=== PATIENT | male | born 1935 | race Caucasian/White ===

== ENCOUNTER → 2016-08-23 | Outpatient (CLI) | payer OTHER ==
[~2016-08-23] MED LIST: ASPI325T4 PO; CYAN10005 PO; GLC/500 PO; LOVA40TA3 PO; MULT-506 PO; ZOLP5TAB PO
[2016-08-23 09:39] LABS: BASO % 0.2 %; BASO ABS # 0.01 K/uL (0-0.2); COMPLETE YES; HEMATOCRIT 42.3 % (42-52); IG% 0.2 %; LYMPH % 41.2 %; LYMPH ABS # 1.86 K/uL (1.2-3.4); MEAN CELL VOLUME 98.4 fL (80-100); MEAN CORPUSCULAR HEMOGLOBIN 31.6 pg (25-34); MEAN CORPUSCULAR HGB CONC 32.2 g/dl (32-36); MEAN PLATELET VOLUME 10.6 fL (7.4-10.4); MONO % 10.8 %; NEUT % 43.6 %; PLATELET COUNT 193 K/uL (130-400); WHITE BLOOD COUNT 4.52 K/uL (4.8-10.8)
[2016-08-23 09:55] LABS: ESTIMATED AVERAGE GLUCOSE 120 mg/dl; HA1C FLAG Normal (Normal)
[2016-08-23 10:02] LABS: ALT/SGPT 20 U/L (12-78); BLOOD UREA NITROGEN 19 mg/dl (7-18); BUN/CREATININE RATIO 20.9 (10-20); CARBON DIOXIDE 30 mmol/L (21-32); CHLORIDE 109 mmol/L (98-107); CHOLESTEROL 158 mg/dl (0-200); CREATININE 0.89 mg/dl (0.60-1.40); GLUCOSE 114 mg/dl (70-99); POTASSIUM 4.1 mmol/L (3.5-5.1); SODIUM 145 mmol/L (136-145); TRIGLYCERIDES 61 mg/dl (0-150); VERY LOW DENSITY LIPOPROT CALC 12 mg/dl
[2016-08-23 10:07] LABS: ALB/GLOB RATIO 1.1 (0.9-2); ALKALINE PHOSPHATASE 49 U/L (45-117); AST/SGOT 15 U/L (15-37); CHOLESTEROL/HDL RATIO 2.3; HDL CHOLESTEROL 70 mg/dl; LDL CHOLESTEROL CALCULATED 76 mg/dl
== END | disposition home or self-care (01) ==
LOC: C.LAB 08:16
PROVIDERS: ATTEND Family Medicine
DX: E11.9 Type 2 diabetes mellitus without complications (principal); E78.5 Hyperlipidemia, unspecified; G47.30 Sleep apnea, unspecified; Z12.5 Encounter for screening for malignant neoplasm of prostate

== ENCOUNTER → 2017-02-24 | Outpatient (CLI) | payer OTHER ==
[2017-02-24 10:06] LABS: BASO % 0.4 %; BASO ABS # 0.02 K/uL (0-0.2); COMPLETE YES; EOS % 2.8 %; HEMATOCRIT 42.3 % (42-52); IG% 0.4 %; LYMPH % 30.1 %; LYMPH ABS # 1.41 K/uL (1.2-3.4); MEAN CELL VOLUME 98.1 fL (80-100); MEAN CORPUSCULAR HEMOGLOBIN 32.5 pg (25-34); MEAN CORPUSCULAR HGB CONC 33.1 g/dl (32-36); MEAN PLATELET VOLUME 10.4 fL (7.4-10.4); MONO % 11.1 %; NEUT % 55.2 %; PLATELET COUNT 189 K/uL (130-400); RED BLOOD COUNT 4.31 M/uL (4.7-6.1); WHITE BLOOD COUNT 4.68 K/uL (4.8-10.8)
[2017-02-24 10:17] LABS: ESTIMATED AVERAGE GLUCOSE 123 mg/dl; HA1C FLAG Normal (Normal)
[2017-02-24 10:46] LABS: VERY LOW DENSITY LIPOPROT CALC 12 mg/dl
[2017-02-24 10:50] LABS: ALT/SGPT 25 U/L (12-78); AST/SGOT 22 U/L (15-37); BLOOD UREA NITROGEN 16 mg/dl (7-18); BUN/CREATININE RATIO 19.1 (10-20); CALCIUM 8.8 mg/dl (8.5-10.1); CARBON DIOXIDE 28 mmol/L (21-32); CHLORIDE 105 mmol/L (98-107); CHOLESTEROL 143 mg/dl (0-200); CHOLESTEROL/HDL RATIO 2.3; CREATININE 0.83 mg/dl (0.60-1.40); GLUCOSE 120 mg/dl (70-99); LDL CHOLESTEROL CALCULATED 71 mg/dl; POTASSIUM 4.1 mmol/L (3.5-5.1); SODIUM 140 mmol/L (136-145); TRIGLYCERIDES 57 mg/dl (0-150)
[2017-02-24 11:06] LABS: ALKALINE PHOSPHATASE 64 U/L (45-117); HDL CHOLESTEROL 63 mg/dl; TOTAL IRON BINDING CAPACITY 289 mcg/dl (250-450)
== END | disposition home or self-care (01) ==
LOC: C.LAB 09:18
PROVIDERS: ATTEND Family Medicine
DX: E88.81 Metabolic syndrome and other insulin resistance (principal); E55.9 Vitamin D deficiency, unspecified; D51.9 Vitamin B12 deficiency anemia, unspecified; E78.9 Disorder of lipoprotein metabolism, unspecified; R53.83 Other fatigue

== ENCOUNTER → 2017-04-29 | Outpatient (CLI) | payer OTHER ==
--- NOTE | 2017-04-29 11:19 | DIAGNOSTIC IMAGING REPORT ---
CT SCAN OF THE ABDOMEN AND PELVIS WITHOUT IV CONTRAST CLINICAL HISTORY: Benign prostatic hyperplasia with urinary obstruction. COMPARISON STUDY: Abdominal CT dated 11/30/2015. TECHNIQUE: CT scan of the abdomen and pelvis is performed from the lung bases to the proximal femora. Images are reviewed in the axial, sagittal, and coronal planes. IV contrast was not administered for this examination as per the referring clinician. Note that the examination was performed in suboptimal fashion without IV contrast. A dose lowering technique was utilized adhering to the principles of ALARA. CT DOSE: 1515.63 mGy.cm FINDINGS: Lung bases: The heart is top normal in size and without pericardial effusion. Calcified pleural plaques are present at both lung bases. There are foci of bibasilar scarring versus atelectasis. Round atelectasis is suggested at the left lung base image #16. This is unchanged from 2016. There is a tiny hiatal hernia. Liver: The unenhanced liver is normal in size, contour, and attenuation. There is mild central intrahepatic biliary ductal dilatation. A calcified granuloma is noted in the right lobe. Gallbladder: Surgically absent. Spleen: Normal in size and attenuation. There are calcified splenic granulomas. Pancreas: The unenhanced pancreas is moderately atrophic and grossly unremarkable. Adrenal glands: Unremarkable. Kidneys: The unenhanced kidneys are atrophic and without hydronephrosis. There are at least 3 nonobstructing right renal calculi measuring up to 7 mm. No left renal calculi are seen. A 4 cm cyst arises from the upper pole of the left kidney. A 2.7 cm cyst is seen in the interpolar right kidney. Abdominal vasculature: The abdominal aorta is normal in course and caliber noting moderate atherosclerotic calcification. Bowel: There is mild to moderate colonic fecal retention. No bowel obstruction is seen. The appendix is not identified and reported surgically absent. Peritoneum: There is no intraperitoneal free air or abdominal ascites. Lymphadenopathy: None. Pelvic viscera: The the prostate gland is enlarged and heterogeneous, measuring 5.8 cm in transverse diameter. There is median lobe hypertrophy. Although decompressed, the bladder wall appears mildly thickened and trabeculated suggesting the sequelae of chronic outlet obstruction. Skeletal structures: The skeletal structures are osteopenic. Mild to moderate lumbosacral spondylosis is noted. No lytic or blastic lesions are seen. IMPRESSION: 1. Prostatomegaly with evidence of chronic bladder outlet obstruction. 2. Nonobstructing right renal calculi. 3. There are no acute infectious or inflammatory findings in the abdomen or pelvis. 4. Mild to moderate colonic fecal retention. 5. Additional findings as above. Electronically signed by: Kareem Bolden M.D. 04/29/2017 11:18 AM Dictated Date/Time: 04/29/2017 11:11 AM
== END | disposition home or self-care (01) ==
LOC: C.CTS 10:57
PROVIDERS: ATTEND Urology
DX: N40.1 Benign prostatic hyperplasia with lower urinary tract symptoms (principal); K59.00 Constipation, unspecified; N20.0 Calculus of kidney

== ENCOUNTER → 2017-05-26 | Outpatient (CLI) | payer OTHER ==
[~2017-05-26] MED LIST changes: +BERB1TAB PO; +FINA5TAB PO; +FLM4 PO; -GLC/500 PO; +HYDR-5688 PO; +LOVA20TA4 PO; -LOVA40TA3 PO; +PRT/20 PO
--- NOTE | 2017-05-26 13:57 | DIAGNOSTIC IMAGING REPORT ---
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 Appear to be similar compared to the prior study. Possible small calcification overlying the medial aspect left kidney. Bowel pattern is nonobstructive. Fecal material obscures components of the kidneys. 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 These findings are similar as compared to the CT study. The above report was generated using voice recognition software. It may contain grammatical, syntax or spelling errors. Electronically signed by: Vasu Chawla M.D. 05/26/2017 1:56 PM Dictated Date/Time: 05/26/2017 1:55 PM
== END | disposition home or self-care (01) ==
LOC: C.RAD 13:28
PROVIDERS: ATTEND Urology
DX: E83.59 Other disorders of calcium metabolism (principal); N29 Other disorders of kidney and ureter in diseases classified elsewhere

== ENCOUNTER → 2017-05-27 | Day surgery (SDC) | payer OTHER ==
[2017-05-16 13:02] LABS: BASO % 0.1 %; BASO ABS # 0.01 K/uL (0-0.2); EOS % 1.7 %; EOS ABS # 0.12 K/uL (0-0.5); HEMATOCRIT 42.9 % (42-52); HEMOGLOBIN 14.5 g/dL (14.0-18.0); IG# 0.03 K/uL (0.00-0.02); LYMPH % 22.7 %; LYMPH ABS # 1.63 K/uL (1.2-3.4); MEAN CELL VOLUME 96.2 fL (80-100); MEAN CORPUSCULAR HEMOGLOBIN 32.5 pg (25-34); MEAN CORPUSCULAR HGB CONC 33.8 g/dl (32-36); MEAN PLATELET VOLUME 10.3 fL (7.4-10.4); MONO % 7.4 %; MONO ABS # 0.53 K/uL (0.11-0.59); NEUT % 67.7 %; NEUT ABS # 4.86 K/uL (1.4-6.5); PLATELET COUNT 189 K/uL (130-400); RED CELL DISTRIBUTION WIDTH CV 13.2 % (11.5-14.5); RED CELL DISTRIBUTION WIDTH SD 46.9 fL (36.4-46.3); WHITE BLOOD COUNT 7.18 K/uL (4.8-10.8)
--- NOTE | 2017-05-16 13:09 | DIAGNOSTIC IMAGING REPORT ---
CHEST 2 VIEWS ROUTINE CLINICAL HISTORY: N20.0 [id number] COMPARISON STUDY: 12/18/2015 FINDINGS: Underlying emphysema is suspected. The heart is borderline enlarged. There is no lobar consolidation. There is a calcified left midlung zone granuloma. There is a small right pleural effusion. There is slight interstitial thickening at the lung bases right greater than left. Pleural calcifications on the right are suspected.[ IMPRESSION: Small right pleural effusion. Mild interstitial thickening. No evidence of focal pulmonary consolidation Electronically signed by: Portillo Nuñez M.D. 05/16/2017 1:07 PM Dictated Date/Time: 05/16/2017 1:06 PM
[2017-05-16 14:51] LABS: BLOOD UREA NITROGEN 13 mg/dl (7-18); CARBON DIOXIDE 30 mmol/L (21-32); POTASSIUM 4.1 mmol/L (3.5-5.1); SODIUM 142 mmol/L (136-145)
[2017-05-17 13:19] VITALS: Ht 180.3 cm; Wt 118.2 kg
[~2017-05-27] VITALS: Ht 180.3 cm; Wt 118.2 kg
[~2017-05-27] MED LIST changes: +ACETAMINOPHEN 325 MG TAB PO PRN; +ATROPINE SULFATE 0.1 MG/ML 5ML SYR IV PRN; +CIPROFLOXACIN 400MG / D5W IV SCH; +EpHEDrine SULFATE INJ 50 MG/ML AMP IV PRN; +EpHEDrine SULFATE INJ 50 MG/ML AMP ONE; +FENTANYL CITRATE INJ 50 MCG/1 ML 2 ML VIAL IV PRN; +FENTANYL CITRATE INJ 50 MCG/1 ML 2 ML VIAL ONE; +GLYCOPYRROLATE INJ 0.2 MG/ML VIAL ONE; +HYDROCODONE/ACETAMIN 5/325MG TAB PO PRN; +LACTATED RINGER'S 1000ML 1,000 ML IV SCH; +LIDOCAINE HCL 2% 2 ML VIAL (20MG/ML) ONE; +ONDANSETRON INJ 2 MG/ML 2 ML VIAL IV PRN; +PROPOFOL IV EMULSION 10 MG/ML 20 ML VIAL IV ONE; +SODIUM CHLORIDE 0.9% 1000ML 1,000 ML IV SCH
--- NOTE | 2017-05-27 07:29 | History & Physical Bridge Note ---
H&P Re-Evaluation Bridge Note: I have examined the patient, reviewed the History & Physical and in the interval since the performance of the History & Physical I have noted the following changes of clinical significance: No changes noted
--- NOTE | 2017-05-27 08:20 | [facility] Operative Report ---
Operative Report Operative Date May 27, 2017. Pre-Operative Diagnosis nephrolithiasis Post-Operative Diagnosis nephrolithiasis Procedure(s) Performed ESWL (right) Surgeon Ja Fell Cutter Surgeon(s) none Estimated Blood Loss 0cc Findings R renal stone (2 are very visible on fluoro - 3 on KUB) Drains None Anesthesia Type General Complication(s) none Disposition yes Indications stones Description of Procedure The patient was identified in the preoperative holding area, appropriate informed consent was reviewed and completed and the patient was transported to the operating suite. Upon arrival appropriate preoperative antibiotics were administered and general anesthesia induced. The patient was placed in supine position and the stone was localized under fluoroscopy. A total of 2500 shocks were delivered to the stone. There appeared to be good fragmentation of the stone. Details of this procedure can be found on the [facility] information sheet. At the conclusion of the case the patient was extubated and taken to the PACU in stable condition. There were no complications. I attest to the content of the Intraoperative Record and any orders documented therein. Any exceptions are noted below.
--- NOTE | 2017-05-27 08:23 | Discharge Instructions ---
Discharge Instructions Date of Service May 27, 2017. Admission Reason for Admission: Stones Discharge Discharge Diagnosis / Problem: stones Discharge Goals Goal(s): Decrease discomfort, Improve function, Increase independence, Improve disease control Activity Recommendations Activity Limitations: resume your previous activity Lifting Limitations: none Exercise/Sports Limitations: none May Resume Sexual Activity: when tolerated Shower/Bathe: no limitations Driving or Machine Use: resume 1 day after discharge . Instructions / Follow-Up Instructions / Follow-Up Please keep your previously scheduled follow up Current Hospital Diet Patient's current hospital diet: Discharge Diet Recommended Diet: Regular Diet Procedures Procedures Performed: ESWL (right) Pending Studies Studies pending at discharge: no Medical Emergencies . Who to Call and When: Medical Emergencies: If at any time you feel your situation is an emergency, please call 911 immediately. . Non-Emergent Contact Non-Emergency issues call your: Urologist Call Non-Emergent contact if: you have a fever, temperature is above 101.5, your pain is not controlled, your pain is worsening . . "Provider Documentation" section prepared by Hunter Jacome. . [place] Drug Monitoring Program Search Results: patient reviewed within database, no issues identified
[2017-05-27 09:40] VITALS: TEMP 36.2
[2017-05-27 10:12] VITALS: BP 158/81; PULSE 79; O2SAT 98
--- NOTE | 2017-05-27 10:42 | Anesthesia Progress Nt - [facility] ---
Anesthesia Post Op Note Date & Time May 27, 2017 at 10:42 Vital Signs Pain Intensity: 0 Vital Signs Past 12 Hours Date Time Temp Pulse Resp B/P (MAP) Pulse Ox O2 Delivery O2 Flow Rate FiO2 05/27/17 10:12 79 18 158/81 (106) 98 Room Air 05/27/17 09:40 36.2 71 18 142/80 (100) 94 Room Air 05/27/17 09:28 77 16 05/27/17 09:28 77 16 96 05/27/17 09:26 141/95 05/27/17 09:26 36.4 77 13 141/95 96 Room Air 05/27/17 09:23 67 16 100 05/27/17 09:23 67 16 05/27/17 09:20 147/74 05/27/17 09:18 57 15 100 05/27/17 09:18 58 15 05/27/17 09:15 142/76 05/27/17 09:13 74 16 100 05/27/17 09:13 63 16 05/27/17 09:10 141/82 05/27/17 09:08 73 15 05/27/17 09:08 72 15 100 05/27/17 09:05 143/75 05/27/17 09:03 67 16 100 05/27/17 09:03 68 16 05/27/17 09:00 146/80 05/27/17 08:58 75 18 100 05/27/17 08:58 74 18 05/27/17 08:55 138/78 05/27/17 08:53 82 17 100 05/27/17 08:53 80 17 05/27/17 08:50 146/81 05/27/17 08:49 147/86 05/27/17 08:48 36.3 74 16 147/86 100 Mask 6 05/27/17 06:40 36.7 74 18 183/87 (119) 98 Room Air Notes Mental Status: alert / awake / arousable, participated in evaluation Pt Amnestic to Procedure: Yes Nausea / Vomiting: adequately controlled Pain: adequately controlled Airway Patency, RR, SpO2: stable & adequate BP & HR: stable & adequate Hydration State: stable & adequate Anesthetic Complications: no major complications apparent
== END | disposition home or self-care (01) ==
LOC: X.SURG 06:18
PROVIDERS: ATTEND Urology
DX: N20.0 Calculus of kidney (principal); R31.0 Gross hematuria; N40.1 Benign prostatic hyperplasia with lower urinary tract symptoms; N13.8 Other obstructive and reflux uropathy; G47.30 Sleep apnea, unspecified; E78.5 Hyperlipidemia, unspecified; E11.9 Type 2 diabetes mellitus without complications; Z79.82 Long term (current) use of aspirin; Z79.899 Other long term (current) drug therapy

== ENCOUNTER → 2017-06-07 | Outpatient (CLI) | payer OTHER ==
[~2017-06-07] MED LIST changes: -ACETAMINOPHEN 325 MG TAB PO PRN; -ATROPINE SULFATE 0.1 MG/ML 5ML SYR IV PRN; -CIPROFLOXACIN 400MG / D5W IV SCH; -EpHEDrine SULFATE INJ 50 MG/ML AMP IV PRN; -EpHEDrine SULFATE INJ 50 MG/ML AMP ONE; -FENTANYL CITRATE INJ 50 MCG/1 ML 2 ML VIAL IV PRN; -FENTANYL CITRATE INJ 50 MCG/1 ML 2 ML VIAL ONE; -GLYCOPYRROLATE INJ 0.2 MG/ML VIAL ONE; -HYDROCODONE/ACETAMIN 5/325MG TAB PO PRN; -LACTATED RINGER'S 1000ML 1,000 ML IV SCH; -LIDOCAINE HCL 2% 2 ML VIAL (20MG/ML) ONE; -ONDANSETRON INJ 2 MG/ML 2 ML VIAL IV PRN; -PROPOFOL IV EMULSION 10 MG/ML 20 ML VIAL IV ONE; -SODIUM CHLORIDE 0.9% 1000ML 1,000 ML IV SCH
== END | disposition home or self-care (01) ==
LOC: C.LABSPEC 17:29
PROVIDERS: ATTEND Urology
DX: N20.0 Calculus of kidney (principal)

== ENCOUNTER → 2017-06-07 | Outpatient (CLI) | payer OTHER ==
--- NOTE | 2017-06-07 11:44 | DIAGNOSTIC IMAGING REPORT ---
KUB CLINICAL HISTORY: N20.0 NephrolithiasisTO BE DONE EITHER THE NIGHT BEFORE OR MORNI nephrocalcinosis COMPARISON STUDY: 05/26/2017 FINDINGS: Study is again compromised due to overlapping bowel with the kidneys. Right renal calcifications are similar. Left renal calcifications are poorly seen possibly due to overlying bowel content. Several pelvic vascular calcifications are unaltered. IMPRESSION: Stable right renal nephrocalcinosis. Nondiagnostic evaluation of the left kidney due to overlying bowel content. The above report was generated using voice recognition software. It may contain grammatical, syntax or spelling errors. Electronically signed by: Vasu Chawla M.D. 06/07/2017 11:43 AM Dictated Date/Time: 06/07/2017 11:41 AM
== END | disposition home or self-care (01) ==
LOC: C.RAD 11:18
PROVIDERS: ATTEND Urology
DX: N20.0 Calculus of kidney (principal)

== ENCOUNTER 2018-06-25 17:24 | Inpatient (IN) ==
[2018-06-25] MEDS ORDERED: ONDANSETRON INJ 2 MG/ML 2 ML VIAL IV STA (17:36)
[2018-06-25] MEDS ORDERED: SODIUM CHLORIDE 0.9% 1000ML 1,000 ML IV SCH (17:45)
[2018-06-25 17:58] LABS: Basophils # (auto) 0.01 K/uL (0-0.2); Basophils % (auto) 0.1 %; Eosinophils # (auto) 0.04 K/uL (0-0.5); Eosinophils % (auto) 0.4 %; Hematocrit (blood only) 43.9 % (42-52); Hemoglobin 15.3 g/dL (14.0-18.0); Immature Granulocytes # (auto) 0.04 K/uL (0.00-0.02); Immature Granulocytes % (auto) 0.4 %; Lymphocytes # (auto) 1.26 K/uL (1.2-3.4); Lymphocytes % (auto) 11.3 %; Mean Corpuscular Hgb Conc 34.9 g/dL (32-36); Mean Corpuscular Volume 96.9 fL (80-100); Mean Platelet Volume 10.4 fL (7.4-10.4); Monocytes # (auto) 1.02 K/uL (0.11-0.59); Monocytes % (auto) 9.2 %; Neutrophils # (auto) 8.77 K/uL (1.4-6.5); Neutrophils % (auto) 78.6 %; Platelet Count 233 K/uL (130-400); RDW Coefficient of Variation 13.7 % (11.5-14.5); RDW Standard Deviation 48.1 fL (36.4-46.3); Red Blood Count 4.53 M/uL (4.7-6.1); White Blood Count 11.14 K/uL (4.8-10.8)
[2018-06-25 18:07] LABS: iSTAT Creatinine 1.1 mg/dl (0.6-1.3); iSTAT Hemoglobin 15.6 g/dl (14.0-18.0); iSTAT Ionized Calcium 1.17 mmol/l (1.12-1.32)
[2018-06-25 18:09] LABS: INR 1.1 (0.9-1.1); Prothrombin Time 10.9 Seconds (9.0-12.0)
--- NOTE | 2018-06-25 18:17 | Emergency Department Note ---
Entered by Kareem Aguiar acting as a scribe for Sourav Bey DO History of Present Illness General Chief complaint: Abdominal Pain Stated complaint: STOMACH PAIN, VOMITING,DIARRHEA, Source: patient History of Present Illness Provider complaint: Abd pain Onset (ago): unknown Location: abdomen Maximum Pain Intensity: 5 Current Pain Intensity: 5 Quality: + aching Relieved By: + none Exacerbated By: + none Associated symptoms: + denies other symptoms (swelling in abd), + nausea/vomiting and + other (diarrhea); no fever/chills Treatments prior to arrival: none The patient is an 82 year old male who presents to the Emergency Room with complaints of abdominal pain. The patient states he has a "blockage" stating that this has happened to him in the past with the last event 1.5 years ago. He adds that in addition to his abdominal pain, he has nausea/vomiting and diarrhea. He adds that his last BM was 2 days ago. The patient denies fevers. The patient reports not being on blood thinners. He notes he has a history of kidney stones with the last one being 1 year ago. He adds that he has a past surgical history of an appendectomy and cholecystectomy. Home Medications Home Medications Medication Instructions Recorded Confirmed Type allopurinol 100 mg PO DAILY 06/25/18 06/25/18 History aspirin 325 mg PO DAILY 06/25/18 06/25/18 History cholecalciferol (vitamin D3) 1,000 unit PO DAILY 06/25/18 06/25/18 History [Vitamin D3] cyanocobalamin (vitamin B-12) 500 mcg PO DAILY 06/25/18 06/25/18 History [Vitamin B-12] finasteride 5 mg PO DAILY 06/25/18 06/25/18 History lovastatin 20 mg PO HS 06/25/18 06/25/18 History metformin 500 mg PO DAILY 06/25/18 06/25/18 History multivitamin 1 tab PO DAILY 06/25/18 06/25/18 History pantoprazole 40 mg PO BID 06/25/18 06/25/18 History saw palmetto 160 mg PO DAILY 06/25/18 06/25/18 History spironolacton-hydrochlorothiaz 1 tab PO DAILY 06/25/18 06/25/18 History tamsulosin 0.4 mg PO DAILY 06/25/18 06/25/18 History zolpidem 5 mg PO HS PRN 06/25/18 06/25/18 History Allergies Allergy/AdvReac Type Severity Reaction Status Date / Time No Known Allergies Allergy Verified 06/25/18 17:44 Past Med/Surg History Medical History BPH (benign prostatic hyperplasia) Congestive heart failure Diabetes mellitus, type 2 GERD (gastroesophageal reflux disease) Hearing deficit Hyperlipidemia Kidney stones Surgical History History of appendectomy S/P cholecystectomy Social History Preferred Language: Tristanian Communication Ability: Effective [employer] Required: No Beliefs That Will Affect Care: None Current Living Situation: Alone Other Information That Helps Us Care for You: No Feels Safe at Home: Yes Safety Concerns: Feels Safe At This Time Smoking Status: Former smoker Hx Alcohol Use: Yes Hx Substance Use: No Review of Systems See HPI for pertinent positives & negatives. and A total of 10 systems reviewed and were otherwise negative Physical Exam Vital Signs Vital Signs - 24 hr 06/25/18 17:29 06/25/18 19:10 06/25/18 22:53 Temperature 37.1 C 37.2 C 37.1 C Temperature Source Oral Oral Oral Sepsis Recent Fever Within 48 Hours No Sepsis Action Taken by Nursing No Action Required Pulse Rate 107 H Pulse Rate [Right Finger] 85 89 Pulse Rhythm [Right Finger] Pulse Strength [Right Finger] Respiratory Rate 20 16 16 Respiratory Effort / Characteristics Non-Labored Non-Labored Respiratory Depth Normal Normal Respiratory Pattern Regular Blood Pressure 145/85 H Blood Pressure [Right Arm] 154/80 H 126/70 Blood Pressure Mean 105 Blood Pressure Mean [Right Arm] 104 88 Blood Pressure Position [Right Arm] Sitting Pulse Oximetry 96 95 98 Oxygen Delivery Method Room Air Room Air Room Air 06/26/18 07:08 06/26/18 15:22 Temperature 36.8 C 36.7 C Temperature Source Oral Oral Sepsis Recent Fever Within 48 Hours Sepsis Action Taken by Nursing Pulse Rate Pulse Rate [Right Finger] 64 71 Pulse Rhythm [Right Finger] Regular Pulse Strength [Right Finger] Normal Respiratory Rate 16 18 Respiratory Effort / Characteristics Non-Labored Respiratory Depth Normal Respiratory Pattern Regular Blood Pressure Blood Pressure [Right Arm] 116/71 114/69 Blood Pressure Mean Blood Pressure Mean [Right Arm] 86 84 Blood Pressure Position [Right Arm] Lying Sitting Pulse Oximetry 93 97 Oxygen Delivery Method Room Air Room Air GENERAL: Patient is awake alert in no acute distress patient is resting comfortably and showing no signs of anxiety EYES: The conjunctivae are clear. The pupils are round and reactive. EARS, NOSE, MOUTH AND THROAT: The nose is without any evidence of any deformity. Mucous membranes are moist tongue is midline NECK: The neck is nontender and supple. RESPIRATORY: Normal respiratory effort is noted there is no evidence of wheezing rhonchi or rales CARDIOVASCULAR: Tachycardic rate with regular rhythm was noted. There is no definite murmur. GASTROINTESTINAL: Abdomen is moderately distended and diffusely tender. There is no guarding. MUSCULOSKELETAL/EXTREMITIES: There is no evidence of gross deformity full range of motion is noted in the hips and shoulders SKIN: There is no obvious evidence of any rash. Trace pedal edema was noted bilaterally. NEUROLOGIC: Patient is awake alert and oriented x3. Course 1735: The patient was evaluated in room B09, and a complete history and physical examination were performed. 1840: I reviewed the patient's case with Dr. Smith-Hospitalist. She will evaluate the patient for further management. Administered Medications Furosemide 10 mg/ Syringe 1 mls @ 4 mls/min IV DAILY MATT Stop: 07/26/18 08:59 Last Admin: 06/26/18 08:54 Dose: 4 mls/min Documented by: [id number] Pantoprazole Sodium 40 mg/ (Syringe) 10 mls @ 5 mls/min IV DAILY@1100 [facility] Stop: 07/26/18 10:59 Last Admin: 06/26/18 10:39 Dose: 5 mls/min Documented by: [id number] Insulin Aspart (Novolog Flexpen) 0 units SC Q6 MATT Stop: 07/26/18 00:00 Last Admin: 06/26/18 12:10 Dose: Not Given Documented by: [id number] Cosigned by: [id number] Admin: 06/26/18 05:26 Dose: Not Given Documented by: [id number] Cosigned by: [id number] Admin: 06/25/18 23:00 Dose: Not Given Documented by: [id number] Cosigned by: [id number] Ioversol (Optiray 320 100ml) 96 ml IV ONCE PRN PRN Reason: Interaction Checking Stop: 06/29/18 18:18 Last Admin: 06/25/18 18:19 Dose: 96 ml Documented by: [id number] Morphine Sulfate (Morphine Sulfate) 4 mg IV Q15M PRN PRN Reason: Pain Stop: 07/09/18 17:35 Last Admin: 06/26/18 02:13 Dose: 4 mg Documented by: [id number] Admin: 06/25/18 22:56 Dose: 4 mg Documented by: [id number] Zolpidem Tartrate (Ambien) 5 mg PO HS PRN PRN Reason: Sleep Stop: 07/25/18 19:12 Last Admin: 06/25/18 20:50 Dose: 5 mg Documented by: [id number] Discontinued Medications Fentanyl Citrate (Fentanyl Citrate) 50 mcg IV Q15M PRN PRN Reason: Pain Stop: 07/09/18 18:28 Last Admin: 06/25/18 19:05 Dose: 50 mcg Documented by: [id number] Sodium Chloride (Nss 1000ml) 1,000 mls @ 999 mls/hr IV .Q1H1M MATT Stop: 06/25/18 18:45 Last Infusion: 06/25/18 19:05 Dose: 0 mls/hr Documented by: [id number] Admin: 06/25/18 18:00 Dose: 999 mls/hr Documented by: [id number] Lactated Ringer's (Lr) 1,000 mls @ 100 mls/hr IV .Q10H MATT Stop: 07/25/18 19:12 Last Infusion: 06/26/18 10:22 Dose: 100 mls/hr Documented by: [id number] Infusion: 06/26/18 09:54 Dose: 0 mls/hr Documented by: [id number] Admin: 06/26/18 05:19 Dose: 100 mls/hr Documented by: [id number] Infusion: 06/26/18 05:19 Dose: 100 mls/hr Documented by: [id number] Admin: 06/25/18 19:40 Dose: 100 mls/hr Documented by: [id number] Magnesium Sulfate/Dextrose (Magnesium Sulfate / D5w) 1 gm in 100 mls @ 100 mls/hr IV Q1H MATT Stop: 06/26/18 10:59 Last Infusion: 06/26/18 12:10 Dose: 0 mls/hr Documented by: [id number] Admin: 06/26/18 10:36 Dose: 100 mls/hr Documented by: [id number] Infusion: 06/26/18 10:36 Dose: 0 mls/hr Documented by: [id number] Infusion: 06/26/18 09:53 Dose: 0 mls/hr Documented by: [id number] Admin: 06/26/18 08:54 Dose: 100 mls/hr Documented by: [id number] Potassium Chloride (K Clark / Wtr) 10 meq in 100 mls @ 100 mls/hr IV Q1H MATT Stop: 06/26/18 16:14 Last Admin: 06/26/18 14:50 Dose: Not Given Documented by: [id number] Ondansetron HCl (Zofran) 4 mg IV NOW STA Stop: 06/25/18 17:37 Last Admin: 06/25/18 18:00 Dose: 4 mg Documented by: [id number] Medical Decision Making Differential Diagnosis Differential diagnosis: Etiologies such as appendicitis, diverticulitis, PUD, biliary pathology, UTI, pancreatitis, obstruction, mesenteric ischemia, aortic pathology, infections, inflammatory bowel disease, renal colic, as well as others were entertained. Medical Records Attestation: I reviewed the patient's medical records. Home Medications Current Medication List: was personally reviewed by me Laboratory Data Attestation: I reviewed the patient's lab results. Result diagrams: 06/25/18 17:47 06/26/18 04:35 Lab Results 06/25/18 06/25/18 06/25/18 Range/Units 17:47 17:47 17:47 WBC 11.14 H (4.8-10.8) K/uL RBC 4.53 L (4.7-6.1) M/uL Hgb 15.3 (14.0-18.0) g/dL POC Hgb (14.0-18.0) g/dl Hct 43.9 (42-52) % POC Hct (42-52) % MCV 96.9 (80-100) fL MCH 33.8 (25-34) pg MCHC 34.9 (32-36) g/dL RDW Std Deviation 48.1 H (36.4-46.3) fL RDW Coeff of Mik 13.7 (11.5-14.5) % Plt Count 233 (130-400) K/uL MPV 10.4 (7.4-10.4) fL Immature Gran % (Auto) 0.4 % Neut % (Auto) 78.6 % Lymph % (Auto) 11.3 % Wood % (Auto) 9.2 % Eos % (Auto) 0.4 % Baso % (Auto) 0.1 % Immature Gran # (Auto) 0.04 H (0.00-0.02) K/uL Neut # (Auto) 8.77 H (1.4-6.5) K/uL Lymph # (Auto) 1.26 (1.2-3.4) K/uL Wood # (Auto) 1.02 H (0.11-0.59) K/uL Eos # (Auto) 0.04 (0-0.5) K/uL Baso # (Auto) 0.01 (0-0.2) K/uL PT 10.9 (9.0-12.0) Seconds INR 1.1 (0.9-1.1) POC Sodium (135-144) mEq/L Sodium 137 (136-145) mmol/L POC Potassium (3.3-5.0) mEq/L Potassium 3.9 (3.5-5.1) mmol/L POC Chloride (101-112) mEq/L Chloride 102 (98-107) mmol/L Carbon Dioxide 29 (21-32) mmol/L POC Total CO2 (24-31) mEq/l Anion Gap 6.0 (3-11) POC Anion Gap (16-25) mmol/L POC BUN (7-18) mg/dl BUN 21 H (7-18) mg/dl Creatinine 1.32 (0.6-1.4) mg/dl POC Creatinine (0.6-1.3) mg/dl Est Cr Clr Drug Dosing 51.6 ml/min Est GFR ( Amer) 57.8 Est GFR (Non-Af Amer) 49.9 BUN/Creatinine Ratio 15.7 (10-20) Glucose 160 H (70-99) mg/dl POC Glucose (70-99) POC Glucose (other) (70-99) mg/dl Estimat Average Glucose mg/dl Hemoglobin A1c (4.5-5.6) % Calcium 9.4 (8.5-10.1) mg/dl POC Ioniz Calcium Solitario (1.12-1.32) mmol/l Phosphorus (2.5-4.9) mg/dl Magnesium (1.8-2.4) mg/dl Total Bilirubin 0.9 (0.2-1) mg/dl AST 17 (15-37) U/L ALT 20 (12-78) U/L Alkaline Phosphatase 62 (45-117) U/L Total Protein 8.0 (6.4-8.2) gm/dl Albumin 3.9 (3.4-5.0) gm/dl Globulin 4.1 H (2.5-4.0) gm/dl Albumin/Globulin Ratio 1.0 (0.9-2) Lipase 82 (73-393) U/L Urine Color Urine Appearance (Clear) Urine pH (4.5-7.5) POC Urine pH Ur Specific [place] (1.000-1.030) Urine Protein (Negative) POC Urine Protein Urine Glucose (UA) (Negative) POC Ur Glucose (UA) Urine Ketones (Negative) POC Urine Ketones Urine Blood (Negative) POC Urine Blood Urine Nitrite (Negative) POC Urine Nitrite Urine Bilirubin (Negative) POC Urine Bilirubin Urine Urobilinogen (Negative) POC Urine Urobilinogen Ur Leukocyte Esterase (Negative) POC U Leukocyte Esteras 06/25/18 06/25/18 06/25/18 Range/Units 17:52 19:25 19:25 WBC (4.8-10.8) K/uL RBC (4.7-6.1) M/uL Hgb (14.0-18.0) g/dL POC Hgb 15.6 (14.0-18.0) g/dl Hct (42-52) % POC Hct 46 (42-52) % MCV (80-100) fL MCH (25-34) pg MCHC (32-36) g/dL RDW Std Deviation (36.4-46.3) fL RDW Coeff of Mik (11.5-14.5) % Plt Count (130-400) K/uL MPV (7.4-10.4) fL Immature Gran % (Auto) % Neut % (Auto) % Lymph % (Auto) % Wood % (Auto) % Eos % (Auto) % Baso % (Auto) % Immature Gran # (Auto) (0.00-0.02) K/uL Neut # (Auto) (1.4-6.5) K/uL Lymph # (Auto) (1.2-3.4) K/uL Wood # (Auto) (0.11-0.59) K/uL Eos # (Auto) (0-0.5) K/uL Baso # (Auto) (0-0.2) K/uL PT (9.0-12.0) Seconds INR (0.9-1.1) POC Sodium 139 (135-144) mEq/L Sodium (136-145) mmol/L POC Potassium 4.0 (3.3-5.0) mEq/L Potassium (3.5-5.1) mmol/L POC Chloride 99 L (101-112) mEq/L Chloride (98-107) mmol/L Carbon Dioxide (21-32) mmol/L POC Total CO2 26 (24-31) mEq/l Anion Gap (3-11) POC Anion Gap 18.0 (16-25) mmol/L POC BUN 21 H (7-18) mg/dl BUN (7-18) mg/dl Creatinine (0.6-1.4) mg/dl POC Creatinine 1.1 (0.6-1.3) mg/dl Est Cr Clr Drug Dosing ml/min Est GFR ( Amer) Est GFR (Non-Af Amer) BUN/Creatinine Ratio (10-20) Glucose (70-99) mg/dl POC Glucose (70-99) POC Glucose (other) 168 H (70-99) mg/dl Estimat Average Glucose mg/dl Hemoglobin A1c (4.5-5.6) % Calcium (8.5-10.1) mg/dl POC Ioniz Calcium Solitario 1.17 (1.12-1.32) mmol/l Phosphorus (2.5-4.9) mg/dl Magnesium (1.8-2.4) mg/dl Total Bilirubin (0.2-1) mg/dl AST (15-37) U/L ALT (12-78) U/L Alkaline Phosphatase (45-117) U/L Total Protein (6.4-8.2) gm/dl Albumin (3.4-5.0) gm/dl Globulin (2.5-4.0) gm/dl Albumin/Globulin Ratio (0.9-2) Lipase (73-393) U/L Urine Color Yellow Urine Appearance Clear (Clear) Urine pH 7.0 (4.5-7.5) POC Urine pH Cancelled Ur Specific [place] > 1.045 H (1.000-1.030) Urine Protein Negative (Negative) POC Urine Protein Cancelled Urine Glucose (UA) Negative (Negative) POC Ur Glucose (UA) Cancelled Urine Ketones Negative (Negative) POC Urine Ketones Cancelled Urine Blood Negative (Negative) POC Urine Blood Cancelled Urine Nitrite Negative (Negative) POC Urine Nitrite Cancelled Urine Bilirubin Negative (Negative) POC Urine Bilirubin Cancelled Urine Urobilinogen Negative (Negative) POC Urine Urobilinogen Cancelled Ur Leukocyte Esterase Negative (Negative) POC U Leukocyte Esteras Cancelled 06/25/18 06/26/18 06/26/18 Range/Units 22:52 04:35 04:35 WBC (4.8-10.8) K/uL RBC (4.7-6.1) M/uL Hgb (14.0-18.0) g/dL POC Hgb (14.0-18.0) g/dl Hct (42-52) % POC Hct (42-52) % MCV (80-100) fL MCH (25-34) pg MCHC (32-36) g/dL RDW Std Deviation (36.4-46.3) fL RDW Coeff of Mik (11.5-14.5) % Plt Count (130-400) K/uL MPV (7.4-10.4) fL Immature Gran % (Auto) % Neut % (Auto) % Lymph % (Auto) % Wood % (Auto) % Eos % (Auto) % Baso % (Auto) % Immature Gran # (Auto) (0.00-0.02) K/uL Neut # (Auto) (1.4-6.5) K/uL Lymph # (Auto) (1.2-3.4) K/uL Wood # (Auto) (0.11-0.59) K/uL Eos # (Auto) (0-0.5) K/uL Baso # (Auto) (0-0.2) K/uL PT (9.0-12.0) Seconds INR (0.9-1.1) POC Sodium (135-144) mEq/L Sodium 141 (136-145) mmol/L POC Potassium (3.3-5.0) mEq/L Potassium 3.8 (3.5-5.1) mmol/L POC Chloride (101-112) mEq/L Chloride 106 (98-107) mmol/L Carbon Dioxide 29 (21-32) mmol/L POC Total CO2 (24-31) mEq/l Anion Gap 6.0 (3-11) POC Anion Gap (16-25) mmol/L POC BUN (7-18) mg/dl BUN 21 H (7-18) mg/dl Creatinine 1.13 (0.6-1.4) mg/dl POC Creatinine (0.6-1.3) mg/dl Est Cr Clr Drug Dosing 66.6 ml/min Est GFR ( Amer) 69.8 Est GFR (Non-Af Amer) 60.2 BUN/Creatinine Ratio 18.9 (10-20) Glucose 135 H (70-99) mg/dl POC Glucose 121 H (70-99) POC Glucose (other) (70-99) mg/dl Estimat Average Glucose 146 mg/dl Hemoglobin A1c 6.7 H (4.5-5.6) % Calcium 8.5 (8.5-10.1) mg/dl POC Ioniz Calcium Solitario (1.12-1.32) mmol/l Phosphorus 3.1 (2.5-4.9) mg/dl Magnesium 1.6 L (1.8-2.4) mg/dl Total Bilirubin (0.2-1) mg/dl AST (15-37) U/L ALT (12-78) U/L Alkaline Phosphatase (45-117) U/L Total Protein (6.4-8.2) gm/dl Albumin (3.4-5.0) gm/dl Globulin (2.5-4.0) gm/dl Albumin/Globulin Ratio (0.9-2) Lipase (73-393) U/L Urine Color Urine Appearance (Clear) Urine pH (4.5-7.5) POC Urine pH Ur Specific [place] (1.000-1.030) Urine Protein (Negative) POC Urine Protein Urine Glucose (UA) (Negative) POC Ur Glucose (UA) Urine Ketones (Negative) POC Urine Ketones Urine Blood (Negative) POC Urine Blood Urine Nitrite (Negative) POC Urine Nitrite Urine Bilirubin (Negative) POC Urine Bilirubin Urine Urobilinogen (Negative) POC Urine Urobilinogen Ur Leukocyte Esterase (Negative) POC U Leukocyte Esteras 04/08/19 04/08/19 Range/Units 05:21 12:07 WBC (4.8-10.8) K/uL RBC (4.7-6.1) M/uL Hgb (14.0-18.0) g/dL POC Hgb (14.0-18.0) g/dl Hct (42-52) % POC Hct (42-52) % MCV (80-100) fL MCH (25-34) pg MCHC (32-36) g/dL RDW Std Deviation (36.4-46.3) fL RDW Coeff of Mik (11.5-14.5) % Plt Count (130-400) K/uL MPV (7.4-10.4) fL Immature Gran % (Auto) % Neut % (Auto) % Lymph % (Auto) % Wood % (Auto) % Eos % (Auto) % Baso % (Auto) % Immature Gran # (Auto) (0.00-0.02) K/uL Neut # (Auto) (1.4-6.5) K/uL Lymph # (Auto) (1.2-3.4) K/uL Wood # (Auto) (0.11-0.59) K/uL Eos # (Auto) (0-0.5) K/uL Baso # (Auto) (0-0.2) K/uL PT (9.0-12.0) Seconds INR (0.9-1.1) POC Sodium (135-144) mEq/L Sodium (136-145) mmol/L POC Potassium (3.3-5.0) mEq/L Potassium (3.5-5.1) mmol/L POC Chloride (101-112) mEq/L Chloride (98-107) mmol/L Carbon Dioxide (21-32) mmol/L POC Total CO2 (24-31) mEq/l Anion Gap (3-11) POC Anion Gap (16-25) mmol/L POC BUN (7-18) mg/dl BUN (7-18) mg/dl Creatinine (0.6-1.4) mg/dl POC Creatinine (0.6-1.3) mg/dl Est Cr Clr Drug Dosing ml/min Est GFR ( Amer) Est GFR (Non-Af Amer) BUN/Creatinine Ratio (10-20) Glucose (70-99) mg/dl POC Glucose 128 H 111 H (70-99) POC Glucose (other) (70-99) mg/dl Estimat Average Glucose mg/dl Hemoglobin A1c (4.5-5.6) % Calcium (8.5-10.1) mg/dl POC Ioniz Calcium Solitario (1.12-1.32) mmol/l Phosphorus (2.5-4.9) mg/dl Magnesium (1.8-2.4) mg/dl Total Bilirubin (0.2-1) mg/dl AST (15-37) U/L ALT (12-78) U/L Alkaline Phosphatase (45-117) U/L Total Protein (6.4-8.2) gm/dl Albumin (3.4-5.0) gm/dl Globulin (2.5-4.0) gm/dl Albumin/Globulin Ratio (0.9-2) Lipase (73-393) U/L Urine Color Urine Appearance (Clear) Urine pH (4.5-7.5) POC Urine pH Ur Specific [place] (1.000-1.030) Urine Protein (Negative) POC Urine Protein Urine Glucose (UA) (Negative) POC Ur Glucose (UA) Urine Ketones (Negative) POC Urine Ketones Urine Blood (Negative) POC Urine Blood Urine Nitrite (Negative) POC Urine Nitrite Urine Bilirubin (Negative) POC Urine Bilirubin Urine Urobilinogen (Negative) POC Urine Urobilinogen Ur Leukocyte Esterase (Negative) POC U Leukocyte Esteras Imaging Data Radiologist's Impression: Radiology results as stated below per my review and the radiologist's interpretation: CT abd pelvis IV con only CLINICAL HISTORY: 82 years-old Male presenting with Central abdominal pain since last night. TECHNIQUE: Multidetector CT of the abdomen and pelvis was performed after the administration of intravenous contrast. IV contrast: 96 mL of Optiray 320. One or more dose lowering techniques were used consistent with the principles of ALARA (as low as reasonably achievable), including automatic exposure control, mA or kV adjustment to individual patient size, and/or use of iterative recons truction. COMPARISON: 04/29/2017. CT DOSE (mGy.cm): The estimated cumulative dose is 1601.39 mGy.cm. FINDINGS: [employer] topogram: Unremarkable. Lung bases: Normal heart size. Coronary artery calcification. Calcified pleural plaques with trace pleural fluid or pleural thickening. Rounded atelectasis in the medial basal left lower lobe. Liver: Normal morphology. Parenchymal calcification may suggest a history of granulomatous disease. No liver lesion. Patent hepatic vasculature. Biliary: Mild biliary ductal prominence likely a reservoir effect in the post cholecystectomy state. Gallbladder surgically absent. Pancreas: Normal. Spleen: Parenchymal calcification suggest a history of granulomatous disease. Adrenal glands: Normal. Kidneys and ureters: Well-defined hypodensity in the right kidney compatible with simple cysts. Exophytic left renal cyst suspected. No hydronephrosis. Renovascular calcification suspected in addition to few punctate nonobstructing right renal calculi. Bladder: Incompletely evaluated secondary to underdistention. Pelvic organs: Prostate enlargement likely secondary to benign prostatic hyperplasia. Bowel: Few diverticula in the distal sigmoid colon without associated inflammatory change. Intramural lipoma noted at the hepatic flexure. The appendix is absent. Feces noted in the small bowel focally in a short segment in the mid abdomen. This appearance is new from prior. This tapers up stream to distended jejunum, which measures up to 4.4 cm in diameter. A focal transition point is suspected in the anterior mid abdomen (series 3 image 245). No focal mass or inflammatory change in this region. This may indicate the presence of underlying adhesions. Trace hiatal hernia. Peritoneal cavity: No free fluid or intraperitoneal gas. Lymph nodes: No enlarged lymph nodes in the abdomen or pelvis. Vasculature: Atherosclerosis of the normal caliber abdominal aorta. IVC patent. Abdominal wall: Postsurgical changes of the midline ventral abdominal wall. Fat- containing inguinal hernia suspected. Musculoskeletal: Degenerative changes of the spine. IMPRESSION: 1. Small bowel obstruction in the anterior mid abdomen likely secondary to adhesions. This is most likely a high-grade partial obstruction. 2. Postsurgical changes of appendectomy. 3. Postsurgical changes of the midline ventral abdominal wall. This may relate to an open appendectomy among other etiologies. 4. Findings suggest prior asbestos exposure. 5. Findings suggest prior granulomatous disease. Electronically signed by: Jordan Earl M.D. 06/25/2018 6:37 PM Blood Pressure Blood Pressure Findings: Elevated blood pressure Blood Pressure Disposition: further management by hospitalist TIFFANY Narrative The patient is an 82-year-old male who presented to the emergency department for an evaluation of abdominal pain and nausea. The patient is a history of bowel obstruction in the past and felt his presentation today was consistent with a bowel obstruction. He was treated with IV fluids IV pain medication and IV antiemetics. On subsequent reevaluation he was feeling much better. I discussed the patient's laboratory and radiographic studies with him. His CT appear to be consistent with a bowel obstruction. The patient has had similar episodes in the past. He is normally managed medically and is not required surgical intervention on his bowel obstruction. I discussed his case with the on-call [facility] hospitalist group. They have agreed to evaluate the patient in the emergency department for further management and disposition. Impression & Plan SBO (small bowel obstruction), Abdominal pain Discharge Plan Visit Data *Final* Discharge Date/Time: 06/25/18 18:59 Chief Complaint: Abdominal Pain Stated Complaint: STOMACH PAIN, VOMITING,DIARRHEA, ED Provider: Sourav Bey Discharge Problem: SBO (small bowel obstruction), Abdominal pain Patient Disposition: Admitted As Inpatient Discharge Instructions Interventions: ED Discharge Assessment Last Done: 06/25/18 18:59 Discharge Problem: Abdominal pain Qualifiers: Abdominal location: unspecified location Qualified Code(s): R10.9 - Unspecified abdominal pain The scribe's documentation has been prepared under my direction and personally reviewed by me in its entirety. I confirm that the note above accurately reflects all work, treatment, procedures, and medical decision making performed by me.
[2018-06-25] MEDS ORDERED: IOVERSOL 100ml IV PRN (18:19)
[2018-06-25 18:23] LABS: Albumin Level 3.9 gm/dl (3.4-5.0); BUN Creatinine Ratio 15.7 (10-20); Calcium 9.4 mg/dl (8.5-10.1); Creatinine Clr Calc Pharmacy 51.6 ml/min; Est GFR (African American) 57.8; Est GFR (Non-African American) 49.9; Potassium 3.9 mmol/L (3.5-5.1)
[2018-06-25 18:26] LABS: Bilirubin,Total 0.9 mg/dl (0.2-1); Globulin 4.1 gm/dl (2.5-4.0)
[2018-06-25] MEDS ORDERED: fentaNYL citrate 100 MCG/2 ML VIAL IV PRN (18:29)
--- NOTE | 2018-06-25 18:39 | CT Scan Report ---
CT abd pelvis IV con only CLINICAL HISTORY: 82 years-old Male presenting with Central abdominal pain since last night. TECHNIQUE: Multidetector CT of the abdomen and pelvis was performed after the administration of intra venous contrast. IV contrast: 96 mL of Optiray 320. One or more dose lowering techniques were used co nsistent with the principles of ALARA (as low as reasonably achievable), including automatic exposure control, mA or kV adjustment to individual patient size, and/or use of iterative reconstruction. COMPARISON: 04/29/2017. CT DOSE (mGy.cm): The estimated cumulative dose is 1601.39 mGy.cm. FINDINGS: Extension Course Coordinator topogram: Unremarkable. Lung bases: Normal heart size. Coronary artery calcification. Calcified pleural plaques with trace pl eural fluid or pleural thickening. Rounded atelectasis in the medial basal left lower lobe. Liver: Normal morphology. Parenchymal calcification may suggest a history of granulomatous disease. N o liver lesion. Patent hepatic vasculature. Biliary: Mild biliary ductal prominence likely a reservoir effect in the post cholecystectomy state. Gallbladder surgically absent. Pancreas: Normal. Spleen: Parenchymal calcification suggest a history of granulomatous disease. Adrenal glands: Normal. Kidneys and ureters: Well-defined hypodensity in the right kidney compatible with simple cysts. Exoph ytic left renal cyst suspected. No hydronephrosis. Renovascular calcification suspected in addition t o few punctate nonobstructing right renal calculi. Bladder: Incompletely evaluated secondary to underdistention. Pelvic organs: Prostate enlargement likely secondary to benign prostatic hyperplasia. Bowel: Few diverticula in the distal sigmoid colon without associated inflammatory change. Intramural lipoma noted at the hepatic flexure. The appendix is absent. Feces noted in the small bowel focally in a short segment in the mid abdomen. This appearance is new from prior. This tapers up stream to di stended jejunum, which measures up to 4.4 cm in diameter. A focal transition point is suspected in th e anterior mid abdomen (series 3 image 245). No focal mass or inflammatory change in this region. Thi s may indicate the presence of underlying adhesions. Trace hiatal hernia. Peritoneal cavity: No free fluid or intraperitoneal gas. Lymph nodes: No enlarged lymph nodes in the abdomen or pelvis. Vasculature: Atherosclerosis of the normal caliber abdominal aorta. IVC patent. Abdominal wall: Postsurgical changes of the midline ventral abdominal wall. Fat-containing inguinal h ernia suspected. Musculoskeletal: Degenerative changes of the spine. IMPRESSION: 1. Small bowel obstruction in the anterior mid abdomen likely secondary to adhesions. This is most l ikely a high-grade partial obstruction. 2. Postsurgical changes of appendectomy. 3. Postsurgical changes of the midline ventral abdominal wall. This may relate to an open appendecto my among other etiologies. 4. Findings suggest prior asbestos exposure. 5. Findings suggest prior granulomatous disease. Electronically signed by: Jordan Earl M.D. 06/25/2018 6:37 PM
--- NOTE | 2018-06-25 18:50 | History & Physical Report ---
Date of Service June 25, 2018 Assessment & Plan (1) Small bowel obstruction: As noted on CT AP Pt feeling improved, will hold on NGT for now Hx of conservative management, will hold on surgical c/s for now IVF, NPO CBC, PRP WNL (2) Renal stones: Allopurinol use is for renal stones (3) CHF (congestive heart failure): Holding spirono/HCTZ med Lasix 10mg IV (4) Hyperlipidemia: Holding statin (5) GERD (gastroesophageal reflux disease): Change to IV (6) DM type 2 (diabetes mellitus, type 2): Metformin use only, will hold SSI PRN A1c pending (7) BPH (benign prostatic hyperplasia): Holding home meds (8) DVT prophylaxis: SCDs in case of need for OR History of Present Illness Primary Care Provider: [place] Foster 82 y/o M c/o abd pain. Pt states he started to have abd pain and distention yesterday. Abd pain is in the middle of his abd. He developed n/v as well. He was initially throwing up food, however his emesis today has been all liquid. Last emesis was about 3 hours ago. Last bowel movement was last night around 8p. Last PO was also around 8p last night. Pt denies fever, SOB, chest pain, LE pain or swelling. Pt has hx of SBO, he states 6-7 times. He states this happens about every 1-1.5 years. He has had what he describes as a small bowel follow through and "nothing has ever been found". They are believed to be due to adhesions from prior surgeries. Every episode has resolved with conservative management. Pt states that this is very similar to his prior SBO episodes. Pt was given IVF in the ED. No NGT placed. He states he is feeling his abd pain and distention are already improved. Allergies Allergy/AdvReac Type Severity Reaction Status Date / Time No Known Allergies Allergy Verified 06/25/18 17:44 Home Medications Home Medications Medication Instructions Recorded Confirmed Type allopurinol 100 mg PO DAILY 06/25/18 06/25/18 History aspirin 325 mg PO DAILY 06/25/18 06/25/18 History cholecalciferol (vitamin D3) 1,000 unit PO DAILY 06/25/18 06/25/18 History [Vitamin D3] cyanocobalamin (vitamin B-12) 500 mcg PO DAILY 06/25/18 06/25/18 History [Vitamin B-12] finasteride 5 mg PO DAILY 06/25/18 06/25/18 History lovastatin 20 mg PO HS 06/25/18 06/25/18 History metformin 500 mg PO DAILY 06/25/18 06/25/18 History multivitamin 1 tab PO DAILY 06/25/18 06/25/18 History pantoprazole 40 mg PO BID 06/25/18 06/25/18 History saw palmetto 160 mg PO DAILY 06/25/18 06/25/18 History spironolacton-hydrochlorothiaz 1 tab PO DAILY 06/25/18 06/25/18 History tamsulosin 0.4 mg PO DAILY 06/25/18 06/25/18 History zolpidem 5 mg PO HS PRN 06/25/18 06/25/18 History Past Med/Surg History Surgical History History of appendectomy S/P cholecystectomy Social History Feels Safe at Home: Yes Smoking Status: Former smoker Hx Alcohol Use: Yes (1 glass of wine most nights a week) Hx Substance Use: No Review of Systems Pertinent positives and negatives reviewed in HPI--all others negative Physical Exam Vital Signs (Past 24 Hours): Last Vital Signs Temp 37.1 C 06/25/18 17:29 Pulse 107 H 06/25/18 17:29 Resp 20 06/25/18 17:29 BP 145/85 H 06/25/18 17:29 Pulse Ox 96 06/25/18 17:29 Constitutional: WD/WN, vitals as above Eyes: normal visual [place] by confrontation and + anicteric sclerae Neck: normal visual inspection and trachea midline Respiratory: normal respiratory effort, lungs clear to auscultation Cardiovascular: Rate/Rhythm: regular rate and regular rhythm Gastrointestinal (Abdomen): Inspection/Auscultation: + abdomen distended and normal bowel sounds Percussion/Palpation: + abdomen tender (umbilical) and abdomen soft Musculoskeletal: Head/Neck/Chest: normocephalic and head atraumatic negative for edema, peripheral pulses intact Skin: no rashes, warm and dry Neurologic: awake; not confused Speech / Cognition: normal speech Psychiatric: A+Ox3, euthymic affect Results & Data Diagnostic Findings CT AP: 1. Small bowel obstruction in the anterior mid abdomen likely secondary to adhesions. This is most likely a high-grade partial obstruction. 2. Postsurgical changes of appendectomy. 3. Postsurgical changes of the midline ventral abdominal wall. This may relate to an open appendectomy among other etiologies. 4. Findings suggest prior asbestos exposure. 5. Findings suggest prior granulomatous disease Code Status & VTE Plan Code Status Full code VTE Prophylaxis Plan VTE Prophylaxis will be ordered: Yes
[2018-06-25] MEDS ORDERED: GLUCOSE 10 TABS/TUBE PO PRN (19:13)
[2018-06-25] MEDS ORDERED: GLUCAGON FOR INJ 1 MG VIAL SQ PRN (19:13)
[2018-06-25] MEDS ORDERED: ACETAMINOPHEN 325 MG TAB PO PRN (19:13)
[2018-06-25] MEDS ORDERED: MAGNESIUM HYDROXIDE SUSP 30 ML UDC PO PRN (19:13)
[2018-06-25] MEDS ORDERED: GLUCOSE 40% GEL 15 GM TUBE PO PRN (19:13)
[2018-06-25] MEDS ORDERED: DEXTROSE 50% 50 ML SYRINGE IV PRN (19:13)
[2018-06-25] MEDS ORDERED: ONDANSETRON INJ 2 MG/ML 2 ML VIAL IV PRN (19:13)
[2018-06-25] MEDS ORDERED: CARBOHYDRATES FOR HYPOGLYCEMIA PO PRN (19:13)
[2018-06-25] MEDS: LACTATED RINGER'S 1,000 ML IV SCH (19:40)
[2018-06-25 19:51] LABS: Appearance Urine Clear (Clear); Bilirubin Urine Negative (Negative); Blood Urine Negative (Negative); Color Urine Yellow; Glucose Urine UA Negative (Negative); Ketones Urine Negative (Negative); Leukocyte Esterase Urine Negative (Negative); Nitrite Urine Negative (Negative); Protein Urine Negative (Negative); Specific Gravity Urine > 1.045 (1.000-1.030); Urobilinogen Urine Negative (Negative)
[2018-06-25] MEDS ORDERED: Nursing to Pharmacy Communication ONE (19:53)
[2018-06-25] MEDS: ZOLPIDEM TARTRATE 5 MG TAB PO PRN (20:50)
[2018-06-25] MEDS ORDERED: INSULIN ASPART 100 UNITS/ML 3 ML PEN SC SCH (21:00)
[2018-06-25] MEDS: MoRPHine SULFATE 4 MG/ML 1 ML CARP\\VIAL IV PRN (22:56)
[2018-06-25] MEDS: INSULIN ASPART 100 UNITS/ML 3 ML PEN SC SCH (23:00)
[2018-06-26] MEDS: MoRPHine SULFATE 4 MG/ML 1 ML CARP\\VIAL IV PRN (02:13)
[2018-06-26] MEDS: LACTATED RINGER'S 1,000 ML IV SCH (05:19)
[2018-06-26 05:22] LABS: BUN Creatinine Ratio 18.9 (10-20); Calcium 8.5 mg/dl (8.5-10.1); Creatinine Clr Calc Pharmacy 66.6 ml/min; Est GFR (African American) 69.8; Est GFR (Non-African American) 60.2; Magnesium 1.6 mg/dl (1.8-2.4); Potassium 3.8 mmol/L (3.5-5.1)
[2018-06-26 05:25] LABS: Phosphorus 3.1 mg/dl (2.5-4.9)
[2018-06-26] MEDS: INSULIN ASPART 100 UNITS/ML 3 ML PEN SC SCH ×3 (05:26→18:58)
[2018-06-26 08:35] LABS: Estimated Average Glucose 146 mg/dl; Hemoglobin A1C 6.7 % (4.5-5.6)
[2018-06-26] MEDS: MAGNESIUM SULFATE / D5W 1 GM/100 ML BAG IV SCH ×2 (08:54→10:36)
[2018-06-26] MEDS: FUROSEMIDE 10 MG in SYRINGE 0 ML IV SCH (08:54)
[2018-06-26] MEDS: PANTOprazole 40 MG in SYRINGE 0 ML IV SCH (10:39)
--- NOTE | 2018-06-26 13:13 | Hospitalist Progress Note ---
Date of Service June 26, 2018 Assessment & Plan (1) Small bowel obstruction: - Noted on CT of A/P at admission; h/o SBO -- likely related to abdominal adhesions. - Passing flatus, has not had a BM yet. Will continue to monitor. - KUB is pending. - No significant N/V noted -- holding NG tube. - Will hold surgery consult at this time. - NPO except meds; IV fluids at 100 cc/hr. (2) Renal stones: - Follows with urology. - Most recent renal US in May 2018 showed small non obstructiing left renal calcification. - Holding Allopurinol 100 mg daily while NPO. (3) Chronic systolic heart failure: - No recent documented TTE to eval for EF. - Holding home Spironolactone/HCTZ. - Started Lasix 10 mg IV daily as pt. is receiving IV fluids due to NPO status. - Monitor daily weights and I/Os. (4) Hyperlipidemia: - Holding home statin and aspirin due to NPO status. (5) GERD (gastroesophageal reflux disease): - PPI IV while NPO. (6) DM type 2 (diabetes mellitus, type 2): - Hold home Metformin. - SSI with gluc checks q6hr while NPO. - Hemoglobin A1C was 6.7 -- will need to follow up with PCP. (7) BPH (benign prostatic hyperplasia): - Hold home Finasteride and Flomax while NPO. (8) Electrolyte abnormality: - Mag level 1.6 - ordered mag sulfate 2 gm IV. - K level 3.8 -- add KCl 20 mEq to IV fluids to maintain K >4.0. (9) DVT prophylaxis: - SCDs; hold Lovenox for possible procedure. Dispo: Med/surg for conversative treatment of SBO. Supervising Physician Co-Signing Physician Notes PA Supervision Note: I did not personally see or examine the patient today, but I verified all tatum points of ADAM Gale's assessment and plan with the following exceptions/additions: None Subjective Pt. states abdominal pain is now improved -- rated as a 2/10. Pain was rated as a 5/10 on pain scale yesterday. Denies nausea/vomiting. Is passing gas but has not had a BM since admission. Will keep NPO until obstruction is resolving, no indication for NG tube. Review of Systems All systems reviewed & are unremarkable except as noted in HPI & below Constitutional: + fatigue and + weakness; no fever, no chills and no anorexia Respiratory: no cough and no dyspnea Cardiovascular: no chest pain, no palpitations and no edema Gastrointestinal: + abdominal pain and + constipation; no nausea and no vomiting Genitourinary (Male): no difficulty urinating Musculoskeletal: no joint pain Allergy / Immunological: no rash Physical Exam Vital Signs (Past 24 Hours): Last Vital Signs Temp 36.8 C 06/26/18 07:08 Pulse 64 06/26/18 07:08 Resp 16 06/26/18 07:08 BP 116/71 06/26/18 07:08 Pulse Ox 93 06/26/18 07:08 Physical Exam: General: Resting comfortably in no apparent distress; A&OX3 HEENT: NC/AT; PERRLA with EOMI; [place] conjunctiva, MMM. Neck: Supple and nontender Cardiac: RRR w/o murmurs, gallops or rubs Lungs: CTA bilaterally; No rhonchi, wheezing, or rales Abdomen: Bowel normoactive X 4; Tenderness to light palpation over lower abdomen. Extremities: Warm. No edema present Neuro: No focal weakness Skin: No rash Results & Data Laboratory Results 06/26/18 06/26/18 06/26/18 Range/Units 12:07 05:21 04:35 WBC (4.8-10.8) K/uL RBC (4.7-6.1) M/uL Hgb (14.0-18.0) g/dL POC Hgb (14.0-18.0) g/dl Hct (42-52) % POC Hct (42-52) % MCV (80-100) fL MCH (25-34) pg MCHC (32-36) g/dL RDW Std Deviation (36.4-46.3) fL RDW Coeff of Mik (11.5-14.5) % Plt Count (130-400) K/uL MPV (7.4-10.4) fL Immature Gran % (Auto) % Neut % (Auto) % Lymph % (Auto) % [place] % (Auto) % Eos % (Auto) % Baso % (Auto) % Immature Gran # (Auto) (0.00-0.02) K/uL Neut # (Auto) (1.4-6.5) K/uL Lymph # (Auto) (1.2-3.4) K/uL [place] # (Auto) (0.11-0.59) K/uL Eos # (Auto) (0-0.5) K/uL Baso # (Auto) (0-0.2) K/uL PT (9.0-12.0) Seconds INR (0.9-1.1) POC Sodium (135-144) mEq/L Sodium (136-145) mmol/L POC Potassium (3.3-5.0) mEq/L Potassium (3.5-5.1) mmol/L POC Chloride (101-112) mEq/L Chloride (98-107) mmol/L Carbon Dioxide (21-32) mmol/L POC Total CO2 (24-31) mEq/l Anion Gap (3-11) POC Anion Gap (16-25) mmol/L POC BUN (7-18) mg/dl BUN (7-18) mg/dl Creatinine (0.6-1.4) mg/dl POC Creatinine (0.6-1.3) mg/dl Est Cr Clr Drug Dosing ml/min Est GFR ( Amer) Est GFR (Non-Af Amer) BUN/Creatinine Ratio (10-20) Glucose (70-99) mg/dl POC Glucose 111 H 128 H (70-99) POC Glucose (other) (70-99) mg/dl Estimat Average Glucose 146 mg/dl Hemoglobin A1c 6.7 H (4.5-5.6) % Calcium (8.5-10.1) mg/dl POC Ioniz Calcium Solitario (1.12-1.32) mmol/l Phosphorus (2.5-4.9) mg/dl Magnesium (1.8-2.4) mg/dl Total Bilirubin (0.2-1) mg/dl AST (15-37) U/L ALT (12-78) U/L Alkaline Phosphatase (45-117) U/L Total Protein (6.4-8.2) gm/dl Albumin (3.4-5.0) gm/dl Globulin (2.5-4.0) gm/dl Albumin/Globulin Ratio (0.9-2) Lipase (73-393) U/L Urine Color Urine Appearance (Clear) Urine pH (4.5-7.5) POC Urine pH Ur Specific [place] (1.000-1.030) Urine Protein (Negative) POC Urine Protein Urine Glucose (UA) (Negative) POC Ur Glucose (UA) Urine Ketones (Negative) POC Urine Ketones Urine Blood (Negative) POC Urine Blood Urine Nitrite (Negative) POC Urine Nitrite Urine Bilirubin (Negative) POC Urine Bilirubin Urine Urobilinogen (Negative) POC Urine Urobilinogen Ur Leukocyte Esterase (Negative) POC U Leukocyte Esteras 06/26/18 06/25/18 06/25/18 Range/Units 04:35 22:52 19:25 WBC (4.8-10.8) K/uL RBC (4.7-6.1) M/uL Hgb (14.0-18.0) g/dL POC Hgb (14.0-18.0) g/dl Hct (42-52) % POC Hct (42-52) % MCV (80-100) fL MCH (25-34) pg MCHC (32-36) g/dL RDW Std Deviation (36.4-46.3) fL RDW Coeff of Mik (11.5-14.5) % Plt Count (130-400) K/uL MPV (7.4-10.4) fL Immature Gran % (Auto) % Neut % (Auto) % Lymph % (Auto) % [place] % (Auto) % Eos % (Auto) % Baso % (Auto) % Immature Gran # (Auto) (0.00-0.02) K/uL Neut # (Auto) (1.4-6.5) K/uL Lymph # (Auto) (1.2-3.4) K/uL [place] # (Auto) (0.11-0.59) K/uL Eos # (Auto) (0-0.5) K/uL Baso # (Auto) (0-0.2) K/uL PT (9.0-12.0) Seconds INR (0.9-1.1) POC Sodium (135-144) mEq/L Sodium 141 (136-145) mmol/L POC Potassium (3.3-5.0) mEq/L Potassium 3.8 (3.5-5.1) mmol/L POC Chloride (101-112) mEq/L Chloride 106 (98-107) mmol/L Carbon Dioxide 29 (21-32) mmol/L POC Total CO2 (24-31) mEq/l Anion Gap 6.0 (3-11) POC Anion Gap (16-25) mmol/L POC BUN (7-18) mg/dl BUN 21 H (7-18) mg/dl Creatinine 1.13 (0.6-1.4) mg/dl POC Creatinine (0.6-1.3) mg/dl Est Cr Clr Drug Dosing 66.6 ml/min Est GFR ( Amer) 69.8 Est GFR (Non-Af Amer) 60.2 BUN/Creatinine Ratio 18.9 (10-20) Glucose 135 H (70-99) mg/dl POC Glucose 121 H (70-99) POC Glucose (other) (70-99) mg/dl Estimat Average Glucose mg/dl Hemoglobin A1c (4.5-5.6) % Calcium 8.5 (8.5-10.1) mg/dl POC Ioniz Calcium Solitario (1.12-1.32) mmol/l Phosphorus 3.1 (2.5-4.9) mg/dl Magnesium 1.6 L (1.8-2.4) mg/dl Total Bilirubin (0.2-1) mg/dl AST (15-37) U/L ALT (12-78) U/L Alkaline Phosphatase (45-117) U/L Total Protein (6.4-8.2) gm/dl Albumin (3.4-5.0) gm/dl Globulin (2.5-4.0) gm/dl Albumin/Globulin Ratio (0.9-2) Lipase (73-393) U/L Urine Color Urine Appearance (Clear) Urine pH (4.5-7.5) POC Urine pH Cancelled Ur Specific [place] (1.000-1.030) Urine Protein (Negative) POC Urine Protein Cancelled Urine Glucose (UA) (Negative) POC Ur Glucose (UA) Cancelled Urine Ketones (Negative) POC Urine Ketones Cancelled Urine Blood (Negative) POC Urine Blood Cancelled Urine Nitrite (Negative) POC Urine Nitrite Cancelled Urine Bilirubin (Negative) POC Urine Bilirubin Cancelled Urine Urobilinogen (Negative) POC Urine Urobilinogen Cancelled Ur Leukocyte Esterase (Negative) POC U Leukocyte Esteras Cancelled 06/25/18 06/25/18 06/25/18 Range/Units 19:25 17:52 17:47 WBC (4.8-10.8) K/uL RBC (4.7-6.1) M/uL Hgb (14.0-18.0) g/dL POC Hgb 15.6 (14.0-18.0) g/dl Hct (42-52) % POC Hct 46 (42-52) % MCV (80-100) fL MCH (25-34) pg MCHC (32-36) g/dL RDW Std Deviation (36.4-46.3) fL RDW Coeff of Mik (11.5-14.5) % Plt Count (130-400) K/uL MPV (7.4-10.4) fL Immature Gran % (Auto) % Neut % (Auto) % Lymph % (Auto) % [place] % (Auto) % Eos % (Auto) % Baso % (Auto) % Immature Gran # (Auto) (0.00-0.02) K/uL Neut # (Auto) (1.4-6.5) K/uL Lymph # (Auto) (1.2-3.4) K/uL [place] # (Auto) (0.11-0.59) K/uL Eos # (Auto) (0-0.5) K/uL Baso # (Auto) (0-0.2) K/uL PT (9.0-12.0) Seconds INR (0.9-1.1) POC Sodium 139 (135-144) mEq/L Sodium 137 (136-145) mmol/L POC Potassium 4.0 (3.3-5.0) mEq/L Potassium 3.9 (3.5-5.1) mmol/L POC Chloride 99 L (101-112) mEq/L Chloride 102 (98-107) mmol/L Carbon Dioxide 29 (21-32) mmol/L POC Total CO2 26 (24-31) mEq/l Anion Gap 6.0 (3-11) POC Anion Gap 18.0 (16-25) mmol/L POC BUN 21 H (7-18) mg/dl BUN 21 H (7-18) mg/dl Creatinine 1.32 (0.6-1.4) mg/dl POC Creatinine 1.1 (0.6-1.3) mg/dl Est Cr Clr Drug Dosing 51.6 ml/min Est GFR ( Amer) 57.8 Est GFR (Non-Af Amer) 49.9 BUN/Creatinine Ratio 15.7 (10-20) Glucose 160 H (70-99) mg/dl POC Glucose (70-99) POC Glucose (other) 168 H (70-99) mg/dl Estimat Average Glucose mg/dl Hemoglobin A1c (4.5-5.6) % Calcium 9.4 (8.5-10.1) mg/dl POC Ioniz Calcium Solitario 1.17 (1.12-1.32) mmol/l Phosphorus (2.5-4.9) mg/dl Magnesium (1.8-2.4) mg/dl Total Bilirubin 0.9 (0.2-1) mg/dl AST 17 (15-37) U/L ALT 20 (12-78) U/L Alkaline Phosphatase 62 (45-117) U/L Total Protein 8.0 (6.4-8.2) gm/dl Albumin 3.9 (3.4-5.0) gm/dl Globulin 4.1 H (2.5-4.0) gm/dl Albumin/Globulin Ratio 1.0 (0.9-2) Lipase 82 (73-393) U/L Urine Color Yellow Urine Appearance Clear (Clear) Urine pH 7.0 (4.5-7.5) POC Urine pH Ur Specific [place] > 1.045 H (1.000-1.030) Urine Protein Negative (Negative) POC Urine Protein Urine Glucose (UA) Negative (Negative) POC Ur Glucose (UA) Urine Ketones Negative (Negative) POC Urine Ketones Urine Blood Negative (Negative) POC Urine Blood Urine Nitrite Negative (Negative) POC Urine Nitrite Urine Bilirubin Negative (Negative) POC Urine Bilirubin Urine Urobilinogen Negative (Negative) POC Urine Urobilinogen Ur Leukocyte Esterase Negative (Negative) POC U Leukocyte Esteras 06/25/18 06/25/18 Range/Units 17:47 17:47 WBC 11.14 H (4.8-10.8) K/uL RBC 4.53 L (4.7-6.1) M/uL Hgb 15.3 (14.0-18.0) g/dL POC Hgb (14.0-18.0) g/dl Hct 43.9 (42-52) % POC Hct (42-52) % MCV 96.9 (80-100) fL MCH 33.8 (25-34) pg MCHC 34.9 (32-36) g/dL RDW Std Deviation 48.1 H (36.4-46.3) fL RDW Coeff of Mik 13.7 (11.5-14.5) % Plt Count 233 (130-400) K/uL MPV 10.4 (7.4-10.4) fL Immature Gran % (Auto) 0.4 % Neut % (Auto) 78.6 % Lymph % (Auto) 11.3 % [place] % (Auto) 9.2 % Eos % (Auto) 0.4 % Baso % (Auto) 0.1 % Immature Gran # (Auto) 0.04 H (0.00-0.02) K/uL Neut # (Auto) 8.77 H (1.4-6.5) K/uL Lymph # (Auto) 1.26 (1.2-3.4) K/uL [place] # (Auto) 1.02 H (0.11-0.59) K/uL Eos # (Auto) 0.04 (0-0.5) K/uL Baso # (Auto) 0.01 (0-0.2) K/uL PT 10.9 (9.0-12.0) Seconds INR 1.1 (0.9-1.1) POC Sodium (135-144) mEq/L Sodium (136-145) mmol/L POC Potassium (3.3-5.0) mEq/L Potassium (3.5-5.1) mmol/L POC Chloride (101-112) mEq/L Chloride (98-107) mmol/L Carbon Dioxide (21-32) mmol/L POC Total CO2 (24-31) mEq/l Anion Gap (3-11) POC Anion Gap (16-25) mmol/L POC BUN (7-18) mg/dl BUN (7-18) mg/dl Creatinine (0.6-1.4) mg/dl POC Creatinine (0.6-1.3) mg/dl Est Cr Clr Drug Dosing ml/min Est GFR ( Amer) Est GFR (Non-Af Amer) BUN/Creatinine Ratio (10-20) Glucose (70-99) mg/dl POC Glucose (70-99) POC Glucose (other) (70-99) mg/dl Estimat Average Glucose mg/dl Hemoglobin A1c (4.5-5.6) % Calcium (8.5-10.1) mg/dl POC Ioniz Calcium Solitario (1.12-1.32) mmol/l Phosphorus (2.5-4.9) mg/dl Magnesium (1.8-2.4) mg/dl Total Bilirubin (0.2-1) mg/dl AST (15-37) U/L ALT (12-78) U/L Alkaline Phosphatase (45-117) U/L Total Protein (6.4-8.2) gm/dl Albumin (3.4-5.0) gm/dl Globulin (2.5-4.0) gm/dl Albumin/Globulin Ratio (0.9-2) Lipase (73-393) U/L Urine Color Urine Appearance (Clear) Urine pH (4.5-7.5) POC Urine pH Ur Specific [place] (1.000-1.030) Urine Protein (Negative) POC Urine Protein Urine Glucose (UA) (Negative) POC Ur Glucose (UA) Urine Ketones (Negative) POC Urine Ketones Urine Blood (Negative) POC Urine Blood Urine Nitrite (Negative) POC Urine Nitrite Urine Bilirubin (Negative) POC Urine Bilirubin Urine Urobilinogen (Negative) POC Urine Urobilinogen Ur Leukocyte Esterase (Negative) POC U Leukocyte Esteras
[2018-06-26] MEDS ORDERED: POTASSIUM CHLORIDE / WTR 10 MEQ/100 ML PLCT IV SCH (14:15)
--- NOTE | 2018-06-26 15:42 | XRay Report ---
KUB HISTORY: Acute generalized abdominal pain with reported small bowel obstruction Eval for obstruction COMPARISON: CT abdomen and pelvis 06/25/2018 FINDINGS: Mildly dilated air-filled loops of small bowel are again seen about the central abdomen measuring up to 3.4 cm transversely. No pneumatosis or pneumoperitoneum identified. Right nephrolithiasis redemons trated. No definite ureteral calculi. Degenerative changes of the pelvis, hips and spine. IMPRESSION: 1. Persistent air-filled loops of small bowel within the central abdomen are suggestive of ongoing ob struction. 2. No pneumatosis or pneumoperitoneum. 3. Right nephrolithiasis. Electronically signed by: Nils Arana M.D. 06/26/2018 3:41 PM
[2018-06-26] MEDS: POTASSIUM CHLORIDE 20 MEQ in LACTATED RINGER'S 1,000 ML IV SCH (16:28)
[2018-06-26] MEDS: ZOLPIDEM TARTRATE 5 MG TAB PO PRN (21:46)
[2018-06-27] MEDS: INSULIN ASPART 100 UNITS/ML 3 ML PEN SC SCH ×5 (00:15→22:25)
[2018-06-27] MEDS: POTASSIUM CHLORIDE 20 MEQ in LACTATED RINGER'S 1,000 ML IV SCH ×2 (02:59→13:53)
[2018-06-27 06:10] LABS: Hematocrit (blood only) 37.4 % (42-52); Hemoglobin 12.3 g/dL (14.0-18.0); Mean Corpuscular Hgb Conc 32.9 g/dL (32-36); Mean Corpuscular Volume 101.4 fL (80-100); Mean Platelet Volume 10.4 fL (7.4-10.4); Platelet Count 156 K/uL (130-400); RDW Coefficient of Variation 13.7 % (11.5-14.5); RDW Standard Deviation 50.6 fL (36.4-46.3); Red Blood Count 3.69 M/uL (4.7-6.1); White Blood Count 4.76 K/uL (4.8-10.8)
[2018-06-27 06:22] LABS: BUN Creatinine Ratio 21.8 (10-20); Calcium 8.3 mg/dl (8.5-10.1); Creatinine Clr Calc Pharmacy 86.7 ml/min; Est GFR (African American) 93.2; Est GFR (Non-African American) 80.4; Magnesium 1.9 mg/dl (1.8-2.4); Potassium 3.9 mmol/L (3.5-5.1)
[2018-06-27 06:26] LABS: Phosphorus 2.3 mg/dl (2.5-4.9)
[2018-06-27] MEDS ORDERED: POTASSIUM PHOS 3 MMOL/1 ML INFUSION IV STA (08:10)
[2018-06-27] MEDS ORDERED: POTASSIUM PHOSPHATE 15 MMOL in SODIUM CHLORIDE 0.9% 250 ML IV ONE (08:30)
[2018-06-27] MEDS: FUROSEMIDE 10 MG in SYRINGE 0 ML IV SCH (08:36)
[2018-06-27] MEDS: PANTOprazole 40 MG in SYRINGE 0 ML IV SCH (11:24)
--- NOTE | 2018-06-27 13:00 | XRay Report ---
XR KUB/Abdomen 1 view CLINICAL HISTORY: Eval for improvement in obstruction. COMPARISON STUDY: 06/26/2018 FINDINGS: There is a nonspecific bowel gas pattern with mildly dilated small bowel loops measuring up to 4.2 cm in diameter. There are suspected right-sided nephrolithiasis. IMPRESSION: 1. Right-sided nephrolithiasis 2. Slight interval increase in the diameter of the mildly distended small bowel loops. Electronically signed by: Portillo Nuñez M.D. 06/27/2018 12:59 PM
[2018-06-27] MEDS ORDERED: BISACODYL 5 MG TABEC PO ONE (15:14)
[2018-06-27] MEDS ORDERED: BISACODYL 10 MG SUPP PR STA (15:15)
--- NOTE | 2018-06-27 15:27 | Surgery Consultation ---
Date of Consultation June 27, 2018 Assessment & Plan (1) Small bowel obstruction: pt is a 82 year-old male who was admitted to [facility] for SBO, pt is doing better, passed some gas, no stool yet, Plan,agree with conservative treatment, miralax 17g, dulcolax 10 mg po, will F/U History of Present Illness Attending Physician: Frandy Hernandez Toshiaarcadio pt is a 82 year-old male who was admitted to hospital for SBO 2 days ago, pt started abdominal pain with nausea and vomiting 2 days ago, pt had PMH for SBO 6-7 times in the past, every time pt had conservative treatment, pt had open, cholecystectomy and open lower middle line for appendectomy in the past. now pt feels better, passed some gas, no abdominal pain, no nausea, and vomiting in past 2 days, last BM 3 days ago. pt denies fever. Allergies Allergy/AdvReac Type Severity Reaction Status Date / Time No Known Allergies Allergy Verified 06/25/18 17:44 Home Medications Home Medications Medication Instructions Recorded Confirmed Type allopurinol 100 mg PO DAILY 06/25/18 06/25/18 History aspirin 325 mg PO DAILY 06/25/18 06/25/18 History cholecalciferol (vitamin D3) 1,000 unit PO DAILY 06/25/18 06/25/18 History [Vitamin D3] cyanocobalamin (vitamin B-12) 500 mcg PO DAILY 06/25/18 06/25/18 History [Vitamin B-12] finasteride 5 mg PO DAILY 06/25/18 06/25/18 History lovastatin 20 mg PO HS 06/25/18 06/25/18 History metformin 500 mg PO DAILY 06/25/18 06/25/18 History multivitamin 1 tab PO DAILY 06/25/18 06/25/18 History pantoprazole 40 mg PO BID 06/25/18 06/25/18 History saw palmetto 160 mg PO DAILY 06/25/18 06/25/18 History spironolacton-hydrochlorothiaz 1 tab PO DAILY 06/25/18 06/25/18 History tamsulosin 0.4 mg PO DAILY 06/25/18 06/25/18 History zolpidem 5 mg PO HS PRN 06/25/18 06/25/18 History Patient History Medical History Small bowel obstruction (Resolved) BPH (benign prostatic hyperplasia) Congestive heart failure Diabetes mellitus, type 2 GERD (gastroesophageal reflux disease) Hearing deficit Hyperlipidemia Kidney stones Surgical History History of appendectomy S/P cholecystectomy Social History Communication Ability: Effective Beliefs That Will Affect Care: None marital status: Current Living Situation: Alone Other Information That Helps Us Care for You: No Feels Safe at Home: Yes Safety Concerns: Feels Safe At This Time Smoking Status: Former smoker Hx Alcohol Use: Yes Hx Substance Use: No Review of Systems Constitutional: as per Subjective / HPI Ear, Nose, Mouth, Throat: as per Subjective / HPI Respiratory: as per Subjective / HPI Cardiovascular: as per Subjective / HPI Gastrointestinal: as per Subjective / HPI SBO, appendectomy, cholecystectomy Genitourinary (Male): as per Subjective / HPI Musculoskeletal: as per Subjective / HPI Integumentary: as per Subjective / HPI Neurologic: as per Subjective / HPI Psychiatric: as per Subjective / HPI DM Hematologic / Lymphatic: as per Subjective / HPI Physical Exam Vital Signs (Past 24 Hours): Last Vital Signs Temp 36.8 C 06/27/18 07:16 Pulse 55 L 06/27/18 07:16 Resp 16 06/27/18 07:16 BP 96/57 L 06/27/18 07:16 Pulse Ox 91 06/27/18 07:16 Constitutional: WD/WN, vitals as above well developed and well nourished Neck: trachea midline, no thyromegaly Respiratory: normal respiratory effort, lungs clear to auscultation normal respiratory effort Cardiovascular: RRR, no murmur, no edema Rate/Rhythm: regular rate and regular rhythm Heart Sounds: normal S1 and normal S2 Gastrointestinal (Abdomen): normal bowel sounds, soft, nontender, no hepatosplenomegaly Percussion/Palpation: abdomen soft no tenderness, no d istend, BS + Musculoskeletal: no cyanosis or clubbing, extremities motor strength 5/5 Neurologic: awake Psychiatric: Orientation: alert and oriented x 3 Results & Data Laboratory Results Abnormal lab results 06/27/18 06/27/18 06/27/18 Range/Units 05:20 05:20 05:53 WBC 4.76 L (4.8-10.8) K/uL RBC 3.69 L (4.7-6.1) M/uL Hgb 12.3 L D (14.0-18.0) g/dL Hct 37.4 L (42-52) % MCV 101.4 H (80-100) fL RDW Std Deviation 50.6 H (36.4-46.3) fL Chloride 109 H (98-107) mmol/L BUN 19 H (7-18) mg/dl BUN/Creatinine Ratio 21.8 H (10-20) Glucose 105 H (70-99) mg/dl POC Glucose 112 H (70-99) Calcium 8.3 L (8.5-10.1) mg/dl Phosphorus 2.3 L (2.5-4.9) mg/dl 06/27/18 Range/Units 12:07 WBC (4.8-10.8) K/uL RBC (4.7-6.1) M/uL Hgb (14.0-18.0) g/dL Hct (42-52) % MCV (80-100) fL RDW Std Deviation (36.4-46.3) fL Chloride (98-107) mmol/L BUN (7-18) mg/dl BUN/Creatinine Ratio (10-20) Glucose (70-99) mg/dl POC Glucose 111 H (70-99) Calcium (8.5-10.1) mg/dl Phosphorus (2.5-4.9) mg/dl Diagnostic Findings CT abd pelvis IV con only CLINICAL HISTORY: 82 years-old Male presenting with Central abdominal pain since last night. TECHNIQUE: Multidetector CT of the abdomen and pelvis was performed after the administration of intravenous contrast. IV contrast: 96 mL of Optiray 320. One or more dose lowering techniques were used consistent with the principles of ALARA (as low as reasonably achievable), including automatic exposure control, mA or kV adjustment to individual patient size, and/or use of iterative reconstruction. COMPARISON: 04/29/2017. CT DOSE (mGy.cm): The estimated cumulative dose is 1601.39 mGy.cm. FINDINGS: [employer] topogram: Unremarkable. Lung bases: Normal heart size. Coronary artery calcification. Calcified pleural plaques with trace pleural fluid or pleural thickening. Rounded atelectasis in the medial basal left lower lobe. Liver: Normal morphology. Parenchymal calcification may suggest a history of granulomatous disease. No liver lesion. Patent hepatic vasculature. Biliary: Mild biliary ductal prominence likely a reservoir effect in the post cholecystectomy state. Gallbladder surgically absent. Pancreas: Normal. Spleen: Parenchymal calcification suggest a history of granulomatous disease. Adrenal glands: Normal. Kidneys and ureters: Well-defined hypodensity in the right kidney compatible with simple cysts. Exophytic left renal cyst suspected. No hydronephrosis. Renovascular calcification suspected in addition to few punctate nonobstructing right renal calculi. Bladder: Incompletely evaluated secondary to underdistention. Pelvic organs: Prostate enlargement likely secondary to benign prostatic hyperplasia. Bowel: Few diverticula in the distal sigmoid colon without associated inflammatory change. Intramural lipoma noted at the hepatic flexure. The appendix is absent. Feces noted in the small bowel focally in a short segment in the mid abdomen. This appearance is new from prior. This tapers up stream to distended jejunum, which measures up to 4.4 cm in diameter. A focal transition point is suspected in the anterior mid abdomen (series 3 image 245). No focal mass or inflammatory change in this region. This may indicate the presence of underlying adhesions. Trace hiatal hernia. Peritoneal cavity: No free fluid or intraperitoneal gas. Lymph nodes: No enlarged lymph nodes in the abdomen or pelvis. Vasculature: Atherosclerosis of the normal caliber abdominal aorta. IVC patent. Abdominal wall: Postsurgical changes of the midline ventral abdominal wall. Fat- containing inguinal hernia suspected. Musculoskeletal: Degenerative changes of the spine. IMPRESSION: 1. Small bowel obstruction in the anterior mid abdomen likely secondary to adhesions. This is most likely a high-grade partial obstruction. 2. Postsurgical changes of appendectomy. 3. Postsurgical changes of the midline ventral abdominal wall. This may relate to an open appendectomy among other etiologies. 4. Findings suggest prior asbestos exposure. 5. Findings suggest prior granulomatous disease. KUB(06/26/2018) HISTORY: Acute generalized abdominal pain with reported small bowel obstruction Eval for obstruction COMPARISON: CT abdomen and pelvis 06/25/2018 FINDINGS: Mildly dilated air-filled loops of small bowel are again seen about the central abdomen measuring up to 3.4 cm transversely. No pneumatosis or pneumoperitoneum identified. Right nephrolithiasis redemonstrated. No definite ureteral calculi. Degenerative changes of the pelvis, hips and spine. IMPRESSION: 1. Persistent air-filled loops of small bowel within the central abdomen are suggestive of ongoing obstruction. 2. No pneumatosis or pneumoperitoneum. 3. Right nephrolithiasis. XR KUB/Abdomen 1 view (06/27/2018) CLINICAL HISTORY: Eval for improvement in obstruction. COMPARISON STUDY: 06/26/2018 FINDINGS: There is a nonspecific bowel gas pattern with mildly dilated small bowel loops measuring up to 4.2 cm in diameter. There are suspected right-sided nephrolithiasis. IMPRESSION: 1. Right-sided nephrolithiasis 2. Slight interval increase in the diameter of the mildly distended small bowel loops.
--- NOTE | 2018-06-27 15:51 | Hospitalist Progress Note ---
Date of Service June 27, 2018 Assessment & Plan (1) Small bowel obstruction: - Noted on CT of A/P at admission; h/o SBO -- likely related to abdominal adhesions. - Passing flatus, has not had a BM yet. - KUB this morning showed persistent SBO; will repeat imaging on 06/28/18. - No significant N/V noted -- holding NG tube. - Consulted surgery, recommend Dulcolax 10 mg PO, Dulcolax suppository x 1 dose and Miralax scheduled daily. - NPO except meds; IV fluids at 80 cc/hr. (2) Renal stones: - Follows with urology. - Most recent renal US in May 2018 showed small non obstructiing left renal calcification. - Holding Allopurinol 100 mg daily while NPO. (3) Chronic systolic heart failure: - No recent documented TTE to eval for EF. - Holding home Spironolactone/HCTZ. - Started Lasix 10 mg IV daily as pt. is receiving IV fluids due to NPO status. - Monitor daily weights and I/Os - weight is increased ~1.5 kg since admission. (4) Hyperlipidemia: - Holding home statin and aspirin due to NPO status. (5) GERD (gastroesophageal reflux disease): - PPI IV while NPO. (6) DM type 2 (diabetes mellitus, type 2): - Hold home Metformin. - SSI with gluc checks q6hr while NPO. - Hemoglobin A1C was 6.7 -- will need to follow up with PCP. (7) BPH (benign prostatic hyperplasia): - Hold home Finasteride and Flomax while NPO. (8) Electrolyte abnormality: - Mag level 1.9 - did not order additional replacement. - K level 3.9, Phos 2.3 -- ordered K Phos 15 mmol IV. - Maintain K >4.0, Mag >2.0. (9) DVT prophylaxis: - SCDs; hold Lovenox for possible procedure. Dispo: Med/surg for conservative treatment of SBO. Supervising Physician Co-Signing Physician Notes Attending Attestation - Chart reviewed in detail, care plan d/w ADAM Christopher. I agree w/ the tatum components of her documentation. Pt with resolving SBO - continue supportive care. Labs/vitals acceptable. Frandy Cueto MD Subjective Review of Systems All systems reviewed & are unremarkable except as noted in HPI & below Pt. states abd pain is improved, describes pain as a minor discomfort at this point. Is passing gas, no BM yet. KUB showed persistent SBO, no improvement. Surgery was consulted. Constitutional: no fever, no chills, no fatigue, no weakness and no anorexia Respiratory: no cough and no dyspnea Cardiovascular: no chest pain, no palpitations and no edema Gastrointestinal: + abdominal pain, + bloating and + constipation; no nausea, no vomiting and no diarrhea/loose stools Genitouri nary (Male): no dysuria and no difficulty urinating Musculoskeletal: no joint pain Integumentary: no non-healing lesions Allergy / Immunological: no rash Physical Exam Vital Signs (Past 24 Hours): Last Vital Signs Temp 36.8 C 06/27/18 07:16 Pulse 55 L 06/27/18 07:16 Resp 16 06/27/18 07:16 BP 96/57 L 06/27/18 07:16 Pulse Ox 91 06/27/18 07:16 Physical Exam: General: Resting comfortably in no apparent distress; A&OX3 HEENT: NC/AT; PERRLA with EOMI; [place] conjunctiva, MMM. Neck: Supple and nontender Cardiac: RRR w/o murmurs, gallops or rubs Lungs: CTA bilaterally; No rhonchi, wheezing, or rales Abdomen: Bowel normoactive X 4; Tenderness over lower abdomen. Extremities: Warm. No edema present Neuro: No focal weakness Skin: No rash Results & Data Laboratory Results 06/27/18 06/27/18 06/27/18 Range/Units 12:07 05:53 05:20 WBC (4.8-10.8) K/uL RBC (4.7-6.1) M/uL Hgb (14.0-18.0) g/dL Hct (42-52) % MCV (80-100) fL MCH (25-34) pg MCHC (32-36) g/dL RDW Std Deviation (36.4-46.3) fL RDW Coeff of Mik (11.5-14.5) % Plt Count (130-400) K/uL MPV (7.4-10.4) fL Sodium 141 (136-145) mmol/L Potassium 3.9 (3.5-5.1) mmol/L Chloride 109 H (98-107) mmol/L Carbon Dioxide 28 (21-32) mmol/L Anion Gap 4.0 (3-11) BUN 19 H (7-18) mg/dl Creatinine 0.87 (0.6-1.4) mg/dl Est Cr Clr Drug Dosing 86.7 ml/min Est GFR ( Amer) 93.2 Est GFR (Non-Af Amer) 80.4 BUN/Creatinine Ratio 21.8 H (10-20) Glucose 105 H (70-99) mg/dl POC Glucose 111 H 112 H (70-99) Calcium 8.3 L (8.5-10.1) mg/dl Phosphorus 2.3 L (2.5-4.9) mg/dl Magnesium 1.9 (1.8-2.4) mg/dl 06/27/18 06/26/18 06/26/18 Range/Units 05:20 23:58 18:20 WBC 4.76 L (4.8-10.8) K/uL RBC 3.69 L (4.7-6.1) M/uL Hgb 12.3 L D (14.0-18.0) g/dL Hct 37.4 L (42-52) % MCV 101.4 H (80-100) fL MCH 33.3 (25-34) pg MCHC 32.9 (32-36) g/dL RDW Std Deviation 50.6 H (36.4-46.3) fL RDW Coeff of Mik 13.7 (11.5-14.5) % Plt Count 156 (130-400) K/uL MPV 10.4 (7.4-10.4) fL Sodium (136-145) mmol/L Potassium (3.5-5.1) mmol/L Chloride (98-107) mmol/L Carbon Dioxide (21-32) mmol/L Anion Gap (3-11) BUN (7-18) mg/dl Creatinine (0.6-1.4) mg/dl Est Cr Clr Drug Dosing ml/min Est GFR ( Amer) Est GFR (Non-Af Amer) BUN/Creatinine Ratio (10-20) Glucose (70-99) mg/dl POC Glucose 96 89 (70-99) Calcium (8.5-10.1) mg/dl Phosphorus (2.5-4.9) mg/dl Magnesium (1.8-2.4) mg/dl
[2018-06-27] MEDS ORDERED: Nursing to Pharmacy Communication ONE (16:10)
[2018-06-27] MEDS: POLYETHYLENE (MIRALAX) 17 GM PACK PO SCH (16:25)
[2018-06-27] MEDS: ZOLPIDEM TARTRATE 5 MG TAB PO PRN (22:02)
[2018-06-28] MEDS: POTASSIUM CHLORIDE 20 MEQ in LACTATED RINGER'S 1,000 ML IV SCH (02:13)
[2018-06-28 06:13] LABS: Hematocrit (blood only) 35.9 % (42-52); Mean Corpuscular Hgb Conc 33.4 g/dL (32-36); Mean Corpuscular Volume 100.6 fL (80-100); Mean Platelet Volume 10.2 fL (7.4-10.4); Platelet Count 150 K/uL (130-400); RDW Coefficient of Variation 13.4 % (11.5-14.5); RDW Standard Deviation 48.8 fL (36.4-46.3); Red Blood Count 3.57 M/uL (4.7-6.1); White Blood Count 3.97 K/uL (4.8-10.8)
[2018-06-28 06:29] LABS: Calcium 8.3 mg/dl (8.5-10.1); Creatinine Clr Calc Pharmacy 96.9 ml/min; Est GFR (African American) 97.4; Est GFR (Non-African American) 84.1; Magnesium 1.7 mg/dl (1.8-2.4); Potassium 3.9 mmol/L (3.5-5.1)
[2018-06-28] MEDS ORDERED: MAGNESIUM OXIDE 400 MG TAB PO ONE (07:47)
[2018-06-28] MEDS ORDERED: MAGNESIUM SULFATE / D5W 1 GM/100 ML BAG IV SCH (08:00)
--- NOTE | 2018-06-28 08:09 | XRay Report ---
KUB CLINICAL HISTORY: Small bowel obstruction. FINDINGS: 2 AP supine abdominal radiographs are compared to study dated 06/27/2018 correlated with abdo ugo CT dated 06/25/2018. There is persistent gaseous distention of the small bowel loops consistent w ith small bowel obstruction. This is similar to yesterday. There is increasing gas throughout the col on. No evidence of intraperitoneal free air is seen on these supine images. There are no abnormal abd ominal calcifications. The skeletal structures are osteopenic. The bony structures are grossly intact . IMPRESSION: 1. There is evidence of persistent low-grade/partial small bowel obstruction. 2. Increasing gas is noted throughout the colon. Electronically signed by: Kareem Bolden M.D. 06/28/2018 8:07 AM
[2018-06-28] MEDS: POLYETHYLENE (MIRALAX) 17 GM PACK PO SCH (08:39)
[2018-06-28] MEDS: INSULIN ASPART 100 UNITS/ML 3 ML PEN SC SCH ×2 (08:40→12:52)
[2018-06-28] MEDS ORDERED: ALLOPURINOL 100 MG TAB PO SCH (09:00)
[2018-06-28] MEDS ORDERED: ASPIRIN 325 MG ECTAB PO SCH (09:00)
[2018-06-28] MEDS ORDERED: FINASTERIDE 5 MG TAB PO SCH (09:00)
[2018-06-28] MEDS ORDERED: SPIRONOLACTONE/HCTZ 25-25 PO SCH (09:00)
--- NOTE | 2018-06-28 12:26 | Surgery Progress Note ---
Date of Service June 28, 2018 Assessment & Plan (1) Small bowel obstruction: 82 year-old male who was admitted to hospital for SBO, with history of recurrent SBO (6-7 in past) treated conservatively. - vitals stable, afebrile - + bowel function - KUB showing persistent low grade/partial SBO however increasing gas in throughout colon - abdomen is soft, nondistended, nontender Plan: Although patient's KUB showing persistent SBO, patient is having no abdominal pain, no n/v, tolerating advanced diet (slowly), no distention and having positive bowel function. Okay from surgical standpoint for discharge this afternoon if tolerates lunch Given his recurrent SBO, he should be on bowel regimen at home (stool softener at least daily, Miralax as needed) Dr. Londono has seen pt, agrees with above. Subjective feeling good no abdominal pain had bowel movement yesterday evening prior to suppository and then has had about 5 bowel movements, mostly liquid no nausea or vomiting tolerated clears last night and full liquids for breakfast ready to go home Physical Exam Vital Signs (Past 24 Hours): Last Vital Signs Temp 37.0 C 06/28/18 06:56 Pulse 49 L 06/28/18 06:56 Resp 18 06/28/18 06:56 BP 123/71 06/28/18 06:56 Pulse Ox 95 06/28/18 06:56 Constitutional: WD/WN, vitals as above no acute distress and not ill appearing Respiratory: normal respiratory effort; no respiratory distress Gastrointestinal (Abdomen): Inspection/Auscultation: abdomen not distended Percussion/Palpation: abdomen soft; abdomen nontender, no guarding and abdomen not rigid Skin: no rashes, warm and dry Psychiatric: A+Ox3, euthymic affect Results & Data Laboratory Results 06/28/18 06/28/18 06/28/18 Range/Units 08:22 05:54 05:54 WBC (4.8-10.8) K/uL RBC (4.7-6.1) M/uL Hgb (14.0-18.0) g/dL Hct (42-52) % MCV (80-100) fL MCH (25-34) pg MCHC (32-36) g/dL RDW Std Deviation (36.4-46.3) fL RDW Coeff of Mik (11.5-14.5) % Plt Count (130-400) K/uL MPV (7.4-10.4) fL Sodium 142 (136-145) mmol/L Potassium 3.9 (3.5-5.1) mmol/L Chloride 111 H (98-107) mmol/L Carbon Dioxide 26 (21-32) mmol/L Anion Gap 5.0 (3-11) BUN 16 (7-18) mg/dl Creatinine 0.78 (0.6-1.4) mg/dl Est Cr Clr Drug Dosing 96.9 ml/min Est GFR ( Amer) 97.4 Est GFR (Non-Af Amer) 84.1 BUN/Creatinine Ratio 20.0 (10-20) Glucose 105 H (70-99) mg/dl POC Glucose 117 H (70-99) Calcium 8.3 L (8.5-10.1) mg/dl Phosphorus 2.3 L (2.5-4.9) mg/dl Magnesium 1.7 L (1.8-2.4) mg/dl 06/28/18 06/27/18 06/27/18 Range/Units 05:54 20:34 17:08 WBC 3.97 L (4.8-10.8) K/uL RBC 3.57 L (4.7-6.1) M/uL Hgb 12.0 L (14.0-18.0) g/dL Hct 35.9 L (42-52) % MCV 100.6 H (80-100) fL MCH 33.6 (25-34) pg MCHC 33.4 (32-36) g/dL RDW Std Deviation 48.8 H (36.4-46.3) fL RDW Coeff of Mik 13.4 (11.5-14.5) % Plt Count 150 (130-400) K/uL MPV 10.2 (7.4-10.4) fL Sodium (136-145) mmol/L Potassium (3.5-5.1) mmol/L Chloride (98-107) mmol/L Carbon Dioxide (21-32) mmol/L Anion Gap (3-11) BUN (7-18) mg/dl Creatinine (0.6-1.4) mg/dl Est Cr Clr Drug Dosing ml/min Est GFR ( Amer) Est GFR (Non-Af Amer) BUN/Creatinine Ratio (10-20) Glucose (70-99) mg/dl POC Glucose 90 112 H (70-99) Calcium (8.5-10.1) mg/dl Phosphorus (2.5-4.9) mg/dl Magnesium (1.8-2.4) mg/dl Diagnostic Findings KUB CLINICAL HISTORY: Small bowel obstruction. FINDINGS: 2 AP supine abdominal radiographs are compared to study dated 06/27/[address] dated 06/25/2018. There is persistent gaseous distention of the small bowel loops consistent with small bowel obstruction. This is similar to yesterday. There is increasing gas throughout the colon. No evidence of intraperitoneal free air is seen on these supine images. There are no abnormal abdominal calcifications. The skeletal structures are osteopenic. The bony structures are grossly intact. IMPRESSION: 1. There is evidence of persistent low-grade/partial small bowel obstruction. 2. Increasing gas is noted throughout the colon.
[2018-06-28] MEDS ORDERED: POT PHOSPHATE MONOBASIC W/ SOD TAB PO ONE (13:46)
--- NOTE | 2018-06-28 14:59 | Discharge Summary ---
Date of Service June 28, 2018 Admission HPI Per Admitting Provider 82 y/o M c/o abd pain. Pt states he started to have abd pain and distention yesterday. Abd pain is in the middle of his abd. He developed n/v as well. He was initially throwing up food, however his emesis today has been all liquid. Last emesis was about 3 hours ago. Last bowel movement was last night around 8p. Last PO was also around 8p last night. Pt denies fever, SOB, chest pain, LE pain or swelling. Pt has hx of SBO, he states 6-7 times. He states this happens about every 1-1.5 years. He has had what he describes as a small bowel follow through and "nothing has ever been found". They are believed to be due to adhesions from prior surgeries. Every episode has resolved with conservative management. Pt states that this is very similar to his prior SBO episodes. Pt was given IVF in the ED. No NGT placed. He states he is feeling his abd pain and distention are already improved. Admission Exam Per Admitting Provider Constitutional: WD/WN, vitals as above Eyes: normal visual stephens by confrontation and + anicteric sclerae Neck: normal visual inspection and trachea midline Respiratory: normal respiratory effort, lungs clear to auscultation Cardiovascular: Rate/Rhythm: regular rate and regular rhythm Gastrointestinal (Abdomen): Inspection/Auscultation: + abdomen distended and normal bowel sounds Percussion/Palpation: + abdomen tender (umbilical) and abdomen soft Musculoskeletal: Head/Neck/Chest: normocephalic and head atraumatic negative for edema, peripheral pulses intact Skin: no rashes, warm and dry Neurologic: awake; not confused Speech / Cognition: normal speech Psychiatric: A+Ox3, euthymic affect Principal Diagnosis Small Bowel Obstruction Discharge Exam General: Resting comfortably in no apparent distress; A&OX3 HEENT: NC/AT; PERRLA with EOMI; [place] conjunctiva, MMM. Neck: Supple and nontender Cardiac: RRR w/o murmurs, gallops or rubs Lungs: CTA bilaterally; No rhonchi, wheezing, or rales Abdomen: Bowel normoactive X 4; Nontender to light palpation. Extremities: Warm. No edema present Neuro: No focal weakness Skin: No rash Discharge Data Allergies Allergy/AdvReac Type Severity Reaction Status Date / Time No Known Allergies Allergy Verified 06/25/18 17:44 Consultations 06/25/18 18:29 ED Decision to Admit Stat 06/27/18 13:17 Consult General Surgery Routine Ordered Studies 06/25/18 17:36 CT abd pelvis IV con only Stat KUB 06/26, 06/27 and 06/28 Hospital Course (1) Small bowel obstruction: Noted on CT of A/P at admission; h/o SBO -- likely related to abdominal adhesions. NPO at admission, on IV fluids. NG tube was held as patient did not have significant N/V. PO meds were also held. KUB on 06/26 and 06/27 showed ongoing obstruction. Surgery was consulted on 06/27 due to lack of improvement. He received Dulcolax PO and [place] and Miralax - pt. had multiple BMs following meds. He was advanced to CLD then full liquid diet. He was tolerating diet on day of discharge and having multiple BMs. He was instructed to advance diet very slowly at discharge. (2) Renal stones: Follows with urology. Most recent renal US in May 2018 showed small non obstructiing left renal calcification. Continued allopurinol. (3) Chronic systolic heart failure: No recent documented TTE to eval for EF. Home Spironolactone/HCTZ held at admission due to being NPO, started Lasix 10 mg IV daily. Home med was resumed prior to discharge. (4) Hyperlipidemia: Resumed home statin/aspirin after patient was tolerating PO meds. (5) GERD (gastroesophageal reflux disease): PPI IV while inpt. Resumed PPO PO BID at discharge. (6) DM type 2 (diabetes mellitus, type 2): Held home Metformin. SSI was ordered. Hemoglobin A1C was 6.7. Will resume oral med at discharge. (7) BPH (benign prostatic hyperplasia): Held home Finasteride and Flomax while NPO. (8) Electrolyte abnormality: Mag, Phos and K were replaced as needed. Will take Mag 400 mg daily x 7 days and KPhos neutral 2 tabs daily for 7 days following discharge. (9) DVT prophylaxis: SCDs. Stable for discharge to home on 06/28/18. Will need to follow up with PCP. Total Time Total Time Spent Total Time Spent (In Minutes): >30 minutes Total Time Includes: Examination of the Patient, Discharge Planning, Medication Reconciliation, Communication With Other Providers and Other Discharge Plan Discharge Items Patient Disposition: Home - Self-Care Reason For Visit: SBO Discharge Diagnosis: Small Bowel Obstruction Condition: Good Discharge Goals: Decrease discomfort, Improve disease control, Improve function, Increase independence, Improve nutritional status and Prevent disease Activity: As commented below Exercise/Sports: Gradually increase as tolerated Non-emergency contact: Primary Care Provider Call non-emergency contact if: you have any medication questions, your symptoms worsen, your pain is not controlled, your pain is worsening, your pain is unusual for you, your pain is concerning for you and you have a fever Follow-up/Referrals: Indio Foster [Primary Care Provider] - (Please, follow up with Dr. Foster. The nurse from this office is supposed to call you with the appointment details. *If you have any questions, call the office at [phone].) Diet: Full liquid Diet Comment: Advance diet very slowly over the next 5-7 days. Addtl Provider Instructions: 1. Small Bowel Obstruction * Please continue a full liquid diet following discharge. You may advance diet very slowly at home over the next 5-7 days. * Please continue a bowel regimen to prevent constipation -- Colace 100 mg twice daily scheduled with Miralax as needed (both over the counter) * Please follow up with your primary care provider in 1-2 weeks to discus this hospital admission. * Please call your primary care provider if you develop recurrent severe abdominal pain, constipation or diarrhea, nausea or vomiting. 2. Electrolyte Abnormalities * Please take Magnesium 400 mg daily over the next 7 days due to persistently low magnesium levels. * Please take K-Phos neutral tablets (1 tablet twice daily) over the next 7 days due to persistently low potassium and phosphorus levels. * Prescriptions for medications were sent to your pharmacy; they may not be covered by your insurance -- these meds can be purchased over the counter. Prescriptions: New docusate sodium [Colace] 100 mg capsule 100 mg PO BID Qty: 1 RF: 0 polyethylene glycol 3350 [Miralax] 17 gram powder in packet 17 gm PO DAILY Qty: 1 RF: 0 magnesium 200 mg tablet 400 mg PO DAILY Qty: 14 RF: 0 Phospha 250 Neutral 250 mg tablet 1 tab PO BID Qty: 14 RF: 0 Continued metformin 500 mg tablet 500 mg PO DAILY RF: 0 spironolacton-hydrochlorothiaz 25-25 mg tablet 1 tab PO DAILY RF: 0 allopurinol 100 mg tablet 100 mg PO DAILY RF: 0 pantoprazole 40 mg tablet,delayed release (DR/EC) 40 mg PO BID RF: 0 zolpidem 5 mg tablet 5 mg PO HS PRN (Reason: Sleep) RF: 0 lovastatin 20 mg tablet 20 mg PO HS RF: 0 finasteride 5 mg tablet 5 mg PO DAILY RF: 0 multivitamin Tablet 1 tab PO DAILY RF: 0 aspirin 325 mg Tablet 325 mg PO DAILY RF: 0 cyanocobalamin (vitamin B-12) [Vitamin B-12] 500 mcg Tablet 500 mcg PO DAILY RF: 0 tamsulosin 0.4 mg Capsule 0.4 mg PO DAILY RF: 0 saw palmetto 160 mg Capsule 160 mg PO DAILY RF: 0 cholecalciferol (vitamin D3) [Vitamin D3] 1,000 unit Capsule 1,000 unit PO DAILY RF: 0 Stand-Alone Forms: [facility] Discharge Orders: Discharge Order (Routine); Ordered 06/28/18 Ordered By: Angy Christopher Admission Data Admit Date/Time: 06/25/18 18:45 Attending Provider: Frandy Cueto Admit Provider: Danica Smith Primary Care Provider: Indio Foster Other Providers: Danica Smith ; Kannan Londono Service: Medical Other Interventions: Discharge Summary Assessment (RN) Last Done: 06/28/18 14:16 Pending Studies at Discharge: No DC Date/Time DO NOT enter until pt leaves facility: 06/28/18 14:56 Supervising Physician Co-Signing Physician Notes Attending Attestation & Discharge Note: Pt seen/examined, chart reviewed, discharge care plan d/w ADAM Christopher. I agree w/ the tatum components of her discharge summary. 82yo male who presented with SBO likely due to adhesions. Seen by general surgery -- conservative measures employed. SBO resolved with passage of flatus and was tolerating PO prior to discharge. Discharge examination: gen- obese, NAD neck - no JVD mouth - MMM heart - RRR, s1, s2, no murmur lungs - CTA b/l abd - minimal distension, BS+, NT, no hsm ext - no edema Low fiber diet recommended for 1-2 weeks post-discharge. Frandy Cueto MD
[2018-06-28] MEDS ORDERED: LOVASTATIN 20 MG TAB PO SCH (17:00)
[2018-06-28] MEDS ORDERED: TAMSULOSIN HCL 0.4 MG CAP PO SCH (21:00)
[2018-06-29] MEDS ORDERED: PANTOprazole 40 MG TAB PO SCH (09:00)
== END 2018-06-28 14:56 | disposition home or self-care (01) | DRG 389 ==
LOC: ED 17:24 → SUATTDRO 18:45 → 3E 18:45
DX: E11.9 Type 2 diabetes mellitus without complications; Z79.82 Long term (current) use of aspirin; E78.5 Hyperlipidemia, unspecified; E87.8 Other disorders of electrolyte and fluid balance, not elsewhere classified; N40.0 Benign prostatic hyperplasia without lower urinary tract symptoms; K21.9 Gastro-esophageal reflux disease without esophagitis; Z87.891 Personal history of nicotine dependence; N20.0 Calculus of kidney; K56.609 Unspecified intestinal obstruction, unspecified as to partial versus complete obstruction; Z90.49 Acquired absence of other specified parts of digestive tract; Z79.84 Long term (current) use of oral hypoglycemic drugs; I50.22 Chronic systolic (congestive) heart failure

== ENCOUNTER 2021-02-07 16:57 | Inpatient (IN) ==
--- NOTE | 2021-02-07 17:58 | XRay Report ---
XR chest 2V PA/lateral CLINICAL HISTORY: Cough, dyspnea, weakness TECHNIQUE: AP and lateral frontal radiograph of the chest was obtained. Comparison: Comparison is made to chest 2 views 12/19/2019 FINDINGS: No lines and tubes are seen. Calcified aortic knob is seen. Right lower lung airspace opacity noted. No evidence of pleural effusion or pneumothorax. IMPRESSION: Right lower lung airspace opacity. This may represent atelectasis, pneumonia, and/or aspiration. ACT 112: Negative or not required by law. Electronically signed by: Cordell Mcdonald M.D. 02/07/2021 5:56 PM
[2021-02-07] MEDS ORDERED: ACETAMINOPHEN 1,000 MG/100 ML VIAL IV STA (18:51)
[2021-02-07] MEDS ORDERED: ONDANSETRON INJ 2 MG/ML 2 ML VIAL IV STA (18:51)
[2021-02-07] MEDS ORDERED: SODIUM CHLORIDE 0.9% 1000ML 500 ML IV ONE (18:53)
[2021-02-07] MEDS ORDERED: SODIUM CHLORIDE 0.9% 1000ML 1,000 ML IV STA ×2 (18:53→22:23)
[2021-02-07 19:12] LABS: Appearance Urine Clear (Clear); Bacteria Urine Automated Negative (Negative); Bilirubin Urine Negative (Negative); Blood Urine 2+ (Negative); Color Urine Dark Yellow; Glucose Urine UA Negative (Negative); Ketones Urine Trace (Negative); Leukocyte Esterase Urine Negative (Negative); Nitrite Urine Negative (Negative); Protein Urine 2+ (Negative); Specific Gravity Urine 1.024 (1.000-1.030); Urobilinogen Urine Negative (Negative)
[2021-02-07 19:21] LABS: Alanine Aminotransferase 55 U/L (12-78); Albumin Level 3.1 gm/dl (3.4-5.0); Aspartate Aminotransferase 130 U/L (15-37); BUN Creatinine Ratio 15.2 (10-20); Blood Urea Nitrogen 22 mg/dl (7-18); Calcium 8.9 mg/dl (8.5-10.1); Carbon Dioxide 28 mmol/L (21-32); Chloride 99 mmol/L (98-107); Est GFR (African American) 50.5 ml/min; Est GFR (Non-African American) 43.6 ml/min; Glucose 139 mg/dl (70-99); Potassium 4.1 mmol/L (3.5-5.1); Sodium 131 mmol/L (136-145)
[2021-02-07 19:22] LABS: Basophils # (auto) 0.01 K/uL (0-0.2); Basophils % (auto) 0.3 %; Eosinophils # (auto) 0.01 K/uL (0-0.5); Eosinophils % (auto) 0.3 %; Hematocrit (blood only) 38.1 % (42-52); Hemoglobin 12.8 g/dL (14.0-18.0); Immature Granulocytes # (auto) 0.01 K/uL (0.00-0.02); Immature Granulocytes % (auto) 0.3 %; Lymphocytes # (auto) 0.73 K/uL (1.2-3.4); Lymphocytes % (auto) 19.9 %; Mean Corpuscular Hemoglobin 32.4 pg (25-34); Mean Corpuscular Hgb Conc 33.6 g/dL (32-36); Mean Corpuscular Volume 96.5 fL (80-100); Mean Platelet Volume 9.7 fL (7.4-10.4); Monocytes # (auto) 0.72 K/uL (0.11-0.59); Monocytes % (auto) 19.7 %; Neutrophils # (auto) 2.18 K/uL (1.4-6.5); Neutrophils % (auto) 59.5 %; Platelet Count 99 K/uL (130-400); Platelet Estimate Decreased (Normal); RDW Coefficient of Variation 13.9 % (11.5-14.5); RDW Standard Deviation 49.3 fL (36.4-46.3); Red Blood Count 3.95 M/uL (4.7-6.1); White Blood Count 3.66 K/uL (4.8-10.8)
[2021-02-07 19:24] LABS: Albumin Globulin Ratio 0.8 (0.9-2); Alkaline Phosphatase 48 U/L (45-117); Bilirubin,Total 0.6 mg/dl (0.2-1); Globulin 4.1 gm/dl (2.5-4.0); Total Protein 7.2 gm/dl (6.4-8.2)
--- NOTE | 2021-02-07 19:28 | Emergency Department Note ---
Impression & Plan COVID-19, Fever, Abdominal pain ED Provider Note INFORMANT: Patient and daughter ED PROVIDER(S): Arpit Marks MD CHIEF COMPLAINT: Abdominal pain PLAN: Disposition: Admitted Condition: Good Outpatient prescription management: none Referral: None MEDICAL DECISION MAKING: Patient presented because of GI complaints. He had a fever. There was some concern due to his travel and patient was tested for Covid. His imaging did not reveal any evidence of obstruction however there were findings concerning for viral pneumonia. The patient's blood work showed suppression of his CBC and chemistry panel was rather unremarkable. The patient's Lyme and anaplasmosis testing were negative. The patient did have a positive Covid test. He did develop some mild hypoxia. He responded well to supplemental oxygen. The patient was given IV Decadron. He will need further management in the hospital. I did have a discussion with the patient and his daughter. I did advise the daughter to quarantine and to get tested if she develops any symptoms. I gave my usual and customary discussion regarding this issue. Consultation was made with Dr. Jean Brenner of the [facility] service. Patient was evaluated in the ER for further management. Triage Nursing notes reviewed and agree them. Vital Signs: reviewed and remarkable for fever Differential diagnosis: Etiologies such as bowel obstruction,gastroenteritis, food borne illness, infections, appendicitis, diverticulitis, inflammatory bowel disease, GI bleed, biliary pathology, COVID-19, infectious diarrhea, as well as others were entertained. Diagnostics interpreted by me: EC Lead ECG performed and revealed Normal sinus rhythym at 99, normal Ray. No elevation or depression. No PACs or PVCs. Left anterior fascicular block. Cardiac Monitoring: Cardiac monitoring ordered by me: The patient was placed on continuous cardiac monitoring and observed. It revealed a normal sinus rhythm at 98 beats per minute without ectopy or evidence of dysrhythmia. Imaging studies: Chest x-ray reveals findings consistent with viral pneumonia. CT scan of the abdomen pelvis reveals no evidence of acute intra-abdominal pathology. Bilateral bases concerning for infiltrative change. I refer you to the EMR for further details. HPI: The patient is a 85 year old male who presents to the Emergency Room with complaints of abdominal pain. This started 2 days ago and is worsening. The patient also notes the following associated symptoms, diarrhea, nausea, fever, nasal congestion. The patient has used Imodium forrelieving factors. Current pain is rated as 5/10. Patient states that he did travel out of the country 10 days ago. He has a history of small bowel obstruction and was concerned for the same. Pt denies LOC, headache, chills, diaphoresis, visual changes, neck pain, chest pain, breathing difficulties, vomiting, back pain, melena, hematochezia, urinary symptoms, numbness, weakness, lymphadenopathy, rash, or other complaints. ROS: See above HPI for pertinent positives & negatives. A total of 10 systems reviewed and were otherwise negative. PAST MEDICAL HISTORY:See Below , SBO, diabetes PAST SURGICAL HISTORY:See Below, FAMILY HISTORY:See Below SOCIAL HISTORY:See Below, retired HOME MEDICATIONS:See Below ALLERGIES:See Below VITALS:See Below PHYSICAL EXAMINATION: GENERAL: Awake, alert, mildly ill-appearing, in no distress HENT: Normocephalic, atraumatic. Oropharynx unremarkable. EYES: Normal conjunctiva. Sclera non-icteric. NECK: Inspection normal. Non-tender. Supple. No nuchal rigidity. FROM. No masses. RESPIRATORY: Clear to auscultation. No wheezes. No rales. Normal respiratory effort. CARDIAC: Borderline tachycardic rate. Normal rhythm. No murmurs. No rubs. Extremities warm and well perfused. Pulses equal. No JVD. GI: Soft, non-distended. No tenderness to palpation. No rebound or guarding. No masses. RECTAL: Deferred. MUSCULOSKELETAL: Atraumatic. Chest examination reveals no tenderness. The back is symmetrical on inspection without obvious abnormality. There is no CVA tenderness to palpation. No joint edema. LOWER EXTREMITIES: Calves are equal size bilaterally and non-tender. No edema. No discoloration. NEURO: Normal sensorium. No sensory or motor deficits noted. SKIN: Flushed. No rash or jaundice noted. Arpit Marks MD Past Med/Surg History Medical History BPH (benign prostatic hyperplasia) Diabetes mellitus, type 2 Emphysema of lung GERD (gastroesophageal reflux disease) Hearing deficit Hyperlipidemia Kidney stones Small bowel obstruction Surgical History History of appendectomy Hx of lithotripsy S/P cholecystectomy Family History Mother Diabetes Breast cancer Father Prostate cancer Denies family history of Myocardial infarction Stroke Social History Smoking Status: Never smoker Second Hand Exposure: No; Hx Alcohol Use: Yes Alcohol type: wine Hx Substance Use: No Preferred Language: Macedonian Communication Ability: Effective 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 Beliefs That Will Affect Care: None marital status: Current Living Situation: Alone Feels Safe at Home: Yes Assistive Devices: Glasses and Hearing Aid - Bilateral Allergies Allergies Allergy/AdvReac Type Severity Reaction Status Date / Time No Known Allergies Allergy Verified 02/07/21 19:29 Home Meds Home Medications Medication Instructions Recorded Confirmed allopurinol 100 mg tablet 100 mg PO HS 06/25/18 02/07/21 aspirin 325 mg tablet 325 mg PO HS 06/25/18 02/07/21 cholecalciferol (vitamin D3) 25 1,000 unit PO HS 06/25/18 02/07/21 mcg (1,000 unit) capsule (Vitamin D3) cyanocobalamin (vitamin B-12) 500 500 mcg PO HS 06/25/18 02/07/21 mcg tablet (Vitamin B-12) lovastatin 20 mg tablet 20 mg PO HS 06/25/18 02/07/21 metformin 500 mg tablet 500 mg PO HS 06/25/18 02/07/21 multivitamin 1 tab PO HS 06/25/18 02/07/21 pantoprazole 40 mg tablet,delayed 40 mg PO BID 06/25/18 02/07/21 release spironolactone 25 1 tab PO HS 06/25/18 02/07/21 mg-hydrochlorothiazide 25 mg tablet zolpidem 5 mg tablet 5 mg PO HS PRN 06/25/18 02/07/21 thiamine HCl (vitamin B1) 25 mg 25 mg PO HS 12/18/19 02/07/21 tablet finasteride 5 mg tablet 5 mg PO DAILY 02/07/21 02/07/21 Previous Rx's Medication Instructions Recorded docusate sodium 100 mg capsule 100 mg PO BID #1 cap 06/28/18 (Colace) sildenafil (pulm.hypertension) 20 100 mg PO ONCE PRN #30 tab 06/03/20 mg tablet Results & Data (ED) Vital Signs Vital Signs - 24 hr 02/07/21 17:11 02/07/21 19:02 02/07/21 20:30 Temperature 38.2 C H Temperature Source Temporal Artery Scan Pulse Rate 109 H 98 H Pulse Rate [Left] 103 H Pulse Rate from SpO2 Sensor 97 H Pulse Rhythm [Left] Regular Pulse Strength [Left] Normal Respiratory Rate 20 20 24 Respiratory Effort / Characteristics Non-Labored Spontaneous Non-Labored Respiratory Depth Normal Normal Respiratory Pattern Regular Blood Pressure 123/66 135/62 Blood Pressure [Left Arm] 136/73 Blood Pressure Mean 85 86 Blood Pressure Mean [Left Arm] 94 Blood Pressure Position [Left Arm] Sitting Pulse Oximetry 94 94 93 Oxygen Delivery Method Room Air Room Air Oxygen Flow Rate Sepsis Recent Fever Within 48 Hours No Sepsis New/Unexplained Change in Mental Status No Sepsis Action Taken by Nursing No Action Required 02/07/21 21:33 02/07/21 21:34 Temperature 37.1 C Temperature Source Oral Pulse Rate Pulse Rate [Left] Pulse Rate from SpO2 Sensor Pulse Rhythm [Left] Pulse Strength [Left] Respiratory Rate Respiratory Effort / Characteristics Respiratory Depth Respiratory Pattern Blood Pressure Blood Pressure [Left Arm] Blood Pressure Mean Blood Pressure Mean [Left Arm] Blood Pressure Position [Left Arm] Pulse Oximetry 89 L 96 Oxygen Delivery Method Room Air Nasal Cannula Oxygen Flow Rate 2 Sepsis Recent Fever Within 48 Hours Sepsis New/Unexplained Change in Mental Status Sepsis Action Taken by Nursing Laboratory Data Result diagrams: 02/07/21 18:55 02/07/21 18:55 Lab Results 02/07/21 02/07/21 02/07/21 Range/Units 18:48 18:55 18:55 WBC 3.66 L (4.8-10.8) K/uL RBC 3.95 L (4.7-6.1) M/uL Hgb 12.8 L (14.0-18.0) g/dL Hct 38.1 L (42-52) % MCV 96.5 (80-100) fL MCH 32.4 (25-34) pg MCHC 33.6 (32-36) g/dL RDW Std Deviation 49.3 H (36.4-46.3) fL RDW Coeff of Mik 13.9 (11.5-14.5) % Plt Count 99 L (130-400) K/uL MPV 9.7 (7.4-10.4) fL Immature Gran % (Auto) 0.3 % Neut % (Auto) 59.5 % Lymph % (Auto) 19.9 % [place] % (Auto) 19.7 % Eos % (Auto) 0.3 % Baso % (Auto) 0.3 % Neut # (Auto) 2.18 (1.4-6.5) K/uL Lymph # (Auto) 0.73 L (1.2-3.4) K/uL [place] # (Auto) 0.72 H (0.11-0.59) K/uL Eos # (Auto) 0.01 (0-0.5) K/uL Baso # (Auto) 0.01 (0-0.2) K/uL Immature Gran # (Auto) 0.01 (0.00-0.02) K/uL Platelet Estimate Decreased L (Normal) Sodium 131 L (136-145) mmol/L Potassium 4.1 (3.5-5.1) mmol/L Chloride 99 (98-107) mmol/L Carbon Dioxide 28 (21-32) mmol/L Anion Gap 4.0 (3-11) BUN 22 H (7-18) mg/dl Creatinine 1.45 H (0.6-1.4) mg/dl Est Cr Clr Drug Dosing Not Reportable Est GFR ( Amer) 50.5 ml/min Est GFR (Non-Af Amer) 43.6 ml/min BUN/Creatinine Ratio 15.2 (10-20) Glucose 139 H (70-99) mg/dl Calcium 8.9 (8.5-10.1) mg/dl Total Bilirubin 0.6 (0.2-1) mg/dl AST 130 H (15-37) U/L ALT 55 (12-78) U/L Alkaline Phosphatase 48 (45-117) U/L Total Protein 7.2 (6.4-8.2) gm/dl Albumin 3.1 L (3.4-5.0) gm/dl Globulin 4.1 H (2.5-4.0) gm/dl Albumin/Globulin Ratio 0.8 L (0.9-2) Urine Color Dark Yellow Urine Appearance Clear (Clear) Urine pH 5.0 (4.5-7.5) Ur Specific [place] 1.024 (1.000-1.030) Urine Protein 2+ H (Negative) Urine Glucose (UA) Negative (Negative) Urine Ketones Trace H (Negative) Urine Blood 2+ H (Negative) Urine Nitrite Negative (Negative) Urine Bilirubin Negative (Negative) Urine Urobilinogen Negative (Negative) Ur Leukocyte Esterase Negative (Negative) Urine WBC (Auto) 1-5 (0-5) /hpf Urine RBC (Auto) 5-10 H (0-4) /hpf U Hyaline Cast (Auto) 1-5 (0-5) /lpf U Epithel Cells (Auto) 10-20 H (0-5) /lpf Urine Bacteria (Auto) Negative (Negative) Urine Mucus Present A (None Prsent) Anaplasma Smear See Comment Lyme Disease IgG Ab (Negative) Lyme Disease IgM Ab (Negative) Influ A Molecular Assay Influ B Molecular Assay SARS-CoV-2, RNA, NAAT (NEGATIVE) 02/07/21 02/07/21 02/07/21 Range/Units 18:55 18:55 20:28 WBC (4.8-10.8) K/uL RBC (4.7-6.1) M/uL Hgb (14.0-18.0) g/dL Hct (42-52) % MCV (80-100) fL MCH (25-34) pg MCHC (32-36) g/dL RDW Std Deviation (36.4-46.3) fL RDW Coeff of Mik (11.5-14.5) % Plt Count (130-400) K/uL MPV (7.4-10.4) fL Immature Gran % (Auto) % Neut % (Auto) % Lymph % (Auto) % [place] % (Auto) % Eos % (Auto) % Baso % (Auto) % Neut # (Auto) (1.4-6.5) K/uL Lymph # (Auto) (1.2-3.4) K/uL [place] # (Auto) (0.11-0.59) K/uL Eos # (Auto) (0-0.5) K/uL Baso # (Auto) (0-0.2) K/uL Immature Gran # (Auto) (0.00-0.02) K/uL Platelet Estimate (Normal) Sodium (136-145) mmol/L Potassium (3.5-5.1) mmol/L Chloride (98-107) mmol/L Carbon Dioxide (21-32) mmol/L Anion Gap (3-11) BUN (7-18) mg/dl Creatinine (0.6-1.4) mg/dl Est Cr Clr Drug Dosing Est GFR ( Amer) ml/min Est GFR (Non-Af Amer) ml/min BUN/Creatinine Ratio (10-20) Glucose (70-99) mg/dl Calcium (8.5-10.1) mg/dl Total Bilirubin (0.2-1) mg/dl AST (15-37) U/L ALT (12-78) U/L Alkaline Phosphatase (45-117) U/L Total Protein (6.4-8.2) gm/dl Albumin (3.4-5.0) gm/dl Globulin (2.5-4.0) gm/dl Albumin/Globulin Ratio (0.9-2) Urine Color Urine Appearance (Clear) Urine pH (4.5-7.5) Ur Specific [place] (1.000-1.030) Urine Protein (Negative) Urine Glucose (UA) (Negative) Urine Ketones (Negative) Urine Blood (Negative) Urine Nitrite (Negative) Urine Bilirubin (Negative) Urine Urobilinogen (Negative) Ur Leukocyte Esterase (Negative) Urine WBC (Auto) (0-5) /hpf Urine RBC (Auto) (0-4) /hpf U Hyaline Cast (Auto) (0-5) /lpf U Epithel Cells (Auto) (0-5) /lpf Urine Bacteria (Auto) (Negative) Urine Mucus (None Prsent) Anaplasma Smear Cancelled Lyme Disease IgG Ab Negative (Negative) Lyme Disease IgM Ab Negative (Negative) Influ A Molecular Assay Cancelled Influ B Molecular Assay Cancelled SARS-CoV-2, RNA, NAAT (NEGATIVE) 02/07/21 Range/Units 20:28 WBC (4.8-10.8) K/uL RBC (4.7-6.1) M/uL Hgb (14.0-18.0) g/dL Hct (42-52) % MCV (80-100) fL MCH (25-34) pg MCHC (32-36) g/dL RDW Std Deviation (36.4-46.3) fL RDW Coeff of Mik (11.5-14.5) % Plt Count (130-400) K/uL MPV (7.4-10.4) fL Immature Gran % (Auto) % Neut % (Auto) % Lymph % (Auto) % [place] % (Auto) % Eos % (Auto) % Baso % (Auto) % Neut # (Auto) (1.4-6.5) K/uL Lymph # (Auto) (1.2-3.4) K/uL [place] # (Auto) (0.11-0.59) K/uL Eos # (Auto) (0-0.5) K/uL Baso # (Auto) (0-0.2) K/uL Immature Gran # (Auto) (0.00-0.02) K/uL Platelet Estimate (Normal) Sodium (136-145) mmol/L Potassium (3.5-5.1) mmol/L Chloride (98-107) mmol/L Carbon Dioxide (21-32) mmol/L Anion Gap (3-11) BUN (7-18) mg/dl Creatinine (0.6-1.4) mg/dl Est Cr Clr Drug Dosing Est GFR ( Amer) ml/min Est GFR (Non-Af Amer) ml/min BUN/Creatinine Ratio (10-20) Glucose (70-99) mg/dl Calcium (8.5-10.1) mg/dl Total Bilirubin (0.2-1) mg/dl AST (15-37) U/L ALT (12-78) U/L Alkaline Phosphatase (45-117) U/L Total Protein (6.4-8.2) gm/dl Albumin (3.4-5.0) gm/dl Globulin (2.5-4.0) gm/dl Albumin/Globulin Ratio (0.9-2) Urine Color Urine Appearance (Clear) Urine pH (4.5-7.5) Ur Specific [place] (1.000-1.030) Urine Protein (Negative) Urine Glucose (UA) (Negative) Urine Ketones (Negative) Urine Blood (Negative) Urine Nitrite (Negative) Urine Bilirubin (Negative) Urine Urobilinogen (Negative) Ur Leukocyte Esterase (Negative) Urine WBC (Auto) (0-5) /hpf Urine RBC (Auto) (0-4) /hpf U Hyaline Cast (Auto) (0-5) /lpf U Epithel Cells (Auto) (0-5) /lpf Urine Bacteria (Auto) (Negative) Urine Mucus (None Prsent) Anaplasma Smear Lyme Disease IgG Ab (Negative) Lyme Disease IgM Ab (Negative) Influ A Molecular Assay Influ B Molecular Assay SARS-CoV-2, RNA, NAAT POSITIVE A* (NEGATIVE) Administered Medications Sodium Chloride (Nss 1000ml) 1,000 mls @ 80 mls/hr IV .[id number] STA Stop: 02/08/21 10:52 Last Admin: 02/07/21 22:41 Dose: 80 mls/hr Documented by: [id number] Discontinued Medications Dexamethasone Sodium Phosphate (DexamethasonePf 10 Mg/Ml Vial) 6 mg IV NOW ONE Stop: 02/07/21 21:24 Last Admin: 02/07/21 21:29 Dose: 6 mg Documented by: [id number] Acetaminophen (Ofirmev) 1,000 mg in 100 mls @ 400 mls/hr IV NOW STA Stop: 02/07/21 19:05 Last Infusion: 02/07/21 21:30 Dose: 0 mls/hr Documented by: [id number] Admin: 02/07/21 20:03 Dose: 400 mls/hr Documented by: [id number] Sodium Chloride (Nss 1000ml) 1,000 mls @ 125 mls/hr IV .Q8H STA Stop: 02/08/21 02:52 Last Infusion: 02/07/21 22:40 Dose: 0 mls/hr Documented by: [id number] Admin: 02/07/21 21:30 Dose: 125 mls/hr Documented by: [id number] Sodium Chloride (Nss 1000ml) 500 mls @ 999 mls/hr IV .Q31M ONE Stop: 02/07/21 19:23 Last Infusion: 02/07/21 21:30 Dose: 0 mls/hr Documented by: [id number] Admin: 02/07/21 20:09 Dose: 999 mls/hr Documented by: [id number] Ondansetron HCl (Ondansetron Inj 2 Mg/Ml 2 Ml Vial) 4 mg IV NOW STA Stop: 02/07/21 18:52 Last Admin: 02/07/21 20:04 Dose: 4 mg Documented by: [id number] Imaging Data Radiologist's Impression: Chest X-Ray 02/07/21 17:16 XR chest 2V PA/lateral CLINICAL HISTORY: Cough, dyspnea, weakness TECHNIQUE: AP and lateral frontal radiograph of the chest was obtained. Comparison: Comparison is made to chest 2 views 12/19/2019 FINDINGS: No lines and tubes are seen. Calcified aortic knob is seen. Right lower lung airspace opacity noted. No evidence of pleural effusion or pneumothorax. IMPRESSION: Right lower lung airspace opacity. This may represent atelectasis, pneumonia, and/or aspiration. ACT 112: Negative or not required by law. Electronically signed by: Cordell Mcdonald M.D. 02/07/2021 5:56 PM Abdomen/Pelvis CT 02/07/21 18:51 CT abd pelvis wo con CLINICAL HISTORY: abd pain, hx of obstruction TECHNIQUE: Helical axial images of the abdomen and pelvis were obtained. Automated dose lowering techniques and/or adjustment according to patient size were utilized for this exam. This exam was performed without intravenous cont rast. COMPARISON: Comparison is made to CT abdomen and pelvis 04/09/2019 FINDINGS: Lower chest: Bibasilar atelectasis is seen at the left lung base. Scattered groundglass and reticular opacities are seen compatible with scarring with possible superimposed infectious/inflammatory process. Liver: Punctate calcification is again noted in the right lobe of the liver. Gallbladder and biliary tree: Patient is status post cholecystectomy. No intra- or extrahepatic biliary ductal dilation. Pancreas: Unremarkable, no focal lesions. Spleen: Calcifications are noted in the spleen compatible with prior granulomatous disease. Adrenals: Unremarkable. Kidneys and ureters: Bilateral simple cysts are seen. Bladder: Unremarkable. Reproductive organs: Prostatic calcifications are seen which may represent prior hemorrhage or granulomatous disease. Bowel: No evidence of bowel obstruction. The appendix is surgically absent. There is a small hiatal hernia. Lymph nodes Retroperitoneal: Unremarkable. Mesenteric: Unremarkable. Pelvic: Unremarkable. Peritoneum: Normal Vessels: Atherosclerotic calcifications are seen. Abdominal wall: Bilateral fat-containing inguinal hernias are seen. Midline incisional scar is seen. Bones: Degenerative changes in the visualized spine. IMPRESSION: 1. No acute abdominal abnormality and in particular no evidence of bowel obstruction. 2. Ground glass opacities in the right greater than left lung bases which may represent infectious/inflammatory process. ACT 112: Negative or not required by law. Electronically signed by: Cordell Mcdonald M.D. 02/07/2021 8:23 PM Discharge Plan Visit Data Chief Complaint: Abdominal Pain Stated Complaint: A LOT OF ABD PAIN,NOT STEADY ED Provider: Arpit Marks Discharge Problem: COVID-19, Fever, Abdominal pain Discharge Instructions Interventions: ED Discharge Assessment Last Done: 02/07/21 22:56
[2021-02-07 19:53] LABS: Mucus Urine Present (None Prsent)
--- NOTE | 2021-02-07 20:23 | CT Scan Report ---
CT abd pelvis wo con CLINICAL HISTORY: abd pain, hx of obstruction TECHNIQUE: Helical axial images of the abdomen and pelvis were obtained. Automated dose lowering tech niques and/or adjustment according to patient size were utilized for this exam. This exam was perfor med without intravenous contrast. COMPARISON: Comparison is made to CT abdomen and pelvis 04/09/2019 FINDINGS: Lower chest: Bibasilar atelectasis is seen at the left lung base. Scattered groundglass and reticula r opacities are seen compatible with scarring with possible superimposed infectious/inflammatory proc ess. Liver: Punctate calcification is again noted in the right lobe of the liver. Gallbladder and biliary tree: Patient is status post cholecystectomy. No intra- or extrahepatic bilia ry ductal dilation. Pancreas: Unremarkable, no focal lesions. Spleen: Calcifications are noted in the spleen compatible with prior granulomatous disease. Adrenals: Unremarkable. Kidneys and ureters: Bilateral simple cysts are seen. Bladder: Unremarkable. Reproductive organs: Prostatic calcifications are seen which may represent prior hemorrhage or granul omatous disease. Bowel: No evidence of bowel obstruction. The appendix is surgically absent. There is a small hiatal h ernia. Lymph nodes Retroperitoneal: Unremarkable. Mesenteric: Unremarkable. Pelvic: Unremarkable. Peritoneum: Normal Vessels: Atherosclerotic calcifications are seen. Abdominal wall: Bilateral fat-containing inguinal hernias are seen. Midline incisional scar is seen. Bones: Degenerative changes in the visualized spine. IMPRESSION: 1. No acute abdominal abnormality and in particular no evidence of bowel obstruction. 2. Ground glass opacities in the right greater than left lung bases which may represent infectious/i nflammatory process. ACT 112: Negative or not required by law. Electronically signed by: Cordell Mcdonald M.D. 02/07/2021 8:23 PM
[2021-02-07 20:52] LABS: Lyme Ab IgG w/WB Rflx Negative (Negative); Lyme Ab IgM w/WB Rflx Negative (Negative)
[2021-02-07] MEDS ORDERED: dexAMETHasone**PF** 10 MG/ML VIAL IV ONE (21:23)
[2021-02-07] MEDS ORDERED: REMDESIVIR 200 MG in SODIUM CHLORIDE 0.9% 210 ML IV STA (22:22)
--- NOTE | 2021-02-07 22:23 | History & Physical Report ---
Date of Service February 07, 2021 Assessment & Plan (1) Pneumonia due to COVID-19 virus: Plan: Pneumonia due to COVID-19 virus with hypoxia- From the ED the patient received: Dexamethasone 6 mg IV, NSS 500 mL, Zofran 4 mg IV, Tylenol 1 g p.o. Dexamethasone 6 mg IV every morning Remdesivir IV per protocol Azithromycin 500 mg IV every morning Duonebs every 4 hours while awake and every 2 hours when necessary. Vitamin D 1000 international units p.o. every morning Zinc sulfate 220 mg p.o. every morning Nasal cannula oxygen, titrate to keep pulse ox 94-95% Guaifenesin extended release 1200 mg p.o. twice daily (2) Hypoxia: Plan: See above (3) Hyperlipidemia: Plan: Continue lovastatin (4) GERD (gastroesophageal reflux disease): Plan: Continue pantoprazole (5) DM type 2 (diabetes mellitus, type 2): Plan: Hold Metformin Place on Accu-Cheks before meals and at bedtime with NovoLog coverage per scale (6) BPH (benign prostatic hyperplasia): Plan: Continue finasteride (7) Gout: Plan: Continue allopurinol (8) Hypertension: Plan: Continue aspirin Hold spironolactone/HCTZ History of Present Illness Chief Complaint: The patient presents to the emergency department with complaint of generalized abdominal discomfort and fever. Primary Care Provider: Indio Foster MD The patient is an 85-year-old male with a past medical history including small bowel obstruction, renal stones, hyperlipidemia, GERD, diabetes mellitus type 2, BPH, gout, vitamin B12 deficiency, hypertension and erectile dysfunction. He presents emergency department because of generalized abdominal discomfort, and a temperature. Chest x-ray: Right lower lobe infiltrate CT of abdomen and pelvis showed right greater than left lower lung groundglass opacities Abnormal laboratories: Hemoglobin 12.8, hematocrit 38.1, platelets 99, AST 130, glucose 139, creatinine 1.45, albumin 3.1. COVID-19 test was positive Pulse ox on room air was 89% Allergies Allergy/AdvReac Type Severity Reaction Status Date / Time No Known Allergies Allergy Verified 02/07/21 19:29 Home Medications Medication Instructions Recorded Confirmed Type allopurinol 100 mg tablet 100 mg PO HS 06/25/18 02/07/21 History aspirin 325 mg tablet 325 mg PO HS 06/25/18 02/07/21 History cholecalciferol (vitamin D3) 25 1,000 unit PO HS 06/25/18 02/07/21 History mcg (1,000 unit) capsule (Vitamin D3) cyanocobalamin (vitamin B-12) 500 500 mcg PO HS 06/25/18 02/07/21 History mcg tablet (Vitamin B-12) lovastatin 20 mg tablet 20 mg PO HS 06/25/18 02/07/21 History metformin 500 mg tablet 500 mg PO HS 06/25/18 02/07/21 History multivitamin 1 tab PO HS 06/25/18 02/07/21 History pantoprazole 40 mg tablet,delayed 40 mg PO BID 06/25/18 02/07/21 History release spironolactone 25 1 tab PO HS 06/25/18 02/07/21 History mg-hydrochlorothiazide 25 mg tablet zolpidem 5 mg tablet 5 mg PO HS PRN 06/25/18 02/07/21 History docusate sodium 100 mg capsule 100 mg PO BID #1 cap 06/28/18 02/07/21 Rx (Colace) thiamine HCl (vitamin B1) 25 mg 25 mg PO HS 12/18/19 02/07/21 History tablet sildenafil (pulm.hypertension) 20 100 mg PO ONCE PRN #30 tab 06/03/20 02/07/21 Rx mg tablet finasteride 5 mg tablet 5 mg PO DAILY 02/07/21 02/07/21 History Past Med/Surg History Medical History (Updated 02/08/21 @ 01:51 by Jean Brenner MD) BPH (benign prostatic hyperplasia) Diabetes mellitus, type 2 Emphysema of lung CXR and previous chest CT findings consistent with emphysema and asbestos - related disease. GERD (gastroesophageal reflux disease) Gout Hearing deficit Hyperlipidemia Hypertension Kidney stones hx Small bowel obstruction a few times and no surgery Surgical History History of appendectomy Hx of lithotripsy S/P cholecystectomy Family History Mother Diabetes Breast cancer Father Prostate cancer Denies family history of Myocardial infarction Stroke Social History Smoking Status: Former smoker Second Hand Exposure: No; Do You Dip or Chew Tobacco: No; Tobacco Cessation Education Requested by Patient: No Hx Alcohol Use: Yes Alcohol type: beer Hx Substance Use: No Preferred Language: Icelandic Communication Ability: Effective Egg Trayer Required: No Beliefs That Will Affect Care: None marital status: Current Living Situation: Alone Other Information That Helps Us Care for You: No Feels Safe at Home: Yes Safety Concerns: Feels Safe At This Time Assistive Devices: Glasses and Hearing Aid - Bilateral Review of Systems Review of Systems: The patient denies chest pain, palpitations, cough, lower extremity swelling, sore throat, chills, sweats, weight change, fatigue, nausea, vomiting, diarrhea , constipation, blood in urine or stool, dysuria, urinary frequency or urgency, lightheadedness, dizziness, headache, memory loss, loss of consciousness, rash, abnormal bruising or bleeding, imbalance, focal or generalized weakness, numbness or tingling in arms or legs, generalized arthralgias or myalgias, back or neck pain, or night sweats. The review of systems is otherwise negative other than for that already noted above, and at least 10 systems have been reviewed. Physical Exam Physical Exam: The patient is awake, alert and oriented 3, well developed and well nourished, normocephalic and atraumatic, lying in bed and in no acute distress. HEENT--PERRL, EOMI, mucous membranes and oropharynx normal. Neck--supple. No JVD. No bruits. Thyroid normal, trachea midline, no adenopathy. Heart--normal S1 and S2. No murmurs, rubs or gallops. Lungs--coarse breath sounds bilaterally. No respiratory distress, no accessory muscle use. Abdomen--normal bowel sounds and soft. Nontender. Nondistended. Morbid obesity Extremities--no cyanosis or clubbing. No edema. Dermatologic--normal skin turgor, normal color, no abnormal lymph nodes, no rash. Neurologic--cranial nerves II through XII grossly intact. Rheumatologic--normal range of motion. Psychiatric--normal affect. Results & Data Results & Data ([facility]) Vital Signs (Past 12 Hours) Vital Signs Temp Pulse Pulse Resp BP BP Pulse Ox 02/07/21 21:34 96 02/07/21 21:33 98.8 F 89 L 02/07/21 20:30 98 H 24 135/62 93 02/07/21 19:02 103 H 20 136/73 94 02/07/21 17:11 100.8 F H 109 H 20 123/66 94 Laboratory Results Laboratory Results WBC 3.66 K/uL (4.8-10.8) L 02/07/21 18:55 RBC 3.95 M/uL (4.7-6.1) L 02/07/21 18:55 Hgb 12.8 g/dL (14.0-18.0) L 02/07/21 18:55 Hct 38.1 % (42-52) L 02/07/21 18:55 MCV 96.5 fL (80-100) 02/07/21 18:55 MCH 32.4 pg (25-34) 02/07/21 18:55 MCHC 33.6 g/dL (32-36) 02/07/21 18:55 RDW Std Deviation 49.3 fL (36.4-46.3) H 02/07/21 18:55 RDW Coeff of Mik 13.9 % (11.5-14.5) 02/07/21 18:55 Plt Count 99 K/uL (130-400) L 02/07/21 18:55 MPV 9.7 fL (7.4-10.4) 02/07/21 18:55 Immature Gran % (Auto) 0.3 % 02/07/21 18:55 Neut % (Auto) 59.5 % 02/07/21 18:55 Lymph % (Auto) 19.9 % 02/07/21 18:55 [place] % (Auto) 19.7 % 02/07/21 18:55 Eos % (Auto) 0.3 % 02/07/21 18:55 Baso % (Auto) 0.3 % 02/07/21 18:55 Neut # (Auto) 2.18 K/uL (1.4-6.5) 02/07/21 18:55 Lymph # (Auto) 0.73 K/uL (1.2-3.4) L 02/07/21 18:55 [place] # (Auto) 0.72 K/uL (0.11-0.59) H 02/07/21 18:55 Eos # (Auto) 0.01 K/uL (0-0.5) 02/07/21 18:55 Baso # (Auto) 0.01 K/uL (0-0.2) 02/07/21 18:55 Immature Gran # (Auto) 0.01 K/uL (0.00-0.02) 02/07/21 18:55 Platelet Estimate Decreased (Normal) L 02/07/21 18:55 Sodium 131 mmol/L (136-145) L 02/07/21 18:55 Potassium 4.1 mmol/L (3.5-5.1) 02/07/21 18:55 Chloride 99 mmol/L (98-107) 02/07/21 18:55 Carbon Dioxide 28 mmol/L (21-32) 02/07/21 18:55 Anion Gap 4.0 (3-11) 02/07/21 18:55 BUN 22 mg/dl (7-18) H 02/07/21 18:55 Creatinine 1.45 mg/dl (0.6-1.4) H 02/07/21 18:55 Est Cr Clr Drug Dosing Not Reportable 02/07/21 18:55 Est GFR ( Amer) 50.5 ml/min 02/07/21 18:55 Est GFR (Non-Af Amer) 43.6 ml/min 02/07/21 18:55 BUN/Creatinine Ratio 15.2 (10-20) 02/07/21 18:55 Glucose 139 mg/dl (70-99) H 02/07/21 18:55 Calcium 8.9 mg/dl (8.5-10.1) 02/07/21 18:55 Total Bilirubin 0.6 mg/dl (0.2-1) 02/07/21 18:55 AST 130 U/L (15-37) H 02/07/21 18:55 ALT 55 U/L (12-78) 02/07/21 18:55 Alkaline Phosphatase 48 U/L (45-117) 02/07/21 18:55 Total Protein 7.2 gm/dl (6.4-8.2) 02/07/21 18:55 Albumin 3.1 gm/dl (3.4-5.0) L 02/07/21 18:55 Globulin 4.1 gm/dl (2.5-4.0) H 02/07/21 18:55 Albumin/Globulin Ratio 0.8 (0.9-2) L 02/07/21 18:55 Urine Color Dark Yellow 02/07/21 18:48 Urine Appearance Clear (Clear) 02/07/21 18:48 Urine pH 5.0 (4.5-7.5) 02/07/21 18:48 Ur Specific [place] 1.024 (1.000-1.030) 02/07/21 18:48 Urine Protein 2+ (Negative) H 02/07/21 18:48 Urine Glucose (UA) Negative (Negative) 02/07/21 18:48 Urine Ketones Trace (Negative) H 02/07/21 18:48 Urine Blood 2+ (Negative) H 02/07/21 18:48 Urine Nitrite Negative (Negative) 02/07/21 18:48 Urine Bilirubin Negative (Negative) 02/07/21 18:48 Urine Urobilinogen Negative (Negative) 02/07/21 18:48 Ur Leukocyte Esterase Negative (Negative) 02/07/21 18:48 Urine WBC (Auto) 1-5 /hpf (0-5) 02/07/21 18:48 Urine RBC (Auto) 5-10 /hpf (0-4) H 02/07/21 18:48 U Hyaline Cast (Auto) 1-5 /lpf (0-5) 02/07/21 18:48 U Epithel Cells (Auto) 10-20 /lpf (0-5) H 02/07/21 18:48 Urine Bacteria (Auto) Negative (Negative) 02/07/21 18:48 Urine Mucus Present (None Prsent) A 02/07/21 18:48 Anaplasma Smear Cancelled 02/07/21 18:55 Anaplasma Smear See Comment 02/07/21 18:55 Lyme Disease IgG Ab Negative (Negative) 02/07/21 18:55 Lyme Disease IgM Ab Negative (Negative) 02/07/21 18:55 Influenza Type A Ag Neg for Influ A (Neg) 02/07/21 Unknown Influ A Molecular Assay Cancelled 02/07/21 20:28 Influenza Type B Ag Neg for Influ B (Neg) 02/07/21 Unknown Influ B Molecular Assay Cancelled 02/07/21 20:28 SARS-CoV-2, RNA, NAAT POSITIVE (NEGATIVE) A* 02/07/21 20:28 Impressions Chest X-Ray 02/07/21 17:16 XR chest 2V PA/lateral CLINICAL HISTORY: Cough, dyspnea, weakness TECHNIQUE: AP and lateral frontal radiograph of the chest was obtained. Comparison: Comparison is made to chest 2 views 12/19/2019 FINDINGS: No lines and tubes are seen. Calcified aortic knob is seen. Right lower lung airspace opacity noted. No evidence of pleural effusion or pneumothorax. IMPRESSION: Right lower lung airspace opacity. This may represent atelectasis, pneumonia, and/or aspiration. ACT 112: Negative or not required by law. Electronically signed by: Cordell Mcdonald M.D. 02/07/2021 5:56 PM Abdomen/Pelvis CT 02/07/21 18:51 CT abd pelvis wo con CLINICAL HISTORY: abd pain, hx of obstruction TECHNIQUE: Helical axial images of the abdomen and pelvis were obtained. Automated dose lowering techniques and/or adjustment according to patient size were utilized for this exam. This exam was performed without intravenous contrast. COMPARISON: Comparison is made to CT abdomen and pelvis 04/09/2019 FINDINGS: Lower chest: Bibasilar atelectasis is seen at the left lung base. Scattered groundglass and reticular opacities are seen compatible with scarring with possible superimposed infectious/inflammatory process. Liver: Punctate calcification is again noted in the right lobe of the liver. Gallbladder and biliary tree: Patient is status post cholecystectomy. No intra- or extrahepatic biliary ductal dilation. Pancreas: Unremarkable, no focal lesions. Spleen: Calcifications are noted in the spleen compatible with prior granulomatous disease. Adrenals: Unremarkable. Kidneys and ureters: Bilateral simple cysts are seen. Bladder: Unremarkable. Reproductive organs: Prostatic calcifications are seen which may represent prior hemorrhage or granulomatous disease. Bowel: No evidence of bowel obstruction. The appendix is surgically absent. There is a small hiatal hernia. Lymph nodes Retroperitoneal: Unremarkable. Mesenteric: Unremarkable. Pelvic: Unremarkable. Peritoneum: Normal Vessels: Atherosclerotic calcifications are seen. Abdominal wall: Bilateral fat-containing inguinal hernias are seen. Midline incisional scar is seen. Bones: Degenerative changes in the visualized spine. IMPRESSION: 1. No acute abdominal abnormality and in particular no evidence of bowel obstru ction. 2. Ground glass opacities in the right greater than left lung bases which may represent infectious/inflammatory process. ACT 112: Negative or not required by law. Electronically signed by: Cordell Mcdonald M.D. 02/07/2021 8:23 PM Code Status & VTE Plan Code Status Full code VTE Prophylaxis Plan VTE Prophylaxis will be ordered: Yes PG Care Time/CCT Total # of Minutes Spent Total Time Spent with Patient: Total time spent is greater than 50% in coordination of care (as documented) at patient's floor/unit and/or counseling patient: Coding Level of Care Code 01005 Initial Inpt Care Lvl 3 Diagnoses Pneumonia due to COVID-19 virus U07.1; J12.82 Hypoxia R09.02 Hyperlipidemia E78.5 Hyperlipidemia type: unspecified GERD (gastroesophageal reflux disease) K21.9 Esophagitis presence: esophagitis presence not specified DM type 2 (diabetes mellitus, type 2) E11.9 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: without watermelon harvesting supervisor use Diabetes mellitus complication status: without complication BPH (benign prostatic hyperplasia) N40.0 Lower urinary tract symptom presence: symptoms absent Gout M10.9 Hypertension I10 (1) Hyperlipidemia Hyperlipidemia type: unspecified Qualified Code(s): E78.5 - Hyperlipidemia, unspecified (2) GERD (gastroesophageal reflux disease) Esophagitis presence: esophagitis presence not specified Qualified Code(s): K21.9 - Gastro-esophageal reflux disease without esophagitis (3) DM type 2 (diabetes mellitus, type 2) 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
[2021-02-07] MEDS ORDERED: NITROGLYCERIN SL 0.4 MG/TAB TAB SL PRN (22:57)
[2021-02-07] MEDS ORDERED: ONDANSETRON INJ 2 MG/ML 2 ML VIAL IV PRN (22:57)
[2021-02-07] MEDS ORDERED: ZOLPIDEM TARTRATE 5 MG TAB PO PRN (22:57)
[2021-02-07] MEDS ORDERED: INFLUENZA VACCINE HIGH DOSE PF 65+ 0.7 ML SYR IM ONE (23:16)
[2021-02-08] MEDS: PANTOprazole 40 MG TAB PO SCH ×3 (00:20→21:14)
[2021-02-08] MEDS ORDERED: ACETAMINOPHEN 325 MG TAB PO STA (00:30)
[2021-02-08] MEDS ORDERED: ACETAMINOPHEN 325 MG TAB ONE (00:30)
[2021-02-08] MEDS: AZITHROMYCIN 500 MG in DEXTROSE 5% 250 ML IV SCH (06:05)
[2021-02-08] MEDS ORDERED: ALBUT/IPRATROP 3MG/0.5MG NEB 3 ML VIAL NEB SCH (07:00)
[2021-02-08] MEDS ORDERED: PNEUMOCOCCAL POLYSACCHARIDES 25 MCG/0.5 ML VIAL/SYR IM ONE (09:00)
[2021-02-08] MEDS: guaiFENesin 600 MG TABCR PO SCH ×2 (09:18→21:15)
[2021-02-08] MEDS: ZINC SULFATE 220 MG CAPSULE PO SCH (09:18)
[2021-02-08] MEDS: dexAMETHasone 6 MG in SYRINGE 0 ML IV SCH (09:18)
[2021-02-08] MEDS: FINASTERIDE 5 MG TAB PO SCH (09:18)
--- NOTE | 2021-02-08 09:52 | Hospitalist Progress Note ---
Date of Service February 08, 2021 Assessment & Plan (1) Pneumonia due to COVID-19 virus: Plan: Pneumonia due to COVID-19 virus Acute respiratory failure with hypoxia- o. Dexamethasone 6 mg IV every morning Remdesivir IV per protocol Azithromycin 500 mg IV every morning Duonebs every 4 hours while awake and every 2 hours when necessary. Vitamin D 1000 international units p.o. every morning Zinc sulfate 220 mg p.o. every morning Nasal cannula oxygen, titrate to keep pulse ox 94-95% Guaifenesin extended release 1200 mg p.o. 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 He has a nonproductive cough no diarrhea not loss taste or smell Review of Systems Review of Systems: Mild distress and fatigue no headache, no visual changes no speech or swallowing issues no chest pain, pressure or palpitations mild shortness of breath, non productive cough no wheezes no abdominal pain, nausea or vomiting, diarrhea or constipation no dysuria, hematuria or frequency no focal joint pain or swelling no back pain, CVA tenderness or radicular pain no bruising, bleeding or rashes no focal signs of weakness or numbness or altered sensation no complaints of anxiety or depression.. Physical Exam Physical Exam: The patient appeared well nourished and normally developed. Vital signs as documented. Head exam is normocephalic atraumatic Neck is without JVD, thyromegaly, or carotid bruits. Lungs are rales at the right base only Cardiac exam, Rhythm is regular.. No murmurs, rubs or gallops. Abdominal exam reveals normal bowel sounds, soft non tender, no masses Extremities are nonedematous and both pedal pulses are present Neurologic exam is alert and oriented, no focal loss of strength or sensation Skin is without bruises or rashes Psychologically is without concerns for anxiety or depression.. Results & Data Results & Data ([facility]) Vital Signs (Past 12 Hours) Vital Signs Temp Pulse Resp BP Pulse Ox Pulse Ox 02/08/21 09:21 64 20 124/91 96 02/08/21 07:43 67 20 98 02/08/21 06:00 66 12 95 02/08/21 02:30 97.9 F 02/08/21 00:18 100.2 F H 82 20 106/56 L 94 02/07/21 23:06 90 19 114/70 94 02/07/21 23:04 83 20 114/70 94 94 PG Care Time/CCT Total # of Minutes Spent Total Time Spent with Patient: Total time spent is greater than 50% in coordination of care (as documented) at patient's floor/unit and/or counseling patient: Coding Level of Care Code 77359 Subseq Hosp Care Lvl 2 Diagnoses Pneumonia due to COVID-19 virus U07.1; J12.82 Hypoxia R09.02 Hyperlipidemia E78.5 Hyperlipidemia type: unspecified GERD (gastroesophageal reflux disease) K21.9 Esophagitis presence: esophagitis presence not specified DM type 2 (diabetes mellitus, type 2) E11.9 Diabetes mellitus complication status: without complication 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 use: without buttermaker helper use BPH (benign prostatic hyperplasia) N40.0 Lower urinary tract symptom presence: symptoms absent Gout M10.9 Hypertension I10 DVT prophylaxis Z29.9 (1) BPH (benign prostatic hyperplasia) Lower urinary tract symptom presence: symptoms absent Qualified Code(s): N40.0 - Benign prostatic hyperplasia without lower urinary tract symptoms (2) DM type 2 (diabetes mellitus, type 2) Diabetes mellitus complication status: without complication Diabetes mellitus long-term insulin use: without buttermaker helper use Qualified Code(s): E11.9 - Type 2 diabetes mellitus without complications (3) Hyperlipidemia Hyperlipidemia type: unspecified Qualified Code(s): E78.5 - Hyperlipidemia, unspecified (4) GERD (gastroesophageal reflux disease) Esophagitis presence: esophagitis presence not specified Qualified Code(s): K21.9 - Gastro-esophageal reflux disease without esophagitis
--- NOTE | 2021-02-08 10:34 | Electrocardiogram Report ---
Test Reason : Blood Pressure : / mmHG Vent. Rate : 099 BPM Atrial Rate : 099 BPM P-R Int : 158 ms QRS Dur : 106 ms QT Int : 352 ms P-R-T Axes : 060 -46 042 degrees QTc Int : 451 ms Normal sinus rhythm Left anterior fascicular block Abnormal ECG When compared with ECG of 21-MAR-2019 13:03, No significant change was found Confirmed by Juwan Walls ([id number]) on 02/08/2021 10:33:43 AM Referred By: REFERRED SELF Confirmed By:Juwan Walls
[2021-02-08] MEDS ORDERED: ALBUT/IPRATROP 3MG/0.5MG NEB 3 ML VIAL NEB PRN (10:43)
[2021-02-08] MEDS: ENOXAPARIN INJ 60 MG/0.6 ML SYR SQ SCH ×2 (11:30→21:13)
[2021-02-08] MEDS ORDERED: REMDESIVIR 100 MG in SODIUM CHLORIDE 0.9% 230 ML IV SCH (20:00)
[2021-02-08] MEDS ORDERED: SODIUM CHLORIDE 0.9% 10ML FLUSH IV SCH (20:00)
[2021-02-08] MEDS ORDERED: LOVASTATIN 20 MG TAB PO SCH (21:00)
[2021-02-08] MEDS ORDERED: THIAMINE HCL 50 MG TABLET PO SCH (21:00)
[2021-02-08] MEDS ORDERED: CYANOCOBALAMIN 500 MCG TABLET (VITAMIN B-12) PO SCH (21:00)
[2021-02-08] MEDS ORDERED: ASPIRIN 325 MG ECTAB PO SCH (21:00)
[2021-02-08] MEDS ORDERED: allopurinoL 100 MG TAB PO SCH (21:00)
[2021-02-08] MEDS ORDERED: CHOLECALCIFEROL 1,000 UNITS 25 MCG TAB PO SCH (21:00)
[2021-02-08] MEDS ORDERED: MULTIVITAMIN TAB PO SCH (21:00)
[2021-02-09 06:22] LABS: Hematocrit (blood only) 38.2 % (42-52); Hemoglobin 12.8 g/dL (14.0-18.0); Immature Granulocytes # (auto) 0.01 K/uL (0.00-0.02); Immature Granulocytes % (auto) 0.3 %; Lymphocytes # (auto) 1.06 K/uL (1.2-3.4); Lymphocytes % (auto) 26.6 %; Mean Corpuscular Hemoglobin 32.2 pg (25-34); Mean Corpuscular Hgb Conc 33.5 g/dL (32-36); Mean Platelet Volume 10.5 fL (7.4-10.4); Monocytes # (auto) 0.48 K/uL (0.11-0.59); Neutrophils # (auto) 2.44 K/uL (1.4-6.5); Neutrophils % (auto) 61.1 %; Platelet Count 107 K/uL (130-400); RDW Coefficient of Variation 13.8 % (11.5-14.5); RDW Standard Deviation 48.8 fL (36.4-46.3); Red Blood Count 3.98 M/uL (4.7-6.1); White Blood Count 3.99 K/uL (4.8-10.8)
[2021-02-09 06:50] LABS: Albumin Level 2.4 gm/dl (3.4-5.0); BUN Creatinine Ratio 29.6 (10-20); Calcium 8.3 mg/dl (8.5-10.1); Creatinine Clr Calc Pharmacy 63.3 ml/min; Est GFR (African American) 68.3 ml/min; Est GFR (Non-African American) 58.9 ml/min; Potassium 4.4 mmol/L (3.5-5.1)
[2021-02-09 06:53] LABS: Albumin Globulin Ratio 0.6 (0.9-2); Bilirubin,Total 0.4 mg/dl (0.2-1); Total Protein 6.4 gm/dl (6.4-8.2)
[2021-02-09 07:10] LABS: Echinocytes 1+
[2021-02-09] MEDS: PANTOprazole 40 MG TAB PO SCH (07:50)
[2021-02-09] MEDS: ZINC SULFATE 220 MG CAPSULE PO SCH (07:50)
[2021-02-09] MEDS: FINASTERIDE 5 MG TAB PO SCH (07:50)
[2021-02-09] MEDS: guaiFENesin 600 MG TABCR PO SCH (07:50)
[2021-02-09] MEDS: ENOXAPARIN INJ 60 MG/0.6 ML SYR SQ SCH (07:51)
[2021-02-09] MEDS: AZITHROMYCIN 500 MG in DEXTROSE 5% 250 ML IV SCH (07:55)
[2021-02-09] MEDS: dexAMETHasone 6 MG in SYRINGE 0 ML IV SCH (08:51)
--- NOTE | 2021-02-09 15:42 | Discharge Summary ---
Date of Service February 09, 2021 Admission HPI Per Admitting Provider The patient is an 85-year-old male with a past medical history including small bowel obstruction, renal stones, hyperlipidemia, GERD, diabetes mellitus type 2, BPH, gout, vitamin B12 deficiency, hypertension and erectile dysfunction. He presents emergency department because of generalized abdominal discomfort, and a temperature. Chest x-ray: Right lower lobe infiltrate CT of abdomen and pelvis showed right greater than left lower lung groundglass opacities Abnormal laboratories: Hemoglobin 12.8, hematocrit 38.1, platelets 99, AST 130, glucose 139, creatinine 1.45, albumin 3.1. COVID-19 test was positive Pulse ox on room air was 89% Principal Diagnosis COVID 19 pneumonia Discharge Exam General: well developed, well nourished, elderly male, no acute distress, comfortable Neck: supple, trachea midline, normal thyroid Lungs: clear to auscultation bilaterally, normal respiratory effort, no accessory muscle use, no distress Heart: regular S1 and S2, no murmur, peripheral pulses normal, capillary refill normal, no edema Abdomen: soft, NT, ND, + BS, no hepatomegaly, normal to percussion Extremities: normal in appearance, no cyanosis, no petechiae, strength is 5/5 bilaterally Neuro: awake, cooperative, moves all extremities, no focal motor deficits, CN II-XII intact, sensation in extremities intact, normal speech Skin: warm, dry, no rash, normal turgor Psych: Awake, alert oriented x 3, euthymic affect Discharge Data Allergies Allergy/AdvReac Type Severity Reaction Status Date / Time No Known Allergies Allergy Verified 02/07/21 19:29 Consultations 02/07/21 21:47 ED Decision to Admit Stat Ordered Studies 02/07/21 18:51 CT abd pelvis wo con Stat Hospital Course (1) Pneumonia due to COVID-19 virus: Pneumonia due to COVID-19 virus Dexamethasone 6 mg IV daily, change to PO on discharge to complete 10 day course Remdesivir IV per protocol, no need to continue on discharge Azithromycin 500 mg IV daily, doubt bacterial infection, will stop on discharge Duonebs used PRN, no wheezing today Vitamin D 1000 international units p.o. every morning Zinc sulfate 220 mg p.o. every morning down to room air at rest, 2 step shows he needs 2L on exertion, arranged for home oxygen d/c to home, complete 7 more days of dexamethasone stay well nourished, well hydrated, well rested (2) Hypoxia: down to room air at rest, needs 2L on exertion (3) Hyperlipidemia: Continue lovastatin (4) GERD (gastroesophageal reflux disease): Continue pantoprazole (5) DM type 2 (diabetes mellitus, type 2): resume Metformin on discharge follow low carb diet (6) BPH (benign prostatic hyperplasia): Continue finasteride (7) Gout: Continue allopurinol (8) Hypertension: Continue aspirin Hold spironolactone/HCTZ for several more days on discharge, BP is low normal want him to stay well hydrated so avoid diuretic therapy for now (9) DVT prophylaxis: Marc I certify that this patient is under my care and that I, or a physicians trade sales assistant working with me, had a face to-face encounter that meets the home health [id number] encounter requirements with this patient. The encounter with the patient was in whole, or in part, for the following medical condition, which is the primary reason for home health care (list medical condition): Covid I certify that, based on my findings, the following services are medically necessary home health services: My clinical findings support the need for the above services because: Skilled Nsg Assessment Further, I certify that my clinical findings support that this patient is homebound (i.e. absences from home require considerable and taxing effort and are for medical reasons or faith services or infrequently or of short duration when for other reasons) because: Transportation Assistance/Unable to Leave Home Unassisted Certification for Home Health Services: Based on the above findings, I certify that this patient is confined to the home and needs intermittent residential care, physical therapy and/or speech therapy or continues to need occupational therapy. The patient is under my care, and I have initiated the establishment of the plan of care. This patient will be followed by a physician who will periodically review the plan of care. Total Time Total Time Spent Total Time Spent (In Minutes): 32 minutes Total Time Includes: Examination of the Patient, Discharge Planning, Medication Reconciliation and Other (speaking with his daughter over the phone) Discharge Plan Discharge Items Patient Disposition: Home - Self-Care Reason For Visit: A LOT OF ABD PAIN,NOT STEADY Discharge Diagnosis: COVID 19 pneumonia Acute hypoxic respiratory failure Condition on Discharge: Good Goals: complete course of dexamethasone improve strength and mobility stay well nourished, well hydrated Activity: Resume your previous activity Weightbearing: Full weightbearing Non-emergency contact: Primary Care Provider Call non-emergency contact if: you have any medication questions and your symptoms worsen Follow-up/Referrals: Indio Foster MD [Primary Care Provider] - (one week) Diet: Carb Consistent or DM2 Addtl Attending Provider Instructions: Medications: - DEXAMETHASONE: 6mg daily for 7 more days, start tomorrow morning - SPIRONOLACTONE/HCTZ: hold this medication for 3 more days but then you can resume, morning of 02/13 COVID 19 pneumonia, not severe, down to room air at rest today you need to use 2L of oxygen on exertion (any time you are walking, even around the house) anticipate you will need the oxygen for a week, maybe less follow up with Dr. Foster stay well nourished, well hydrated Pending Studies at Discharge: No Stand-Alone Forms: [facility], Smoking Cessation Medications and DC Order Prescriptions: New dexamethasone 4 mg tablet 6 mg PO DAILY 7 Days Qty: 11 RF: 0 Continued sildenafil (pulm.hypertension) 20 mg tablet 100 mg PO ONCE PRN (Reason: sexual activity) Qty: 30 RF: 11 thiamine HCl (vitamin B1) 25 mg Tablet 25 mg PO HS RF: 0 metformin 500 mg tablet 500 mg PO HS RF: 0 allopurinol 100 mg tablet 100 mg PO HS RF: 0 pantoprazole 40 mg tablet,delayed release (DR/EC) 40 mg PO BID RF: 0 zolpidem 5 mg tablet 5 mg PO HS PRN (Reason: Sleep) RF: 0 lovastatin 20 mg tablet 20 mg PO HS RF: 0 multivitamin Tablet 1 tab PO HS RF: 0 aspirin 325 mg Tablet 325 mg PO HS RF: 0 cyanocobalamin (vitamin B-12) [Vitamin B-12] 500 mcg Tablet 500 mcg PO HS RF: 0 cholecalciferol (vitamin D3) [Vitamin D3] 1,000 unit Capsule 1,000 unit PO HS RF: 0 docusate sodium [Colace] 100 mg capsule 100 mg PO BID Qty: 1 RF: 0 finasteride 5 mg tablet 5 mg PO DAILY RF: 0 Discontinued spironolacton-hydrochlorothiaz 25-25 mg tablet 1 tab PO HS RF: 0 Discharge Orders: Discharge Order (Routine); Ordered 02/09/21 Ordered By: Cordell Wallace Admission Data Admit Date/Time: 02/07/21 22:22 Attending Provider: Cordell Wallace Admit Provider: Jean Brenner Primary Care Provider: Indio Foster Other Providers: Jean Brenner ; [facility] Other Interventions: Discharge Summary Assessment (RN) Last Done: 02/09/21 16:41 Coding Level of Care Code D/C DAY MANAGEMENT >30 MINS Diagnoses Pneumonia due to COVID-19 virus U07.1; J12.82 Hypoxia R09.02 Hyperlipidemia E78.5 Hyperlipidemia type: unspecified GERD (gastroesophageal reflux disease) K21.9 Esophagitis presence: esophagitis presence not specified DM type 2 (diabetes mellitus, type 2) E11.9 Diabetes mellitus complication status: without complication Diabetes mellitus intermediate designer insulin use: without fdc use BPH (benign prostatic hyperplasia) N40.0 Lower urinary tract symptom presence: symptoms absent Gout M10.9 Hypertension I10 DVT prophylaxis Z29.9
== END 2021-02-09 18:23 | disposition home health service (06) | DRG 177 ==
LOC: ED 16:57 → SUATTDRO 22:22 → EDINP 22:22 → 2S 22:56

== ENCOUNTER 2021-12-28 18:43 | Inpatient (IN) ==
[2021-12-28 20:02] LABS: Basophils # (auto) 0.02 K/uL (0-0.2); Basophils % (auto) 0.2 %; Eosinophils # (auto) 0.06 K/uL (0-0.50); Eosinophils % (auto) 0.6 %; Hematocrit (blood only) 42.6 % (40.1-51.0); Hemoglobin 14.9 g/dl (14.0-18.0); Lymphocytes # (auto) 1.15 K/uL (1.2-3.4); Lymphocytes % (auto) 11.5 %; Mean Corpuscular Hemoglobin 32.9 pg (25.0-34.0); Mean Platelet Volume 10.1 fL (9.4-12.4); Monocytes # (auto) 0.69 K/uL (0.24-0.82); Monocytes % (auto) 6.9 %; Neutrophils # (auto) 7.88 K/uL (1.4-6.5); Neutrophils % (auto) 78.8 %; Platelet Count 211 K/uL (130-400); RDW Coefficient of Variation 13.6 % (11.5-14.5); RDW Standard Deviation 46.3 fL (36.4-46.3); Red Blood Count 4.53 M/uL (4.63-6.08)
[2021-12-28 20:24] LABS: Albumin Globulin Ratio 1.2 (0.9-2); Albumin Level 4.1 gm/dl (3.4-5.0); BUN Creatinine Ratio 16.5 (10-20); Bilirubin,Total 1.1 mg/dl (0.2-1.0); Calcium 10.6 mg/dl (8.5-10.1); Creatinine Clr Calc Pharmacy 55.1 ml/min; Est GFR (African American) 58.9 ml/min; Est GFR (Non-African American) 50.8 ml/min; Globulin 3.5 gm/dl (2.5-4.0); Potassium 4.4 mmol/L (3.5-5.1); Total Protein 7.6 gm/dl (6.0-8.3)
[2021-12-28 20:52] LABS: Appearance Urine Cloudy (Clear); Bacteria Urine Automated Negative (Negative); Blood Urine Negative (Negative); Color Urine Dark Yellow; Glucose Urine UA Negative (Negative); Ketones Urine Trace (Negative); Leukocyte Esterase Urine Trace (Negative); Nitrite Urine Negative (Negative); Protein Urine 2+ (Negative); RBC Urine Automated 0-4 /hpf (0-4); Specific Gravity Urine 1.027 (1.000-1.030); Urobilinogen Urine Negative (Negative)
[2021-12-28 20:56] LABS: Bilirubin Urine 1+ (Negative)
[2021-12-28 21:04] LABS: Cast Urine Automated >30 /lpf (0-5)
[2021-12-28] MEDS ORDERED: MoRPHine SULFATE 4 MG/ML 1 ML CARP\\VIAL IV STA (22:26)
[2021-12-28] MEDS ORDERED: SODIUM CHLORIDE 0.9% 1000ML 500 ML IV ONE (22:26)
--- NOTE | 2021-12-28 22:30 | Emergency Department Note ---
Impression & Plan SBO (small bowel obstruction) ED Provider Note Provider: Sander Mancuso MD DATE OF SERVICE: 12/28/2021 CHIEF COMPLAINT: Abdominal pain and distention, nausea and vomiting HISTORY OF PRESENT ILLNESS: Patient is a 86-year-old gentleman history of small bowel obstruction, BPH, type 2 diabetes, and hypertension presenting here today reporting onset of some nausea and vomiting and abdominal discomfort last evening. Vomited overnight but improved midmorning to afternoon today. Around 5 PM this evening however began to get significantly nauseous and vomiting with abdominal distention and diffuse abdominal pain then. Denies any trauma. Denies any chest pain. Little bit of gas but denies significant bowel movements. Did try an Ex-Lax earlier this evening without improvement. States it feels similar to prior history of bowel obstructions. REVIEW OF SYSTEMS: A total of 10 review of systems was obtained and negative except as stated above in the HPI. PAST MEDICAL HISTORY: As noted above MEDICATIONS: Reviewed home medication list SOCIAL HISTORY: Former smoker PHYSICAL EXAM: GENERAL: alert and oriented in no acute distress on stretcher Head: normocephalic and atraumatic EYES: No injection, discharge or icterus. NECK: Trachea midline. LUNGS: Airway patent. No retractions or tachycardia HEART: Regular rate and rhythm. No chest wall tenderness ABDOMEN: Moderately distended with mild diffuse tenderness. SKIN: Acyanotic, warm, dry, without rashes EXTREMITIES: Without swelling, tenderness or deformity NEUROLOGICAL: No focal deficits. No aphasia. No facial droop or slurred speech. Patient's laboratory studies and imaging reviewed. Differential includes Appendicitis, testicular torsion, infections, diverticulitis, UTI, obstruction, mesenteric ischemia, aortic pathology, inflammatory bowel disease, renal colic, PUD, pancreatitis, biliary pathology, hernia, volvulus, constipation, as well as other pathologies. IMPRESSION/MEDICAL DECISION MAKING: Patient seen and extremely busy time here in the ER and triage protocols were initiated. Patient's protocol blood work and urinalysis without significant anemia and no leukocytosis. No severe electrolyte abnormality noted. Bilirubin 1.1. No significant LFT abnormality or evidence of pancreatitis with normal lipase. Urinalysis with nonspecific contamination findings not indicative of infection. Patient and daughter were understandably upset about the length of wait tonight due to the volume & acuity here in the ER. Since for CT scan to evaluate for possible intra-abdominal pathology in particular SBO. Given some morphine for pain. CT with evidence of a high-grade small bowel obstruction possibly related to adhesions. Did make the general surgery PA aware of the patient to evaluate given the high-grade nature of the SBO although the patient indicates he wishes to avoid surgery it at all possible. He was resting comfortably currently. Not having significant nausea but NG tube will be placed to help with decompression. Hospitalist to be contacted for admission. DIAGNOSIS: SBO DISPOSITION: Hospitalist and surgery team will evaluate. Patient agreeable with this. Preliminary Findings Only See Final Report For Complete Findings CT ABDOMEN & PELVIS With Contrast: Dilated loops of small bowel measure up to 4.5 cm with a collapsed appearance of distal small bowel loops compatible with high-grade small bowel obstruction potentially related to adhesions C Radiologist: Cordell Sena MD Study ready at 23:38 and initial results transmitted at 00:27 Past Med/Surg History Medical History BPH (benign prostatic hyperplasia) Diabetes mellitus, type 2 Emphysema of lung CXR and previous chest CT findings consistent with emphysema and asbestos - related disease. 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: No Beliefs That Will Affect Care: None marital status: Current Living Situation: Alone Feels Safe at Home: Yes Assistive Devices: Hearing Aid - Bilateral Allergies Allergies Allergy/AdvReac Type Severity Reaction Status Date / Time No Known Allergies Allergy Verified 12/28/21 22:39 Home Meds Home Medications Medication Instructions Recorded Confirmed allopurinol 100 mg tablet 100 mg PO HS 06/25/18 12/28/21 aspirin 325 mg tablet 325 mg PO HS 06/25/18 12/28/21 cyanocobalamin (vitamin B-12) 500 500 mcg PO HS 06/25/18 12/28/21 mcg tablet (Vitamin B-12) lovastatin 20 mg tablet 20 mg PO HS 06/25/18 12/28/21 metformin 500 mg tablet 500 mg PO HS 06/25/18 12/28/21 multivitamin 1 tab PO HS 06/25/18 12/28/21 pantoprazole 40 mg tablet,delayed 40 mg PO BID 06/25/18 12/28/21 release zolpidem 5 mg tablet 5 mg PO HS PRN Sleep 06/25/18 12/28/21 thiamine HCl (vitamin B1) 25 mg 25 mg PO HS 12/18/19 12/28/21 tablet finasteride 5 mg tablet 5 mg PO DAILY 02/07/21 12/28/21 ergocalciferol (vitamin D2) 1,250 50,000 unit PO BID 12/28/21 12/28/21 mcg (50,000 unit) capsule (Vitamin D2) guaifenesin 600 mg tablet, 600 mg PO Q12H PRN Congestion 12/28/21 12/28/21 extended release 12 hr (Mucinex) Previous Rx's Medication Instructions Recorded docusate sodium 100 mg capsule 100 mg PO BID #1 cap 06/28/18 (Colace) sildenafil (pulm.hypertension) 20 100 mg PO ONCE PRN sexual activity 12/10/21 mg tablet #30 tabs Results & Data (ED) Vital Signs Vital Signs - 24 hr 12/28/21 18:56 12/28/21 21:10 Temperature 36.8 C Temperature Source Temporal Artery Scan Pulse Rate 102 H Pulse Rate [Right Finger] 98 H Pulse Rhythm Regular Pulse Rhythm [Right Finger] Regular Pulse Strength Normal Pulse Strength [Right Finger] Normal Respiratory Rate 20 18 Respiratory Effort / Characteristics Non-Labored Spontaneous Non-Labored Respiratory Depth Normal Normal Respiratory Pattern Regular Regular Blood Pressure [Right Arm] 156/72 H Blood Pressure Mean [Right Arm] 100 Blood Pressure Position Sitting Blood Pressure Position [Right Arm] Lying Pulse Oximetry 93 94 Oxygen Delivery Method Room Air Room Air Sepsis Recent Fever Within 48 Hours No Sepsis New/Unexplained Change in Mental Status No Sepsis Action Taken by Nursing No Action Required Laboratory Data Result diagrams: 12/28/21 19:52 12/28/21 19:52 Lab Results 12/28/21 12/28/21 12/28/21 Range/Units 19:52 19:52 20:36 WBC 10.00 (4.8-10.8) K/ul RBC 4.53 L (4.63-6.08) M/uL Hgb 14.9 (14.0-18.0) g/dl Hct 42.6 (40.1-51.0) % MCV 94.0 (80.0-100.0) fL MCH 32.9 (25.0-34.0) pg MCHC 35.0 (32.0-36.0) g/dL RDW Std Deviation 46.3 (36.4-46.3) fL RDW Coeff of Mik 13.6 (11.5-14.5) % Plt Count 211 (130-400) K/uL MPV 10.1 (9.4-12.4) fL Immature Gran % (Auto) 2.0 % Neut % (Auto) 78.8 % Lymph % (Auto) 11.5 % Wal[place] % (Auto) 6.9 % Eos % (Auto) 0.6 % Baso % (Auto) 0.2 % Neut # (Auto) 7.88 H (1.4-6.5) K/uL Lymph # (Auto) 1.15 L (1.2-3.4) K/uL Waldo # (Auto) 0.69 (0.24-0.82) K/uL Eos # (Auto) 0.06 (0-0.50) K/uL Baso # (Auto) 0.02 (0-0.2) K/uL Immature Gran # (Auto) 0.20 H (0.00-0.02) K/uL Sodium 138 (136-145) mmol/L Potassium 4.4 (3.5-5.1) mmol/L Chloride 102 (98-107) mmol/L Carbon Dioxide 26 (21-32) mmol/L Anion Gap 10 (3-11) BUN 21 (6-23) mg/dl Creatinine 1.27 (0.6-1.4) mg/dl Est Cr Clr Drug Dosing 55.1 ml/min Est GFR ( Amer) 58.9 ml/min Est GFR (Non-Af Amer) 50.8 ml/min BUN/Creatinine Ratio 16.5 (10-20) Glucose 192 H (70-99(Fasting)) mg/dl Calcium 10.6 H (8.5-10.1) mg/dl Total Bilirubin 1.1 H (0.2-1.0) mg/dl AST 18 (13-39) U/L ALT 13 (7-52) U/L Alkaline Phosphatase 60 (34-104) U/L Total Protein 7.6 (6.0-8.3) gm/dl Albumin 4.1 (3.4-5.0) gm/dl Globulin 3.5 (2.5-4.0) gm/dl Albumin/Globulin Ratio 1.2 (0.9-2) Lipase 12 (11-82) U/L Urine Color Dark Yellow Urine Appearance Cloudy A (Clear) Urine pH 5.0 (4.5-7.5) Ur Specific [place] 1.027 (1.000-1.030) Urine Protein 2+ H (Negative) Urine Glucose (UA) Negative (Negative) Urine Ketones Trace H (Negative) Urine Blood Negative (Negative) Urine Nitrite Negative (Negative) Urine Bilirubin 1+ H (Negative) Urine Urobilinogen Negative (Negative) Ur Leukocyte Esterase Trace H (Negative) Urine WBC (Auto) 1-5 (0-5) /hpf Urine RBC (Auto) 0-4 (0-4) /hpf U Hyaline Cast (Auto) >30 H (0-5) /lpf U Epithel Cells (Auto) 10-20 H (0-5) /lpf Urine Bacteria (Auto) Negative (Negative) SARS-CoV-2, RNA, NAAT (NEGATIVE) 12/28/21 Range/Units 23:11 WBC (4.8-10.8) K/ul RBC (4.63-6.08) M/uL Hgb (14.0-18.0) g/dl Hct (40.1-51.0) % MCV (80.0-100.0) fL MCH (25.0-34.0) pg MCHC (32.0-36.0) g/dL RDW Std Deviation (36.4-46.3) fL RDW Coeff of Mik (11.5-14.5) % Plt Count (130-400) K/uL MPV (9.4-12.4) fL Immature Gran % (Auto) % Neut % (Auto) % Lymph % (Auto) % [place] % (Auto) % Eos % (Auto) % Baso % (Auto) % Neut # (Auto) (1.4-6.5) K/uL Lymph # (Auto) (1.2-3.4) K/uL [place] # (Auto) (0.24-0.82) K/uL Eos # (Auto) (0-0.50) K/uL Baso # (Auto) (0-0.2) K/uL Immature Gran # (Auto) (0.00-0.02) K/uL Sodium (136-145) mmol/L Potassium (3.5-5.1) mmol/L Chloride (98-107) mmol/L Carbon Dioxide (21-32) mmol/L Anion Gap (3-11) BUN (6-23) mg/dl Creatinine (0.6-1.4) mg/dl Est Cr Clr Drug Dosing ml/min Est GFR ( Amer) ml/min Est GFR (Non-Af Amer) ml/min BUN/Creatinine Ratio (10-20) Glucose (70-99(Fasting)) mg/dl Calcium (8.5-10.1) mg/dl Total Bilirubin (0.2-1.0) mg/dl AST (13-39) U/L ALT (7-52) U/L Alkaline Phosphatase (34-104) U/L Total Protein (6.0-8.3) gm/dl Albumin (3.4-5.0) gm/dl Globulin (2.5-4.0) gm/dl Albumin/Globulin Ratio (0.9-2) Lipase (11-82) U/L Urine Color Urine Appearance (Clear) Urine pH (4.5-7.5) Ur Specific [place] (1.000-1.030) Urine Protein (Negative) Urine Glucose (UA) (Negative) Urine Ketones (Negative) Urine Blood (Negative) Urine Nitrite (Negative) Urine Bilirubin (Negative) Urine Urobilinogen (Negative) Ur Leukocyte Esterase (Negative) Urine WBC (Auto) (0-5) /hpf Urine RBC (Auto) (0-4) /hpf U Hyaline Cast (Auto) (0-5) /lpf U Epithel Cells (Auto) (0-5) /lpf Urine Bacteria (Auto) (Negative) SARS-CoV-2, RNA, NAAT NEGATIVE (NEGATIVE) Administered Medications Discontinued Medications Sodium Chloride (Nss 1000ml) 500 mls @ 999 mls/hr IV .Q31M ONE Stop: 12/28/21 22:56 Last Infusion: 12/29/21 00:13 Dose: 0 mls/hr Documented By: Admin: 12/28/21 23:10 Dose: 999 mls/hr Documented By: LIZ Ioversol (Ioversol 350 Mg 100ml Prefilled Syringe) 94 ml IV ONCE ONE Stop: 12/28/21 22:34 Last Admin: 12/28/21 22:33 Dose: 94 ml Documented By: MARIANA Morphine Sulfate (Morphine Sulfate 4 Mg/Ml 1 Ml Carp\Vial) 4 mg IV NOW STA Stop: 12/28/21 22:27 Last Admin: 12/28/21 23:09 Dose: 4 mg Documented By: LIZ Morphine Sulfate (Morphine Sulfate 4 Mg/Ml 1 Ml Carp\Vial) 4 mg IV NOW STA Stop: 12/29/21 00:37 Last Admin: 12/29/21 00:48 Dose: 4 mg Documented By: LIZ Discharge Plan Visit Data Chief Complaint: Abdominal Pain Stated Complaint: ABD PAIN, VOMITTING, NO BOWEL MOVEMENT ED Provider: Sander Mancuso Discharge Problem: SBO (small bowel obstruction) Patient Disposition: Being Evaluated by Hospitalist Forms Stand Alone Forms: [facility] Prescriptions Prescriptions: No Action sildenafil (pulm.hypertension) 20 mg tablet 100 mg PO ONCE PRN (Reason: sexual activity) Qty: 30 5RF Rx Instructions: Take approx 1 hour prior to activity. Avoid large or heavy meals for maximum effectiveness. thiamine HCl (vitamin B1) 25 mg Tablet 25 mg PO HS metformin 500 mg tablet 500 mg PO HS allopurinol 100 mg tablet 100 mg PO HS pantoprazole 40 mg tablet,delayed release (DR/EC) 40 mg PO BID zolpidem 5 mg tablet 5 mg PO HS PRN (Reason: Sleep) lovastatin 20 mg tablet 20 mg PO HS multivitamin Tablet 1 tab PO HS aspirin 325 mg Tablet 325 mg PO HS cyanocobalamin (vitamin B-12) [Vitamin B-12] 500 mcg Tablet 500 mcg PO HS docusate sodium [Colace] 100 mg capsule 100 mg PO BID Qty: 1 0RF finasteride 5 mg tablet 5 mg PO DAILY ergocalciferol (vitamin D2) [Vitamin D2] 1,250 mcg (50,000 unit) capsule 50,000 unit PO BID guaifenesin [Mucinex] 600 mg Tablet Extended Release 12hr 600 mg PO Q12H PRN (Reason: Congestion) Referrals Referrals: Indio Foster MD [Primary Care Provider] -
[2021-12-28] MEDS ORDERED: IOVERSOL 350 MG 100mL Prefilled Syringe IV ONE (22:33)
[2021-12-29] MEDS ORDERED: MoRPHine SULFATE 4 MG/ML 1 ML CARP\\VIAL IV STA (00:36)
--- NOTE | 2021-12-29 00:56 | Surgery Consultation ---
Date of Consultation December 29, 2021 Assessment & Plan (1) SBO (small bowel obstruction): Due to the patient's clinical presentation and imaging he will be admitted to the hospital on the hospital service proceeding as follows: We will implement n.p.o. status The treating emergency room physician has ordered an NG tube to be placed. I agree with this modality and it should be continued until patient has return of bowel function and improvement of his clinical exam. Once his NG tube is removed we can consider advancing his diet slowly beginning with clear liquids Provide hydration with IV fluids Provide analgesics Provide antiemetics At the present time the patient is noted to be normotensive with only a slight tachycardia (heart rate is in the 90s) he does not have an elevated white blood cell count and he also does not have acute kidney injury. He is only minimal discomfort at this time, therefore I do not feel an urgent surgical procedure is required and I feel a trial of conservative management as outlined above is reasonable approach. Additional recommendations will be forthcoming based on patient's clinical response to the above plan. as above. pt seen. feeling ok. mild mid abdominal discomfort. feeling better than yesterday. has hx of similar episosodes last one in 2019. ct reviewed cont NPO/ice chips. IVF. NGT. will repeat KUB tomorrow pt does not want surgery unless no other option which I agree with. will continue to follow closely. History of Present Illness Reason for Consultation: Small bowel obstruction History of Present Illness This is an 86-year-old male who presented to [facility] emergency department secondary to abdominal pain. The patient notes that his abdominal pain began yesterday. Following development of abdominal pain he has had associated nausea and vomiting. The patient reports his most recent emesis was at approximately 5:00 PM on 12/28/2021. Patient notes that he has not had a bowel movement for approximately 3 days but he is passing small amounts of flatus. He does not note any radiation of his abdominal pain or discomfort. He does not note any modifying factors to his pain. Patient notes that he has had previous surgeries in the form of an open cholecystectomy in the early 1970s. He also notes that he has had an open appendectomy in the past. The patient notes that he has had approximately 10 small bowel obstructions following these 2 surgeries. He notes that every time he has had a small bowel obstruction he has never required surgery and they have all been treated successfully in a conservative manner. He does note that his current presentation feels similar to her previous episodes of small bowel obstruction. He denies any fevers, shakes, or chills. He denies any chest pain. He denies any shortness of breath. In the emergency department the patient had labs and imaging which I independently reviewed.A CT scan of the abdomen pelvis showed the patient had some dilated loops of small bowel measuring up to 4.5 cm. The distal small bowel appeared to be collapsed. This was felt to be compatible with a high- grade small bowel obstruction likely related to adhesions. In addition on the study the patient appeared to have a fluid-filled stomach. Labs include a CBC were white blood cell count, hemoglobin, hematocrit, platelet count were all within normal range. Chemistry profile showed sodium, potassium, BUN, and creatinine were normal. There is only a slight elevation of patient's total bilirubin at 1.1. The remainder of patient's LFTs including his transaminases and alkaline phosphatase were nonelevated. His lipase was not elevated. Urinalysis was not indicative of infection. A COVID test was noted be negative. At the time of my interview the patient was resting comfortably in bed. He was in no distress and noted he only had minimal pain at this time. Allergies Allergy/AdvReac Type Severity Reaction Status Date / Time No Known Allergies Allergy Verified 12/28/21 22:39 Home Medications Medication Instructions Recorded Confirmed Type allopurinol 100 mg tablet 100 mg PO HS 06/25/18 12/28/21 History aspirin 325 mg tablet 325 mg PO HS 06/25/18 12/28/21 History cyanocobalamin (vitamin B-12) 500 500 mcg PO HS 06/25/18 12/28/21 History mcg tablet (Vitamin B-12) lovastatin 20 mg tablet 20 mg PO HS 06/25/18 12/28/21 History metformin 500 mg tablet 500 mg PO HS 06/25/18 12/28/21 History multivitamin 1 tab PO HS 06/25/18 12/28/21 History pantoprazole 40 mg tablet,delayed 40 mg PO BID 06/25/18 12/28/21 History release zolpidem 5 mg tablet 5 mg PO HS PRN Sleep 06/25/18 12/28/21 History docusate sodium 100 mg capsule 100 mg PO BID #1 cap 06/28/18 12/28/21 Rx (Colace) thiamine HCl (vitamin B1) 25 mg 25 mg PO HS 12/18/19 12/28/21 History tablet finasteride 5 mg tablet 5 mg PO DAILY 02/07/21 12/28/21 History sildenafil (pulm.hypertension) 20 100 mg PO ONCE PRN sexual activity 12/10/21 12/28/21 Rx mg tablet #30 tabs ergocalciferol (vitamin D2) 1,250 50,000 unit PO BID 12/28/21 12/28/21 History mcg (50,000 unit) capsule (Vitamin D2) guaifenesin 600 mg tablet, 600 mg PO Q12H PRN Congestion 12/28/21 12/28/21 History extended release 12 hr (Mucinex) Patient History Medical History BPH (benign prostatic hyperplasia) Diabetes mellitus, type 2 Emphysema of lung CXR and previous chest CT findings consistent with emphysema and asbestos - related disease. GERD (gastroesophageal reflux disease) Gout Hearing deficit Hyperlipidemia Hypertension Kidney stones hx Small bowel obstruction a few times and no surgery Surgical History History of appendectomy Hx of lithotripsy S/P cholecystectomy Family History Mother Diabetes Breast cancer Father Prostate cancer Denies family history of Myocardial infarction Stroke Social History Smoking Status: Never smoker Second Hand Exposure: No; Hx Alcohol Use: Yes Alcohol type: wine Hx Substance Use: No Preferred Language: Amharic Communication Ability: Effective Rodbuster Required: No Beliefs That Will Affect Care: None marital status: Current Living Situation: Alone Feels Safe at Home: Yes Assistive Devices: Glasses, Hearing Aid - Left and Hearing Aid - Right Review of Systems Constitutional: no fever and no chills Eyes: no eye pain Ear, Nose, Mouth, Throat: no ear pain Respiratory: no cough and no dyspnea Cardiovascular: no chest pain Gastrointestinal: as per Subjective / HPI Genitourinary: no dysuria Musculoskeletal: no back pain Integumentary: no rash Neurologic: no localized weakness Physical Exam Constitutional: WD/WN, vitals as above Eyes: no conjunctival abnormality ENMT: Ears: no hearing impairment and no external ear abnormality Mouth: no oropharynx abnormality Neck: trachea midline Respiratory: normal respiratory effort; no respiratory distress and no labored breathing Cardiovascular: Rate/Rhythm: regular rate and regular rhythm Gastrointestinal (Abdomen): Abdomen is mildly distended. Bowel sounds are present. There is no rebound tenderness or guarding, but the patient did experience some pain with palpation greatest in the periumbilical region. His abdomen was not tympanic to percussion. I did not appreciate any hernias. The patient had a well-healed midline incision. He also had a well-healed Michael incision Musculoskeletal: No calf tenderness. 1+ lower extremity edema noted bilateral Skin: no rashes Neurologic: moves all extremities Psychiatric: A+Ox3, euthymic affect Results & Data ([facility]) Vital Signs (Past 12 Hours) Vital Signs Temp Pulse Pulse Resp BP Pulse Ox O2 Del Method 12/28/21 21:10 98 H 18 156/72 H 94 Room Air 12/28/21 18:56 36.8 C 102 H 20 93 Room Air PG Care Time/CCT Total # of Minutes Spent Total Time Spent with Patient: Total time spent is greater than 50% in coordination of care (as documented) at patient's floor/unit and/or counseling patient: Coding Level of Care Code 33459 Inpt Consult Level 5 Diagnoses SBO (small bowel obstruction) K56.609
--- NOTE | 2021-12-29 01:02 | History & Physical Report ---
Date of Service December 29, 2021 Assessment & Plan (1) SBO (small bowel obstruction): Plan: Recurrent small bowel obstruction/high-grade/likely secondary to adhesions- NPO NSS + KCl 20 mill equivalents 100 mils per hour NG tube to low intermittent suction Acetaminophen 1 g IV every 8 hours. Mild pain or fever Toradol 30 mg IV every 6 hours as needed moderate pain Morphine sulfate 4 mg IV every 3 hours as needed severe pain Zofran 4 mg IV every 6 hours as needed Famotidine 20 mg IV every 12 hours General surgery has seen the patient (2) Hyperlipidemia: Plan: Hold lovastatin Check a fasting lipid panel (3) GERD (gastroesophageal reflux disease): Plan: Famotidine IV as noted (4) DM type 2 (diabetes mellitus, type 2): Plan: Hold metformin Placed on Accu-Cheks with NovoLog coverage Check hemoglobin A1c (5) BPH (benign prostatic hyperplasia): Plan: Hold finasteride Monitor output (6) Hypertension: Plan: Hold ASA (7) Gout: Plan: Hold allopurinol History of Present Illness Chief Complaint: The patient presents to the emergency department with complaint of nausea and vomiting that began the previous evening, improved when he woke up this morning, and to worsened again as he attempted to eat this afternoon. He reports his symptoms and pattern are consistent with his several previous bowel obstructions Primary Care Provider: Indio Foster MD The patient is a 86-year-old male with a past medical history including recurrent small bowel obstruction, gout, pneumonia due to COVID-19 virus, erectile dysfunction, renal stones, hyperlipidemia, GERD, diabetes mellitus type 2, BPH, nephrolithiasis and urinary frequency. The patient presents with symptoms as noted above Work-up in the emergency department included CT scan of abdomen pelvis which was consistent with high-grade small bowel obstruction. Allergies Allergy/AdvReac Type Severity Reaction Status Date / Time No Known Allergies Allergy Verified 12/28/21 22:39 Home Medications Medication Instructions Recorded Confirmed Type allopurinol 100 mg tablet 100 mg PO HS 06/25/18 12/28/21 History aspirin 325 mg tablet 325 mg PO HS 06/25/18 12/28/21 History cyanocobalamin (vitamin B-12) 500 500 mcg PO HS 06/25/18 12/28/21 History mcg tablet (Vitamin B-12) lovastatin 20 mg tablet 20 mg PO HS 06/25/18 12/28/21 History metformin 500 mg tablet 500 mg PO HS 06/25/18 12/28/21 History multivitamin 1 tab PO HS 06/25/18 12/28/21 History pantoprazole 40 mg tablet,delayed 40 mg PO BID 06/25/18 12/28/21 History release zolpidem 5 mg tablet 5 mg PO HS PRN Sleep 06/25/18 12/28/21 History docusate sodium 100 mg capsule 100 mg PO BID #1 cap 06/28/18 12/28/21 Rx (Colace) thiamine HCl (vitamin B1) 25 mg 25 mg PO HS 12/18/19 12/28/21 History tablet finasteride 5 mg tablet 5 mg PO DAILY 02/07/21 12/28/21 History sildenafil (pulm.hypertension) 20 100 mg PO ONCE PRN sexual activity 12/10/21 12/28/21 Rx mg tablet #30 tabs ergocalciferol (vitamin D2) 1,250 50,000 unit PO BID 12/28/21 12/28/21 History mcg (50,000 unit) capsule (Vitamin D2) guaifenesin 600 mg tablet, 600 mg PO Q12H PRN Congestion 12/28/21 12/28/21 History extended release 12 hr (Mucinex) Past Med/Surg History Medical History BPH (benign prostatic hyperplasia) Diabetes mellitus, type 2 Emphysema of lung CXR and previous chest CT findings consistent with emphysema and asbestos - related disease. GERD (gastroesophageal reflux disease) Gout Hearing deficit Hyperlipidemia Hypertension Kidney stones hx Small bowel obstruction a few times and no surgery Surgical History History of appendectomy Hx of lithotripsy S/P cholecystectomy Family History Mother Diabetes Breast cancer Father Prostate cancer Denies family history of Myocardial infarction Stroke Social History Smoking Status: Former smoker Second Hand Exposure: No; Hx Alcohol Use: Yes Alcohol type: beer Hx Substance Use: No Preferred Language: Turkmen Communication Ability: Effective Automatic Silk Screen Printer Required: No Beliefs That Will Affect Care: None marital status: Current Living Situation: Alone Feels Safe at Home: Yes Assistive Devices: Hearing Aid - Bilateral Review of Systems Review of Systems: The patient denies chest pain, palpitations, shortness of breath, dyspnea on exertion, cough, lower extremity swelling, sore throat, fevers, chills, sweats, weight change, blood in urine or stool, dysuria, urinary frequency or urgency, lightheadedness, dizziness, headache, memory loss, loss of consciousness, rash, abnormal bruising or bleeding, imbalance, focal or generalized weakness, numbness or tingling in arms or legs, generalized arthralgias or myalgias, back or neck pain, or night sweats. The review of systems is otherwise negative other than for that already noted above, and at least 10 systems have been reviewed. Physical Exam Physical Exam: The patient is awake, alert and oriented 3, well developed and well nourished, normocephalic and atraumatic, lying in bed and in no acute distress. HEENT--PERRL, EOMI, mucous membranes and oropharynx mildly dry. Neck--supple. No JVD. No bruits. Thyroid normal, trachea midline, no adenopathy. Heart--normal S1 and S2. No murmurs, rubs or gallops. Lungs--clear bilaterally, no respiratory distress, no accessory muscle use. Abdomen--decreased bowel sounds and soft. Mildly distended. Extremities--no cyanosis or clubbing. No edema. Dermatologic--normal skin turgor, normal color, no abnormal lymph nodes, no rash. Neurologic--cranial nerves II through XII grossly intact. Rheumatologic--normal range of motion. Psychiatric--normal affect. Results & Data Results & Data ([facility]) Vital Signs (Past 12 Hours) Vital Signs Temp Pulse Pulse Resp BP Pulse Ox O2 Del Method 12/28/21 21:10 98 H 18 156/72 H 94 Room Air 12/28/21 18:56 36.8 C 102 H 20 93 Room Air Laboratory Results Laboratory Results WBC 10.00 K/ul (4.8-10.8) 12/28/21 19:52 RBC 4.53 M/uL (4.63-6.08) L 12/28/21 19:52 Hgb 14.9 g/dl (14.0-18.0) 12/28/21 19:52 Hct 42.6 % (40.1-51.0) 12/28/21 19:52 MCV 94.0 fL (80.0-100.0) 12/28/21 19:52 MCH 32.9 pg (25.0-34.0) 12/28/21 19:52 MCHC 35.0 g/dL (32.0-36.0) 12/28/21 19:52 RDW Std Deviation 46.3 fL (36.4-46.3) 12/28/21 19:52 RDW Coeff of Mik 13.6 % (11.5-14.5) 12/28/21:52 Plt Count 211 K/uL (130-400) 12/28/21:52 MPV 10.1 fL (9.4-12.4) 12/28/21 19:52 Immature Gran % (Auto) 2.0 % 12/28/21 19:52 Neut % (Auto) 78.8 % 12/28/21 19:52 Lymph % (Auto) 11.5 % 12/28/21 19:52 [place] % (Auto) 6.9 % 12/28/21 19:52 Eos % (Auto) 0.6 % 12/28/21:52 Baso % (Auto) 0.2 % 12/28/21 19:52 Neut # (Auto) 7.88 K/uL (1.4-6.5) H 12/28/21 19:52 Lymph # (Auto) 1.15 K/uL (1.2-3.4) L 12/28/21 19:52 [place] # (Auto) 0.69 K/uL (0.24-0.82) 12/28/21 19:52 Eos # (Auto) 0.06 K/uL (0-0.50) 12/28/21 19:52 Baso # (Auto) 0.02 K/uL (0-0.2) 12/28/21 19:52 Immature Gran # (Auto) 0.20 K/uL (0.00-0.02) H 12/28/21 19:52 Sodium 138 mmol/L (136-145) 12/28/21 19:52 Potassium 4.4 mmol/L (3.5-5.1) 12/28/21 19:52 Chloride 102 mmol/L (98-107) 12/28/21 19:52 Carbon Dioxide 26 mmol/L (21-32) 12/28/21 19:52 Anion Gap 10 (3-11) 12/28/21 19:52 BUN 21 mg/dl (6-23) 12/28/21 19:52 Creatinine 1.27 mg/dl (0.6-1.4) 12/28/21 19:52 Est Cr Clr Drug Dosing 55.1 ml/min 12/28/21 19:52 Est GFR ( Amer) 58.9 ml/min 12/28/21 19:52 Est GFR (Non-Af Amer) 50.8 ml/min 12/28/21 19:52 BUN/Creatinine Ratio 16.5 (10-20) 12/28/21 19:52 Glucose 192 mg/dl (70-99(Fasting)) H 12/28/21 19:52 Calcium 10.6 mg/dl (8.5-10.1) H 12/28/21 19:52 Total Bilirubin 1.1 mg/dl (0.2-1.0) H 12/28/21 19:52 AST 18 U/L (13-39) 12/28/21 19:52 ALT 13 U/L (7-52) 12/28/21 19:52 Alkaline Phosphatase 60 U/L (34-104) 12/28/21 19:52 Total Protein 7.6 gm/dl (6.0-8.3) 12/28/21 19:52 Albumin 4.1 gm/dl (3.4-5.0) 12/28/21 19:52 Globulin 3.5 gm/dl (2.5-4.0) 12/28/21 19:52 Albumin/Globulin Ratio 1.2 (0.9-2) 12/28/21 19:52 Lipase 12 U/L (11-82) 12/28/21 19:52 Urine Color Dark Yellow 12/28/21 20:36 Urine Appearance Cloudy (Clear) A 12/28/21 20:36 Urine pH 5.0 (4.5-7.5) 12/28/21 20:36 Ur Specific [place] 1.027 (1.000-1.030) 12/28/21 20:36 Urine Protein 2+ (Negative) H 12/28/21 20:36 Urine Glucose (UA) Negative (Negative) 12/28/21 20:36 Urine Ketones Trace (Negative) H 12/28/21 20:36 Urine Blood Negative (Negative) 12/28/21 20:36 Urine Nitrite Negative (Negative) 12/28/21 20:36 Urine Bilirubin 1+ (Negative) H 12/28/21 20:36 Urine Urobilinogen Negative (Negative) 12/28/21 20:36 Ur Leukocyte Esterase Trace (Negative) H 12/28/21 20:36 Urine WBC (Auto) 1-5 /hpf (0-5) 12/28/21 20:36 Urine RBC (Auto) 0-4 /hpf (0-4) 12/28/21 20:36 U Hyaline Cast (Auto) >30 /lpf (0-5) H 12/28/21 20:36 U Epithel Cells (Auto) 10-20 /lpf (0-5) H 12/28/21 20:36 Urine Bacteria (Auto) Negative (Negative) 12/28/21 20:36 SARS-CoV-2, RNA, NAAT NEGATIVE (NEGATIVE) 12/28/21 23:11 Diagnostic Findings [facility] Patient: TRI RIVERO (Male) : 35 Status: ER Date: 12/28/21 23:35 Room #: History: PT. REPORTS DIFFUSE ABDOMINAL PAIN, NAUSEA HISTORY OF SM. BOWEL OBSTRUCTIONS APPENDIX NOT PRESENT OPTI 350 94 CC ON FIRST ATTEMPT TO SCAN AND INJECT; PT.'S IV BLEW AND LEAKED. SCAN STOPPED; NEW IV HAD TO BEST PLACED. SECON D ATTEMPT SUCCESFFUL WITH NEW IV SITE - CONTRAST DELAY SEEN IN BLADDER Slices: [id number] Priors: Tech: Kali Readilyn @ [phone] Exams: CT ABDOMEN & PELVIS With Contrast Contrast: IV Amt: OPTI 350 94 CC Accession Numbers: [id number] Referring Physician: MICHELLE RENEE Preliminary Findings Only See Final Report For Complete Findings CT ABDOMEN & PELVIS With Contrast: Dilated loops of small bowel measure up to 4.5 cm with a collapsed appearance of distal small bowel loops compatible with high-grade small bowel obstruction potentially related to adhesions Radiologist: Cordell Sena MD Study ready at 23:38 and initial results transmitted at 00:27 *This report constitutes a preliminary interpretation only. Non-acute findings felt to be unrelated to the clinical presentation may not be discussed in this report. The study will be interpreted and a final report will be generated by the local Radiologist the following shift. To reach the [facility] radiology department call [phone]. If a discrepancy is found between the preliminary and final interpretations of this study, please notify us via our Client Portal at [email or web address], under QA Exams. You can also fax this report with a description of the discrepancy, or include the final report, to our daytime fax number [phone]. If faxing, please indicate the severity of discrepancy using one of the following categories: [ ] 1 - Agree/Informational [ ] 2 - Unlikely to Affect Management [ ] 3 - Possible Eventual Change of Management [ ] 4 - Probable Immediate Change of Management For all other patient related information, please fax us at [phone]. [id number] Code Status & VTE Plan Code Status Full code VTE Prophylaxis Plan VTE Prophylaxis will be ordered: Yes PG Care Time/CCT Total # of Minutes Spent Total Time Spent with Patient: Total time spent is greater than 50% in coordination of care (as documented) at patient's floor/unit and/or counseling patient: Coding Level of Care Code 06976 Initial Inpt Care Lvl 3 Diagnoses SBO (small bowel obstruction) K56.609 Hyperlipidemia E78.5 Hyperlipidemia type: unspecified GERD (gastroesophageal reflux disease) K21.9 Esophagitis presence: esophagitis presence not specified DM type 2 (diabetes mellitus, type 2) E11.9 Diabetes mellitus fdc insulin use: without lobsterman use Diabetes mellitus complication status: without complication BPH (benign prostatic hyperplasia) N40.0 Lower urinary tract symptom presence: symptoms absent Hypertension I10 Gout M10.9 (1) Hyperlipidemia Hyperlipidemia type: unspecified Qualified Code(s): E78.5 - Hyperlipidemia, unspecified (2) GERD (gastroesophageal reflux disease) Esophagitis presence: esophagitis presence not specified Qualified Code(s): K21.9 - Gastro-esophageal reflux disease without esophagitis (3) DM type 2 (diabetes mellitus, type 2) Diabetes mellitus fdc insulin use: without fdc use Diabetes mellitus complication status: without complication Qualified Code(s): E11.9 - Type 2 diabetes mellitus without complications (4) BPH (benign prostatic hyperplasia) Lower urinary tract symptom presence: symptoms absent Qualified Code(s): N40.0 - Benign prostatic hyperplasia without lower urinary tract symptoms
[2021-12-29] MEDS ORDERED: CARBOHYDRATES FOR HYPOGLYCEMIA PO PRN (02:45)
[2021-12-29] MEDS ORDERED: GLUCOSE 40% GEL 15 GM TUBE PO PRN (02:45)
[2021-12-29] MEDS ORDERED: GLUCOSE 10 TAB/TUBE PO PRN (02:45)
[2021-12-29] MEDS ORDERED: MoRPHine SULFATE 4 MG/ML 1 ML CARP\\VIAL IV PRN (02:45)
[2021-12-29] MEDS ORDERED: DEXTROSE 50% 50 ML SYRINGE IV PRN (02:45)
[2021-12-29] MEDS ORDERED: ONDANSETRON INJ 2 MG/ML 2 ML VIAL IV PRN (02:45)
[2021-12-29] MEDS ORDERED: ACETAMINOPHEN 1,000 MG/100 ML VIAL IV PRN (02:45)
[2021-12-29] MEDS ORDERED: GLUCAGON FOR INJ 1 MG VIAL SQ PRN (02:45)
[2021-12-29] MEDS ORDERED: KETOROLAC TROMETHAMINE 15 MG/ML VIAL IV PRN (02:56)
[2021-12-29] MEDS ORDERED: PIPERACILLIN/TAZOBACTAM 4.5 GM in DEXTROSE 5% 100 ML IV ONE (03:00)
[2021-12-29] MEDS: NSS + 20MEQ KCL 20 MEQ/1,000 ML BAG IV SCH ×3 (03:08→23:38)
[2021-12-29] MEDS ORDERED: Nursing to Pharmacy Communication SCH (03:45)
[2021-12-29 06:03] LABS: Basophils # (auto) 0.02 K/uL (0-0.2); Basophils % (auto) 0.3 %; Eosinophils # (auto) 0.06 K/uL (0-0.50); Eosinophils % (auto) 0.8 %; Hematocrit (blood only) 38.1 % (40.1-51.0); Hemoglobin 13.1 g/dl (14.0-18.0); Immature Granulocytes % (auto) 1.4 %; Lymphocytes # (auto) 1.37 K/uL (1.2-3.4); Lymphocytes % (auto) 18.9 %; Mean Corpuscular Hemoglobin 32.3 pg (25.0-34.0); Mean Corpuscular Hgb Conc 34.4 g/dL (32.0-36.0); Mean Corpuscular Volume 93.8 fL (80.0-100.0); Mean Platelet Volume 10.3 fL (9.4-12.4); Monocytes # (auto) 0.99 K/uL (0.24-0.82); Monocytes % (auto) 13.6 %; Neutrophils # (auto) 4.72 K/uL (1.4-6.5); Platelet Count 173 K/uL (130-400); RDW Coefficient of Variation 13.4 % (11.5-14.5); RDW Standard Deviation 46.4 fL (36.4-46.3); Red Blood Count 4.06 M/uL (4.63-6.08); White Blood Count 7.26 K/ul (4.8-10.8)
[2021-12-29] MEDS: INSULIN ASPART PER UNIT SC SCH ×3 (06:07→17:46)
[2021-12-29 06:24] LABS: Albumin Globulin Ratio 1.4 (0.9-2); Albumin Level 3.8 gm/dl (3.4-5.0); BUN Creatinine Ratio 17.2 (10-20); Bilirubin,Total 1.4 mg/dl (0.2-1.0); Calcium 9.4 mg/dl (8.5-10.1); Creatinine Clr Calc Pharmacy 54.1 ml/min; Est GFR (African American) 58.3 ml/min; Est GFR (Non-African American) 50.3 ml/min; Globulin 2.7 gm/dl (2.5-4.0); Total Protein 6.5 gm/dl (6.0-8.3)
--- NOTE | 2021-12-29 07:20 | Hospitalist Progress Note ---
Date of Service December 29, 2021 Assessment & Plan (1) SBO (small bowel obstruction): Plan: This is an 86-year-old male with a history of open cholecystectomy, open appendectomy, multiple prior small bowel obstructions, hypertension who presented to [facility] for abdominal pain and emesis, subsequently found to have recurrent high-grade small bowel obstruction. Recurrent SBO Recurrent small bowel obstruction/high-grade/likely secondary to adhesions NPO w/ NSS + KCl 20 at 100 mils per hour until tolerating PO - AAT per surgery NG tube placed to low intermittent suction Pain and nausea control: Acetaminophen 1 g IV every 8 hours scheduled Toradol 30 mg IV every 6 hours as needed moderate pain Morphine sulfate 4 mg IV every 3 hours as needed severe pain Zofran 4 mg IV every 6 hours as needed Famotidine 20 mg IV every 12 hours Surgery following - appreciate insight/recommendations Hold further Zosyn for now (2) Hyperlipidemia: Plan: Hold lovastatin Check a fasting lipid panel (3) GERD (gastroesophageal reflux disease): Plan: Famotidine IV as noted (4) DM type 2 (diabetes mellitus, type 2): Plan: A1c 6.6% on 12/29 - largely unchanged compared to readings over the last year Hold metformin Placed on Accu-Cheks with NovoLog coverage (5) BPH (benign prostatic hyperplasia): Plan: Hold finasteride Monitor output (6) Hypertension: Plan: Hold ASA (7) Gout: Plan: Hold allopurinol Plan Code: Full Diet: NPO PPX: SCDs Dispo: MS Consult: Surgery Admission and Anticipated Discharge Date Admission Date: December 29, 2021 Supervising Physician Co-Signing Physician Notes I personally examined the patient and verified all tatum points of history and exam, discussed case, and agree with decision making with Dr Ramirez pain under reasonable control. nausea controlled as well vitals noted nad heent nc at mmm breathing unlabored no accessory muscles good effort skin no rashes no pallor or icterus neuro no focal deficits SBO - almost certainly adhesional - NGT, pain/nausea control, supportive care DVT proph - lovenox Subjective NAEO. Feeling ok this morning - pain about a 4/10, improved from when she came in. Nausea still mild, but better than before. Not yet passing gas. Review of Systems Review of Systems: as per HPI Physical Exam Physical Exam: General: 86-year old male who is alert, oriented, and appears in no acute distress. Cardiac: Normal rate and regular rhythm; S1 and S2 present with no murmurs, rubs, or gallops. Pulmonary: Good respiratory effort with symmetric expansion of the chest. No use of accessory muscles. Lungs were clear to auscultation bilaterally with no crackles or wheezes. Abdominal: Normoactive bowel sounds. Abdomen was moderately distended and tympanic in the LUQ/LLQ; no rebound/guarding. Extremities: Upper and lower extremities are warm and well perfused. No peripheral edema in the lower extremities bilaterally Results & Data Results & Data ([facility]) Vital Signs (Past 12 Hours) Vital Signs Temp Pulse Pulse Resp BP Pulse Ox O2 Del Method 12/29/21 05:48 36.8 C 72 16 128/77 96 Room Air 12/29/21 02:46 36.5 C 99 H 18 181/82 H 96 Room Air 12/29/21 01:20 90 20 141/87 H 95 Room Air 12/29/21 01:20 90 20 94 Room Air 12/28/21 21:10 98 H 18 156/72 H 94 Room Air Resident Activity Tracking Resident Involvement: Resident Care Provided Care Provided: Adult Hospital Medicine (1) BPH (benign prostatic hyperplasia) Lower urinary tract symptom presence: symptoms absent Qualified Code(s): N40.0 - Benign prostatic hyperplasia without lower urinary tract symptoms (2) DM type 2 (diabetes mellitus, type 2) Diabetes mellitus complication status: without complication Diabetes mellitus mcfp insulin use: without implementation engineer use Qualified Code(s): E11.9 - Type 2 diabetes mellitus without complications (3) Hyperlipidemia Hyperlipidemia type: unspecified Qualified Code(s): E78.5 - Hyperlipidemia, unspecified (4) GERD (gastroesophageal reflux disease) Esophagitis presence: esophagitis presence not specified Qualified Code(s): K21.9 - Gastro-esophageal reflux disease without esophagitis
[2021-12-29] MEDS ORDERED: INSULIN ASPART PER UNIT SC SCH (07:30)
--- NOTE | 2021-12-29 07:34 | CT Scan Report ---
ABDOMEN AND PELVIS CT WITH IV CONTRAST CT DOSE: 1432.09 mGy.cm HISTORY: Generalized abdominal pain. TECHNIQUE: Multiaxial CT images of the abdomen and pelvis were performed following the use of intrave nous contrast. A dose lowering technique was utilized adhering to the principles of ALARA. COMPARISON STUDY: Abdomen and pelvis CT 02/07/2021. FINDINGS: Bibasilar calcified pleural plaques are noted. There is a stable 3 cm density within the le ft lower lobe. This may represent atelectasis/scarring. No pneumoperitoneum. No pneumatosis. Multiple dilated loops of proximal to mid small bowel with a focal transition point within the mid anterior a bdomen on image 270. Distal to this transition point the small bowel is decompressed. Therefore, this is consistent with a small bowel obstruction likely on the basis of adhesions. Calcified granulomas again noted within the spleen. Bilateral renal hypodense lesions with the largest on the left measuri ng 3.7 cm. These remain stable and likely represent cysts. No hydronephrosis. There is contrast withi n the urinary system. The main portal vein is patent. No retroperitoneal lymphadenopathy. Normal lena roseline abdominal aorta. Small fat-containing bilateral inguinal hernias. No pelvic free fluid. Surgical clips within the prostate gland. Colonic diverticulosis. No evidence for acute diverticulitis. Loss o f height at L5 is likely chronic. IMPRESSION: 1. Small bowel obstruction with the transition point located within the mid anterior abdomen likely o n the basis of adhesions. 2. Bibasilar calcified pleural plaques and a stable 3 cm density within the left lower lobe. This may represent atelectasis/scarring. 3. Additional findings as described above. ACT 112: Negative or not required by law. Electronically signed by: Braden Walter M.D. 12/29/2021 7:33 AM
[2021-12-29 07:41] LABS: Estimated Average Glucose 143 mg/dl; Hemoglobin A1C 6.6 % (4.5-5.6)
[2021-12-29] MEDS ORDERED: PIPERACILLIN/TAZOBACTAM 4.5 GM in DEXTROSE 5% 100 ML IV SCH (08:00)
--- NOTE | 2021-12-29 08:03 | XRay Report ---
KUB HISTORY: NG tube insertion. COMPARISON: KUB 03/23/2019. FINDINGS: A nasogastric tube terminates in the stomach. There is contrast within the renal collecting systems from the prior CT examination. Dilated loop of small bowel within the upper abdomen consiste nt the patient's known small bowel obstruction. No renal calculi. No ureteral calculi. No pneumoperi toneum or pneumatosis. IMPRESSION: Nasogastric tube terminates in the stomach. ACT 112: Negative or not required by law. Electronically signed by: Braden Walter M.D. 12/29/2021 8:02 AM
[2021-12-29] MEDS: ACETAMINOPHEN 1,000 MG/100 ML VIAL IV SCH ×3 (08:28→23:38)
[2021-12-29] MEDS: FAMOTIDINE 20 MG in SYRINGE 3 ML IV SCH ×2 (08:57→20:18)
[2021-12-30] MEDS: INSULIN ASPART PER UNIT SC SCH ×5 (00:07→20:30)
[2021-12-30 06:05] LABS: Basophils # (auto) 0.02 K/uL (0-0.2); Basophils % (auto) 0.4 %; Eosinophils # (auto) 0.08 K/uL (0-0.50); Eosinophils % (auto) 1.6 %; Hematocrit (blood only) 36.8 % (40.1-51.0); Hemoglobin 12.1 g/dl (14.0-18.0); Immature Granulocytes # (auto) 0.08 K/uL (0.00-0.02); Immature Granulocytes % (auto) 1.6 %; Lymphocytes # (auto) 1.63 K/uL (1.2-3.4); Lymphocytes % (auto) 32.7 %; Mean Corpuscular Hemoglobin 32.3 pg (25.0-34.0); Mean Corpuscular Hgb Conc 32.9 g/dL (32.0-36.0); Mean Corpuscular Volume 98.1 fL (80.0-100.0); Monocytes # (auto) 0.69 K/uL (0.24-0.82); Monocytes % (auto) 13.8 %; Neutrophils # (auto) 2.49 K/uL (1.4-6.5); Neutrophils % (auto) 49.9 %; Platelet Count 148 K/uL (130-400); RDW Coefficient of Variation 13.7 % (11.5-14.5); RDW Standard Deviation 50.2 fL (36.4-46.3); Red Blood Count 3.75 M/uL (4.63-6.08); White Blood Count 4.99 K/ul (4.8-10.8)
--- NOTE | 2021-12-30 06:35 | Hospitalist Progress Note ---
Date of Service December 30, 2021 Assessment & Plan (1) SBO (small bowel obstruction): Plan: This is an 86-year-old male with a history of open cholecystectomy, open appendectomy, multiple prior small bowel obstructions, hypertension who presented to [facility] for abdominal pain and emesis, subsequently found to have recurrent high-grade small bowel obstruction. Recurrent SBO Recurrent small bowel obstruction/high-grade/likely secondary to adhesions Patient reporting passing BMs and decreased nausea/pain into 12/30 NPO with IVF for now -- AAT per surgery NGT at [facility] -- appreciate surgery input on discontinuation Pain and nausea control: Acetaminophen 1 g IV every 8 hours scheduled -- transition to PO/stop when appropriate Toradol 30 mg IV every 6 hours as needed moderate pain Morphine sulfate 4 mg IV every 3 hours as needed severe pain Zofran 4 mg IV every 6 hours as needed Famotidine 20 mg IV every 12 hours Surgery following - appreciate insight/recommendations No indication for ABX at this time (2) Hyperlipidemia: Plan: Hold lovastatin Check a fasting lipid panel (3) GERD (gastroesophageal reflux disease): Plan: Famotidine IV as noted (4) DM type 2 (diabetes mellitus, type 2): Plan: A1c 6.6% on 12/29 - largely unchanged compared to readings over the last year Hold metformin Placed on Accu-Cheks with NovoLog coverage (5) BPH (benign prostatic hyperplasia): Plan: Hold finasteride Monitor output (6) Hypertension: Plan: Hold ASA (7) Gout: Plan: Hold allopurinol Plan Code: Full Diet: NPO - AAT PPX: SCDs Dispo: MS Consult: Surgery Admission and Anticipated Discharge Date Admission Date: December 29, 2021 Supervising Physician Co-Signing Physician Notes I personally examined the patient and verified all tatum points of history and exam, discussed case, and agree with decision making with Dr Ramirez feeling good a little hungry has had gas and BM no abdominal pain vitals noted nad heent nc at mmm breathing unlabored no accessory muscles good effort skin no rashes no pallor or icterus neuro no focal deficits abd soft nd nt SBO - almost certainly adhesional - improving. clamp NG, anticipate DC - clear liquids and advance as tolerated DVT proph - lovenox Subjective Did not require additional pain medications overnight. Feeling great this morning. Had several BMs over the last 6 hours. Feels belly is less distended. No more nausea, denies pain. Review of Systems Review of Systems: as per HPI Physical Exam Physical Exam: General: 86-year old male who is alert, oriented, and appears in no acute distress. NGT in place. Cardiac: Normal rate and regular rhythm; S1 and S2 present with no murmurs, rubs, or gallops. Pulmonary: Good respiratory effort with symmetric expansion of the chest. No use of accessory muscles. Lungs were clear to auscultation bilaterally with no crackles or wheezes. Abdominal: Normoactive bowel sounds. Abdomen was mildly distended and tympanic in the LUQ/LLQ; no rebound/guarding. Mildly improved from yesterday. Extremities: Upper and lower extremities are warm and well perfused. No peripheral edema in the lower extremities bilaterally Results & Data Results & Data ([facility]) Vital Signs (Past 12 Hours) Vital Signs Temp Pulse Resp BP Pulse Ox O2 Del Method 12/29/21 22:02 36 C L 78 16 148/82 H 91 Room Air 12/29/21 20:20 36.3 C L Resident Activity Tracking Resident Involvement: Resident Care Provided Care Provided: Adult Hospital Medicine (1) BPH (benign prostatic hyperplasia) Lower urinary tract symptom presence: symptoms absent Qualified Code(s): N40.0 - Benign prostatic hyperplasia without lower urinary tract symptoms (2) DM type 2 (diabetes mellitus, type 2) Diabetes mellitus complication status: without complication Diabetes mellitus machine long goods 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 use: without machine long goods helper use Qualified Code(s): E11.9 - Type 2 diabetes mellitus without complications (3) Hyperlipidemia Hyperlipidemia type: unspecified Qualified Code(s): E78.5 - Hyperlipidemia, unspecified (4) GERD (gastroesophageal reflux disease) Esophagitis presence: esophagitis presence not specified Qualified Code(s): K21.9 - Gastro-esophageal reflux disease without esophagitis
[2021-12-30 06:37] LABS: Albumin Globulin Ratio 1.3 (0.9-2); Albumin Level 3.6 gm/dl (3.4-5.0); BUN Creatinine Ratio 20.9 (10-20); Bilirubin,Total 0.8 mg/dl (0.2-1.0); Est GFR (African American) 70.1 ml/min; Est GFR (Non-African American) 60.5 ml/min; Globulin 2.7 gm/dl (2.5-4.0); Potassium 4.3 mmol/L (3.5-5.1); Total Protein 6.3 gm/dl (6.0-8.3)
[2021-12-30] MEDS: ACETAMINOPHEN 1,000 MG/100 ML VIAL IV SCH ×3 (07:35→23:38)
[2021-12-30] MEDS: FAMOTIDINE 20 MG in SYRINGE 3 ML IV SCH ×2 (08:27→20:27)
[2021-12-30] MEDS: ENOXAPARIN INJ 40 MG/0.4 ML SYR SQ SCH (08:28)
[2021-12-30] MEDS: NSS + 20MEQ KCL 20 MEQ/1,000 ML BAG IV SCH ×2 (09:58→20:25)
--- NOTE | 2021-12-30 12:56 | Surgery Progress Note ---
Date of Service December 30, 2021 Assessment & Plan (1) SBO (small bowel obstruction): Plan: Patient here with SBO VSS He is feeling better. denies pain/n/v. NGT w 125cc documented last shift Pt passing flatus and multiple BM's Abdomen, soft, non tender, non distended Formal KUB read pending, but air is seen in colon Will plan on d/c NGT and start clears with diet advancement as tolerates as above. feeling much better. multiple bm's. no nausea. ngt just d/c'd and clears initiated. if tolerates can slowly advance diet. will continue to follow. Admission and Anticipated Discharge Date Admission Date: December 29, 2021 Subjective Patient is feeling well. Denies abdominal pain, nausea/vomiting. Reports passing flatus and multiple BM's. Physical Exam Physical Exam: awake/alert, no distress Gastrointestinal (Abdomen): Inspection/Auscultation: abdomen not distended Percussion/Palpation: abdomen soft; abdomen nontender Results & Data ([facility]) Vital Signs (Past 12 Hours) Vital Signs Temp Pulse Resp BP Pulse Ox O2 Del Method 12/30/21 07:49 36.5 C 61 16 134/70 92 Room Air PG Care Time/CCT Total # of Minutes Spent Total Time Spent with Patient: Total time spent is greater than 50% in coordination of care (as documented) at patient's floor/unit and/or counseling patient: Coding Level of Care Code 14050 Subseq Hosp Care Lvl 2 Diagnoses SBO (small bowel obstruction) K56.609
--- NOTE | 2021-12-30 13:02 | Billing Data ---
Date of Service December 30, 2021 Coding Level of Care Code 25367 Subseq Hosp Care Lvl 3
--- NOTE | 2021-12-30 13:46 | XRay Report ---
KUB HISTORY: Small bowel obstruction. Follow-up. COMPARISON: KUB 12/29/2021. FINDINGS: Nasogastric tube terminates in the proximal stomach. Brachytherapy seeds noted within the p rostate gland. Dilated gas-filled loops of proximal to mid small bowel measure up to 6 cm in diameter consistent with the patient's known history of a small bowel obstruction. There is gas within the no ndistended colon. No renal calculi. No ureteral calculi. No pneumoperitoneum or pneumatosis. IMPRESSION: 1. Nasogastric tube terminates in the proximal stomach. 2. Persistent small bowel obstruction pattern. ACT 112: Negative or not required by law. Electronically signed by: Braden Walter M.D. 12/30/2021 1:44 PM
[2021-12-30] MEDS ORDERED: Nursing to Pharmacy Communication SCH (16:30)
[2021-12-31] MEDS: ACETAMINOPHEN 1,000 MG/100 ML VIAL IV SCH (06:01)
[2021-12-31] MEDS ORDERED: ACETAMINOPHEN 500 MG TAB PO PRN (06:27)
--- NOTE | 2021-12-31 06:31 | Hospitalist Progress Note ---
Date of Service December 31, 2021 Assessment & Plan (1) SBO (small bowel obstruction): Plan: This is an 86-year-old male with a history of open cholecystectomy, open appendectomy, multiple prior small bowel obstructions, hypertension who presented to [facility] for abdominal pain and emesis, subsequently found to have recurrent high-grade small bowel obstruction. Recurrent SBO Recurrent small bowel obstruction/high-grade secondary to adhesions Patient reporting passing BMs and decreased nausea/pain into 12/30 Pain and nausea control: Acetaminophen > Toradol > Morphine PRN Famotidine + Zofran PRN Advancing diet as tolerated - trial solids Surgery following - appreciate insight/recommendations, s/p NGT removal (2) Hyperlipidemia: Plan: Continue lovastatin Check a fasting lipid panel (3) GERD (gastroesophageal reflux disease): Plan: Pantoprazole ongoing (4) DM type 2 (diabetes mellitus, type 2): Plan: A1c 6.6% on 12/29 - largely unchanged compared to readings over the last year Hold metformin Placed on Accu-Cheks with NovoLog coverage (5) BPH (benign prostatic hyperplasia): Plan: Finasteride Monitor output (6) Hypertension: Plan: Continue ASA (7) Gout: Plan: Continue allopurinol Plan Code: Full Diet: AAT PPX: SCDs Dispo: MS Consult: Surgery Admission and Anticipated Discharge Date Admission Date: December 29, 2021 Supervising Physician Co-Signing Physician Notes I personally examined the patient and verified all tatum points of history and exam, discussed case, and agree with decision making with Dr Ramirez feeling good ate regular food no pain no nausea would like to go home further (+) BM vitals noted nad heent nc at mmm breathing unlabored no accessory muscles good effort skin no rashes no pallor or icterus neuro no focal deficits abd soft nd nt SBO - almost certainly adhesional - improving. tolerating regular diet, safe/stable for home DVT proph - lovenox Subjective NAEO. Full liquids went well yesterday. Eager for a full meal of solids. No more nausea. Pain resolved. Passing gas. BM yesterday evening. Review of Systems Review of Systems: as per HPI Physical Exam Physical Exam: General: 86-year old male who is alert, oriented, and appears in no acute distress. NGT in place. Cardiac: Normal rate and regular rhythm; S1 and S2 present with no murmurs, rubs, or gallops. Pulmonary: Good respiratory effort with symmetric expansion of the chest. No use of accessory muscles. Lungs were clear to auscultation bilaterally with no crackles or wheezes. Abdominal: Normoactive bowel sounds. Abdomen was mildly distended; no rebound/guarding. Improved from yesterday. Extremities: Upper and lower extremities are warm and well perfused. No peripheral edema in the lower extremities bilaterally Results & Data Results & Data ([facility]) Vital Signs (Past 12 Hours) Vital Signs Temp Pulse Resp BP Pulse Ox O2 Del Method 12/30/21 22:22 36.6 C 57 L 16 122/68 95 Room Air Resident Activity Tracking Resident Involvement: Resident Care Provided Care Provided: Adult Hospital Medicine (1) BPH (benign prostatic hyperplasia) Lower urinary tract symptom presence: symptoms absent Qualified Code(s): N40.0 - Benign prostatic hyperplasia without lower urinary tract symptoms (2) DM type 2 (diabetes mellitus, type 2) Diabetes mellitus complication status: without complication Diabetes mellitus rodent exterminator insulin use: without halfway use Qualified Code(s): E11.9 - Type 2 diabetes mellitus without complications (3) Hyperlipidemia Hyperlipidemia type: unspecified Qualified Code(s): E78.5 - Hyperlipidemia, unspecified (4) GERD (gastroesophageal reflux disease) Esophagitis presence: esophagitis presence not specified Qualified Code(s): K21.9 - Gastro-esophageal reflux disease without esophagitis
[2021-12-31 07:24] LABS: BUN Creatinine Ratio 16.5 (10-20); Calcium 8.6 mg/dl (8.5-10.1); Creatinine Clr Calc Pharmacy 81.5 ml/min; Est GFR (African American) 91.4 ml/min; Est GFR (Non-African American) 78.9 ml/min; Potassium 3.9 mmol/L (3.5-5.1)
[2021-12-31] MEDS ORDERED: PANTOprazole 40 MG TAB PO SCH (09:00)
[2021-12-31] MEDS ORDERED: FINASTERIDE 5 MG TAB PO SCH (09:00)
[2021-12-31] MEDS: ENOXAPARIN INJ 40 MG/0.4 ML SYR SQ SCH (09:22)
[2021-12-31] MEDS: INSULIN ASPART PER UNIT SC SCH (09:23)
--- NOTE | 2021-12-31 10:09 | Discharge Summary ---
Date of Service December 31, 2021 Admission HPI Per Admitting Provider The patient is a 86-year-old male with a past medical history including recurrent small bowel obstruction, gout, pneumonia due to COVID-19 virus, erectile dysfunction, renal stones, hyperlipidemia, GERD, diabetes mellitus type 2, BPH, nephrolithiasis and urinary frequency. The patient presents with symptoms as noted above Work-up in the emergency department included CT scan of abdomen pelvis which was consistent with high-grade small bowel obstruction. Admission Exam Per Admitting Provider The patient is awake, alert and oriented 3, well developed and well nourished, normocephalic and atraumatic, lying in bed and in no acute distress. HEENT--PERRL, EOMI, mucous membranes and oropharynx mildly dry. Neck--supple. No JVD. No bruits. Thyroid normal, trachea midline, no adenopathy. Heart--normal S1 and S2. No murmurs, rubs or gallops. Lungs--clear bilaterally, no respiratory distress, no accessory muscle use. Abdomen--decreased bowel sounds and soft. Mildly distended. Extremities--no cyanosis or clubbing. No edema. Dermatologic--normal skin turgor, normal color, no abnormal lymph nodes, no rash. Neurologic--cranial nerves II through XII grossly intact. Rheumatologic--normal range of motion. Psychiatric--normal affect. Principal Diagnosis SBO Discharge Exam General: 86-year old male who is alert, oriented, and appears in no acute distress. NGT in place. Cardiac: Normal rate and regular rhythm; S1 and S2 present with no murmurs, rubs, or gallops. Pulmonary: Good respiratory effort with symmetric expansion of the chest. No use of accessory muscles. Lungs were clear to auscultation bilaterally with no crackles or wheezes. Abdominal: Normoactive bowel sounds. Abdomen was mildly distended; no rebound/guarding. Improved from yesterday. Extremities: Upper and lower extremities are warm and well perfused. No peripheral edema in the lower extremities bilaterally Discharge Data Allergies Allergy/AdvReac Type Severity Reaction Status Date / Time No Known Allergies Allergy Verified 12/28/21 22:39 Consultations 12/29/21 00:30 Consult General Surgery Routine 12/29/21 00:38 ED Decision to Admit Stat Ordered Studies 12/28/21 22:10 CT abd pelvis IV con only Urgent ABDOMEN AND PELVIS CT WITH IV CONTRAST CT DOSE: 1432.09 mGy.cm HISTORY: Generalized abdominal pain. TECHNIQUE: Multiaxial CT images of the abdomen and pelvis were performed following the use of intravenous contrast. A dose lowering technique was utilized adhering to the principles of ALARA. COMPARISON STUDY: Abdomen and pelvis CT 02/07/2021. FINDINGS: Bibasilar calcified pleural plaques are noted. There is a stable 3 cm density within the left lower lobe. This may represent atelectasis/scarring. No pneumoperitoneum. No pneumatosis. Multiple dilated loops of proximal to mid small bowel with a focal transition point within the mid anterior abdomen on image 270. Distal to this transition point the small bowel is decompressed. Therefore, this is consistent with a small bowel obstruction likely on the basis of adhesions. Calcified granulomas again noted within the spleen. Bilateral renal hypodense lesions with the largest on the left measuring 3.7 cm. These remain stable and likely represent cysts. No hydronephrosis. There is contrast within the urinary system. The main portal vein is patent. No retroperitoneal lymphadenopathy. Normal caliber abdominal aorta. Small fat-containing bilateral inguinal hernias. No pelvic free fluid. Surgical clips within the prostate gland. Colonic diverticulosis. No evidence for acute diverticulitis. Loss of height at L5 is likely chronic. IMPRESSION: 1. Small bowel obstruction with the transition point located within the mid anterior abdomen likely on the basis of adhesions. 2. Bibasilar calcified pleural plaques and a stable 3 cm density within the left lower lobe. This may represent atelectasis/scarring. 3. Additional findings as described above. Hospital Course (1) SBO (small bowel obstruction): This is an 86-year-old male with a history of open cholecystectomy, open appendectomy, multiple prior small bowel obstructions, hypertension who presented to [facility] for abdominal pain and emesis, subsequently found to have recurrent high-grade small bowel obstruction. Recurrent SBO Recurrent small bowel obstruction/high-grade secondary to adhesions Patient reporting passing BMs and decreased nausea/pain into 12/30 Pain and nausea controlled with minimal intervention while here Tolerated solids prior to discharge (2) Hyperlipidemia: Continue lovastatin Check a fasting lipid panel (3) GERD (gastroesophageal reflux disease): Pantoprazole ongoing (4) DM type 2 (diabetes mellitus, type 2): A1c 6.6% on 12/29 - largely unchanged compared to readings over the last year Hold metformin Placed on Accu-Cheks with NovoLog coverage (5) BPH (benign prostatic hyperplasia): Finasteride Monitor output (6) Hypertension: Continue ASA (7) Gout: Continue allopurinol Plan Code: Full Diet: AAT PPX: SCDs Dispo: MS Consult: Surgery Total Time Total Time Spent Total Time Spent (In Minutes): <30 Discharge Plan Discharge Items Patient Disposition: Home - Self-Care Reason For Visit: SBO Discharge Diagnosis: small bowel obstruction Activity: Per Instructions section Non-emergency contact: Primary Care Provider Call non-emergency contact if: your symptoms worsen, your pain is not contr olled, your pain is worsening and your temperature is above 101 Follow-up/Referrals: Indio Foster MD [Primary Care Provider] - 01/05/22 10:00 am (APPT WITH JOSÉ MIGUEL SEYMOUR PA-C) Diet: Carb Consistent or DM2 Addtl Attending Provider Instructions: You are seen in the [address] [place] [address] for evaluation of abdominal pain. Upon arrival here, you underwent several tests determine the cause of your symptoms. You were found to have small bowel obstruction. You were treated with an NG tube, and pain medicine. You demonstrated progressive and good improvement with slow advancement of your diet. No medication changes made while here. Upon your discharge, please follow-up with your primary care physician within the next 1 to 2 weeks to review this visit. In the interim, if you experience worsening abdominal pain, nausea, vomiting, fever, chills, chest pain, palpitations, or inability to pass a bowel movement/gas, please report to the ER immediately for evaluation. Is a pleasure for caring for you while urinating we wish you all the best in your recovery. Pending Studies at Discharge: No Stand-Alone Forms: My [employer], Smoking Cessation Medications and DC Order Prescriptions: Continued sildenafil (pulm.hypertension) 20 mg tablet 100 mg PO ONCE PRN (Reason: sexual activity) Qty: 30 5RF Rx Instructions: Take approx 1 hour prior to activity. Avoid large or heavy meals for maximum effectiveness. thiamine HCl (vitamin B1) 25 mg Tablet 25 mg PO HS metformin 500 mg tablet 500 mg PO HS allopurinol 100 mg tablet 100 mg PO HS pantoprazole 40 mg tablet,delayed release (DR/EC) 40 mg PO BID zolpidem 5 mg tablet 5 mg PO HS PRN (Reason: Sleep) lovastatin 20 mg tablet 20 mg PO HS multivitamin Tablet 1 tab PO HS aspirin 325 mg Tablet 325 mg PO HS cyanocobalamin (vitamin B-12) [Vitamin B-12] 500 mcg Tablet 500 mcg PO HS docusate sodium [Colace] 100 mg capsule 100 mg PO BID Qty: 1 0RF finasteride 5 mg tablet 5 mg PO DAILY ergocalciferol (vitamin D2) [Vitamin D2] 1,250 mcg (50,000 unit) capsule 50,000 unit PO BID guaifenesin [Mucinex] 600 mg Tablet Extended Release 12hr 600 mg PO Q12H PRN (Reason: Congestion) Discharge Orders: Discharge Order (Routine); Ordered 12/31/21 Ordered By: Kemal Montes/Other Patient Handouts: High Blood Sugar (Hyperglycemia), Managing Type 2 Diabetes Admission Data Admit Date/Time: 12/29/21 01:01 Attending Provider: Kemal Hart Admit Provider: Jean Brenner Primary Care Provider: Indio Foster Other Providers: Jadiel Corona ; Jean Brenner Other Interventions: Discharge Summary Assessment (RN) Last Done: 12/31/21 10:44 Supervising Physician Co-Signing Physician Notes I personally examined the patient and verified all tatum points of history and exam, discussed case, and agree with decision making with Dr Ramirez feeling good ate regular food no pain no nausea would like to go home further (+) BM vitals noted nad heent nc at mmm breathing unlabored no accessory muscles good effort skin no rashes no pallor or icterus neuro no focal deficits abd soft nd nt SBO - almost certainly adhesional - improving. tolerating regular diet, safe/stable for home DVT proph - lovenox Resident Activity Tracking Resident Involvement: Resident Care Provided Care Provided: Adult Hospital Medicine
--- NOTE | 2021-12-31 17:00 | Billing Data ---
Date of Service December 31, 2021 Coding Level of Care Code D/C DAY MANAGEMENT <30 MINS
[2021-12-31] MEDS ORDERED: LOVASTATIN 20 MG TAB PO SCH (21:00)
[2021-12-31] MEDS ORDERED: ASPIRIN 325 MG ECTAB PO SCH (21:00)
[2021-12-31] MEDS ORDERED: THIAMINE HCL 50 MG TABLET PO SCH (21:00)
[2021-12-31] MEDS ORDERED: allopurinoL 100 MG TAB PO SCH (21:00)
== END 2021-12-31 12:33 | disposition home or self-care (01) | DRG 390 ==
LOC: ED 18:43 → SUATTDRO 12-29 01:01 → 3E 12-29 01:01